=== PATIENT | female | born 1955 | race Hispanic/Latino ===

== ENCOUNTER 2018-02-24 13:29 | Emergency (ER) | payer MEDICAID ==
[~2018-02-24 13:29] MED LIST: AMLO10TA4 PO; ATEN100T PO; ATOR20TA65 PO; BISA10SU61 PO; CYCL30DR OP; FLUT30CR12 NASAL; INSNOV SQ; INSU100V12 SQ; NITR0.4T50 SL; OMEP-272 PO
[2018-02-24] MEDS ORDERED: ACETAMINOPHEN-CODEINE 300/30MG TAB ONE (15:26)
== END 2018-02-24 16:35 | disposition home or self-care (01) ==
LOC: EDH 13:29
DX: S02.5XXA Fracture of tooth (traumatic), initial encounter for closed fracture (principal); S13.4XXA Sprain of ligaments of cervical spine, initial encounter; S00.93XA Contusion of unspecified part of head, initial encounter; I12.9 Hypertensive chronic kidney disease with stage 1 through stage 4 chronic kidney disease, or unspecified chronic kidney disease; E11.22 Type 2 diabetes mellitus with diabetic chronic kidney disease; N18.9 Chronic kidney disease, unspecified; F32.9 Major depressive disorder, single episode, unspecified; Z91.041 Radiographic dye allergy status; Z98.890 Other specified postprocedural states; W01.10XA Fall on same level from slipping, tripping and stumbling with subsequent striking against unspecified object, initial encounter; Y93.01 Activity, walking, marching and hiking; Y92.410 Unspecified street and highway as the place of occurrence of the external cause; Y99.8 Other external cause status
CPT/HCPCS: 70486; 72125

== ENCOUNTER 2024-03-08 11:46 | Emergency (ER) | payer MEDICARE ==
[~2024-03-08] VITALS: Ht 152.4 cm; Wt 63.5 kg
[~2024-03-08 11:46] MED LIST changes: -AMLO10TA4 PO; +ASPI-1197 PO; -ATEN100T PO; -ATOR20TA65 PO; +ATOR40TA69 PO; +AZEL137S11 NS; -BISA10SU61 PO; +BUDE10.26 IH; +CARV6.25 PO; +CHOL100040 PO; +CLOP-31 PO; -CYCL30DR OP; +DAPA5TAB PO; +DOXY100C5 PO; +FLUT15.845 NS; -FLUT30CR12 NASAL; +FOLI1TAB85 PO; +GABA-529 PO; +HYDR50TA37 PO; -INSNOV SQ; -INSU100V12 SQ; +LOSA100T59 PO; +MONT-47 PO; +NIFE-78 PO; -NITR0.4T50 SL; -OMEP-272 PO; +OMEP40CA21 PO; +ONDA-104 PO; +TORS20TA4 PO
[2024-03-08 12:53] LABS: BASOPHILS # (AUTO) 0.08 K/uL (0.00-0.20); BASOPHILS % (AUTO) 0.7 % (0.0-5.0); EOSINOPHILS # (AUTO) 0.41 K/uL (0.00-0.70); EOSINOPHILS % (AUTO) 3.7 % (0.0-8.0); HEMATOCRIT 33.4 % (36-48); IMMATURE GRANULOCYTE ABSOLUTE 0.05 K/uL (0-1); LYMPHOCYTES # (AUTO) 1.6 K/uL (1.0-4.8); LYMPHOCYTES % (AUTO) 14.4 % (21.0-51.0); MEAN CORPUSCULAR HGB CONC 31.7 g/dL (32.0-36.0); MEAN CORPUSCULAR VOLUME 97.7 fL (79-99); MONOCYTES # (AUTO) 0.8 K/uL (0.1-1.0); MONOCYTES % (AUTO) 6.9 % (3.0-13.0); NEUTROPHILS # (AUTO) 8.1 K/uL (1.8-7.7); NEUTROPHILS % (AUTO) 73.8 % (40.0-77.0); PLATELET COUNT (AUTO) 290 K/uL (130-400); RED BLOOD CELL COUNT(AUTO) 3.42 MIL/uL (4.00-5.50); RED CELL DISTRIBUTION WIDTH 14.5 % (11.0-15.5)
[2024-03-08 13:22] LABS: B-TYPE NATRIURETIC PEPTIDE 538 pg/mL (0-100)
[2024-03-08 13:23] LABS: POTASSIUM 3.6 mmol/L (3.5-5.1)
[2024-03-08] MEDS ORDERED: CEPH500C2 PO (14:01)
--- NOTE | 2024-03-08 14:02 | ERN ---
General Chief Complaint: Face Pain/Problem Stated Complaint: FACIAL SWELLING ONSET 0800 Time Seen by MD: 11:52 History of Present Illness Initial Comments 68-year-old female who presents for facial swelling. Patient was just admitted to this hospital for about a week for fluid overload. She was discharged with a diagnosis of cellulitis and fluid overload pulmonary edema. She was switched from IV diuretics to torsemide, her 1st dose was last night. She also started taking oral doxycycline last night. She woke up this morning with bilateral eye puffiness and itching. She denies any dyspnea cough congestion sore throat swelling or rash. Is unclear if it was this is a reaction to the torsemide or to the doxycycline. Allergies: Coded Allergies: iodine (Unverified Allergy, Hives, itching, 10/16/12) Home Meds Active Scripts Doxycycline Hyclate (Doxycycline Hyclate) 100 Mg Capsule, 100 MG PO BID, #8 CAP Prov:MILAN VELAZQUEZ [employer] 03/07/24 Nifedipine (Nifedipine ER) 30 Mg Tablet.er, 30 MG PO TIDMEALS, #90 TAB 0 Refills Prov:YANDEL GARCIA AGPCNP 03/03/24 Atorvastatin Calcium (LIPITOR) 40 Mg Tablet, 40 MG PO HS, #30 TAB 0 Refills Prov:[facility] 03/03/24 Reported Medications Budesonide/Formoterol Fumarate (Budesonide-Formoterol 160-4.5) 160 Mcg-4.5 Mcg/Actuation Hfa.aer.ad, 1 PUFF IH DAILY for 30 Days, #10.2 GM 0 Refills 03/01/24 Carvedilol (Carvedilol) 6.25 Mg Tablet, 1 TAB PO BID 02/27/24 Fluticasone Propionate (Fluticasone Propionate) 50 Mcg/Actuation [place].susp, 2 SPRAY NS DAILY for 30 Days, #16 GM 0 Refills 02/26/24 Azelastine HCl (Azelastine HCl) 137 Mcg (0.1 %) [place].pump, 2 SPRAY NS BID for 30 Days, #30 ML 0 Refills 02/26/24 Cholecalciferol (Vitamin D3) (Vitamin D3) 25 Mcg (1000 Unit) Capsule, 1 CAP PO DAILY for 30 Days, #30 CAP 0 Refills 02/26/24 Ondansetron HCl (Ondansetron HCl) 4 Mg Tablet, 1 TAB PO Q4HPRN PRN for nausea/vomiting for 3 Days, #18 TAB 0 Refills 02/26/24 Aspirin (Aspirin) 81 Mg Tab.chew, 1 TAB PO DAILY for 30 Days, #30 TAB 0 Refills 02/26/24 Montelukast Sodium (Singulair) 10 Mg Tablet, 10 MG PO HS, TAB 02/26/24 Dapagliflozin Propanediol (Farxiga) 5 Mg Tablet, 5 MG PO DAILY, TAB 02/26/24 Hydralazine HCl (Hydralazine HCl) 50 Mg Tablet, 1 TAB PO BID for 30 Days, #60 TAB 0 Refills 02/26/24 Torsemide (Torsemide) 20 Mg Tablet, 1 TAB PO DAILY for 30 Days, #30 TAB 0 Refills 02/26/24 Losartan Potassium (Losartan Potassium) 100 Mg Tablet, 1 TAB PO DAILY for 30 Days, #30 TAB 0 Refills 02/26/24 Omeprazole (Omeprazole) 40 Mg Capsule.dr, 1 CAP PO DAILY for 30 Days, #30 CAP 0 Refills 02/26/24 Clopidogrel Bisulfate (Plavix) 75 Mg Tablet, 1 TAB PO DAILY for 30 Days, #30 TAB 0 Refills 02/26/24 Vit B Cmplx 3/FA/Vit C/Biotin (Shazia-Al Rx Tablet) 1 Mg-60 Mg-300 Mcg Tablet, 1 TAB PO DAILY for 30 Days, #30 TAB 0 Refills 02/26/24 Gabapentin (Gabapentin) 100 Mg Capsule, 3 CAP PO BID for 30 Days, #90 CAP 0 Refills 02/26/24 Discontinued Reported Medications Rosuvastatin Calcium (Rosuvastatin Calcium) 20 Mg Tablet, 20 MG PO DAILY, TAB 02/26/24 Past Medical History Past Medical History: Asthma, Diabetes-Type II, High Cholesterol, Hypertension, Kidney Infection, Sinusitis, Vascular Disease Medical History Other: CHRONIC BACK PAIN Past Surgical History: Appendectomy Surgical History Other: BACK SX ROS Dictation CONSTITUTIONAL: No chills, no fever, no weakness, no diaphoresis, no malaise. HEAD/FACE: No signs of trauma. EENT: No eye pain, no blurred vision, no tearing, no double vision, no ear pain, no ear discharge, no nose pain, no nasal congestion, no throat pain, no throat swelling, no mouth pain. RESPIRATORY: No cough, no orthopnea, no SOB, no stridor, no wheezing. CARDIOVASCULAR: No chest pain, no edema, no palpitations, no syncope. GASTROINTESTINAL/ABDOMINAL: No abdominal pain, no constipation, no diarrhea, no nausea, no vomiting. GENITOURINARY: No abnormal discharge, no dysuria, no frequent urination, no hematuria. No complaints of pain in the genitals. MUSCULOSKELETAL: No back pain, no gout, no joint pain, no joint swelling, no muscle pain, no muscle stiffness, no neck pain. INTEGUMENTARY: Face swelling NEUROLOGICAL/PSYCH: No anxiety, not depressed, no emotional problem, no headache, no numbness, no pre-existing deficit, no history of seizures, no tremors, no weakness. HEMATOLOGIC/LYMPHATIC: Not anemic, no history of blood clots, no apparent bleeding, no bruising, glands not swollen. All Systems Negative, Except as Noted. Physical Exam Physical Exam Dictation VITAL SIGNS: Reviewed. GENERAL APPEARANCE: Alert, oriented x3, no acute distress, obese. HEAD AND FACE: Non-traumatic. EYES: PERRL, pink conjunctivas, eyelid no trauma, anterior chamber clear. EARS: Pinnas intact and no signs of trauma or erythema. Ear canals clear and no discharge. TMs no erythema. NOSE: No discharge, no bleeding. OROPHARYNX: Mouth normal, teeth no caries, tongue pink. Pharynx clear, no erythema. Tonsils no exudates, no abscesses noted. Mucous membrane moist. NECK: Supple, non-tender, no thyromegaly, no masses, no JVD, no bruits. BREAST: Deferred. CHEST: No tenderness, no crepitus, no paradoxical movement, no retractions. LUNGS: Clear, well-ventilated, symmetric, no rales, no wheezing, no rhonchi, no stridor, good breath sounds bilaterally. HEART: Regular rate, regular rhythm, no murmur, no gallops. VASCULAR: No peripheral edema. ABDOMEN: Soft, positive bowel sounds, nondistended, no guarding, nontender, no rebound, no masses no hepatomegaly, no splenomegaly, no Meza's sign, no hernias. RECTAL: Deferred. GENITAL: Deferred. NEUROLOGICAL: Normal speech, gross motor function intact, gross sensory function intact. MUSCULOSKELETAL: Neck nontender, full range of motion, back nontender, full range of motion. EXTREMITIES: Nontender, full range of motion. SKIN: Color pink, dry, no turgor, no rash, no lacerations, no abrasions, no contusions. LYMPHATICS: Deferred. Results Laboratory and Microbiology Lab and Micro Result Laboratory Tests Test 03/08/24 12:44 White Blood Count 11.0 K/uL (4.8-10.8) H Red Blood Count 3.42 MIL/uL (4.00-5.50) L Hemoglobin 10.6 g/dL (12.0-16.0) L Hematocrit 33.4 % (36-48) L Mean Corpuscular Volume 97.7 fL (79-99) Mean Corpuscular Hemoglobin 31.0 pg (27.0-33.0) Mean Corpuscular Hemoglobin Concent 31.7 g/dL (32.0-36.0) L Red Cell Distribution Width 14.5 % (11.0-15.5) Platelet Count 290 K/uL (130-400) Mean Platelet Volume 11.2 fL (7.5-10.5) H Immature Granulocyte % (Auto) 0.5 % (0-1) Neutrophils (%) (Auto) 73.8 % (40.0-77.0) Lymphocytes (%) (Auto) 14.4 % (21.0-51.0) L Monocytes (%) (Auto) 6.9 % (3.0-13.0) Eosinophils (%) (Auto) 3.7 % (0.0-8.0) Basophils (%) (Auto) 0.7 % (0.0-5.0) Neutrophils # (Auto) 8.1 K/uL (1.8-7.7) H Lymphocytes # (Auto) 1.6 K/uL (1.0-4.8) Monocytes # (Auto) 0.8 K/uL (0.1-1.0) Eosinophils # (Auto) 0.41 K/uL (0.00-0.70) Basophils # (Auto) 0.08 K/uL (0.00-0.20) Absolute Immature Granulocyte (auto 0.05 K/uL (0-1) Nucleated Red Blood Cells 0.0 % (0.0-0.19) Sodium Level 146 mmol/L (136-145) H Potassium Level 3.6 mmol/L (3.5-5.1) Chloride Level 113 mmol/L (101-111) H Carbon Dioxide Level 24 mmol/L (21-32) Blood Urea Nitrogen 48 mg/dL (7-18) H Creatinine 3.0 mg/dL (0.5-1.0) H Glomerular Filtration Rate Calc 17 mL/min (>90) Random Glucose 129 mg/dL (70-105) H Total Calcium 8.2 mg/dL (8.5-10.1) L B-Type Natriuretic Peptide 538 pg/mL (0-100) H MDM CC: Face swelling Historian: Patient Comorbidities: Advanced age, diabetes, hypertension, CHF, CKD, obesity Limitations by social determinants of health: None Differential diagnosis: Medication reaction, allergic reaction. Vital signs are stable, remained stable in the ER The lab work is at baseline. I reviewed the patient's chart including previous labs. Everything appears to be at baseline. There is no imaging indicated Difficult to tell if this is a reaction to the torsemide of the doxycycline. It is consistent with an allergic reaction. She did recently start doxycycline. We will recommend that she stops taking the doxycycline and switch to Keflex. We will recommend that she continues with the torsemide. She will follow up with her symptoms return to the emergency department 48 hours if she has a concerns. I have very low suspicion for anaphylaxis, flank fluid overload, or other life-threatening pathology at this time. ED Course Orders Procedure Category Date Status Time Cbc With Differential LAB 03/08/24 Complete 12:29 B-Type Natriuretic LAB 03/08/24 Complete Peptide 12:29 Chest 1vw RAD 03/08/24 Logged 12:29 Basic Metabolic Panel LAB 03/08/24 Complete 12:29 12 Lead Ekg Tracing- EKG 03/08/24 Logged Technical 12:29 Vital Signs Date Time Temp Pulse Resp B/P (MAP) Pulse Ox O2 Delivery O2 Flow Rate FiO2 03/08/24 11:48 97.9 77 16 135/70 97 Room Air 0 DX & DISP Disposition: Discharge Departure Impression: Primary Impression: Facial swelling Condition: Stable Assign Patient to: As we discussed, it was difficult to tell if you are having a reaction to the torsemide or the doxycycline. As we discussed, stop taking the doxycycline. I have prescribed cephalexin to take instead. Take this 3 times per day as prescribed. Continue with the torsemide. Your lab work is unremarkable. Your at your baseline. If you continue with swelling or any other concerning symptoms in 48 hours, I recommend that you return to the emergency department for re-evaluation or follow up with the primary doctor. Scripts Cephalexin (Cephalexin) 500 Mg Capsule 1 CAP PO TID for 7 Days, #21 CAP 0 Refills Prov: JOSLYN RILEY DO 03/08/24 Referrals: NICANOR ZAPATA (PCP) JOSLYN RILEY DO Mar 08, 2024 14:02
[2024-03-08] MEDS: dexaMETHasone SOD PHOSPHATE 4 MG/ML 1ML VIAL IM ONE (14:07)
[2024-03-08 14:30] VITALS: BP 163/62; PULSE 84; RESP 18; TEMP 98.7; O2SAT 97
--- NOTE | 2024-03-08 14:54 | HMCIMG ---
CHEST 1VW REASON: swelling COMPARISON: 02/28/2024 FINDINGS: Single view of the chest was obtained. Lungs are clear. Heart size is normal. There is no pulmonary vascular congestion. Mediastinum and bony thorax appear unremarkable. Posterior column stimulator leads appear unchanged. IMPRESSION: 1. No acute finding.
== END 2024-03-08 14:31 | disposition home or self-care (01) ==
LOC: EDH 11:46
DX: R22.0 Localized swelling, mass and lump, head (principal); I10 Essential (primary) hypertension; E11.9 Type 2 diabetes mellitus without complications; E66.9 Obesity, unspecified; E78.00 Pure hypercholesterolemia, unspecified; J45.909 Unspecified asthma, uncomplicated; Z79.02 Long term (current) use of antithrombotics/antiplatelets; Z79.82 Long term (current) use of aspirin; Z79.84 Long term (current) use of oral hypoglycemic drugs; Z79.899 Other long term (current) drug therapy; Z88.8 Allergy status to other drugs, medicaments and biological substances; Z90.49 Acquired absence of other specified parts of digestive tract; Z91.041 Radiographic dye allergy status
CPT/HCPCS: 99284; 71045; 80048; 83880; 85025; 36415; 96372; J1100

== ENCOUNTER 2024-03-09 17:44 | Emergency (ER) | payer MEDICARE ==
[~2024-03-09] VITALS: Ht 147.3 cm; Wt 72.6 kg
[~2024-03-09 17:44] MED LIST changes: +CEPH500C2 PO
--- NOTE | 2024-03-09 21:01 | ERN ---
General Chief Complaint: Hip Pain/Injury Stated Complaint: LEFT HIP TO LEG PAIN Time Seen by MD: 17:53 Time Seen by Midlevel: 17:53 Source: patient History of Present Illness Initial Comments Patient is a 68-year-old female with a past medical history of chronic back pain and chronic pain presenting to the emergency department for evaluation of atraumatic left leg pain. Patients specifically denies any injury. Denies any fall. Patient was just seeking pain control. Denies any other symptoms at this time. Allergies: Coded Allergies: iodine (Unverified Allergy, Hives, itching, 10/16/12) Home Meds Active Scripts Cephalexin (Cephalexin) 500 Mg Capsule, 1 CAP PO TID for 7 Days, #21 CAP 0 Refills Prov:JOSLYN RILEY DO 03/08/24 Doxycycline Hyclate (Doxycycline Hyclate) 100 Mg Capsule, 100 MG PO BID, #8 CAP Prov:MILAN VELAZQUEZ [employer]CT [employer]PERATOR 03/07/24 Nifedipine (Nifedipine ER) 30 Mg Tablet.er, 30 MG PO TIDMEALS, #90 TAB 0 Refills Prov:YANDEL GARCIA AGPCNP 03/03/24 Atorvastatin Calcium (LIPITOR) 40 Mg Tablet, 40 MG PO HS, #30 TAB 0 Refills Prov:[facility]DEL GARCIA [facility] 03/03/24 Reported Medications Budesonide/Formoterol Fumarate (Budesonide-Formoterol 160-4.5) 160 Mcg-4.5 Mcg/Actuation Hfa.aer.ad, 1 PUFF IH DAILY for 30 Days, #10.2 GM 0 Refills 03/01/24 Carvedilol (Carvedilol) 6.25 Mg Tablet, 1 TAB PO BID 02/27/24 Fluticasone Propionate (Fluticasone Propionate) 50 Mcg/Actuation [place].susp, 2 SPRAY NS DAILY for 30 Days, #16 GM 0 Refills 02/26/24 Azelastine HCl (Azelastine HCl) 137 Mcg (0.1 %) [place].pump, 2 SPRAY NS BID for 30 Days, #30 ML 0 Refills 02/26/24 Cholecalciferol (Vitamin D3) (Vitamin D3) 25 Mcg (1000 Unit) Capsule, 1 CAP PO DAILY for 30 Days, #30 CAP 0 Refills 02/26/24 Ondansetron HCl (Ondansetron HCl) 4 Mg Tablet, 1 TAB PO Q4HPRN PRN for nausea/v omiting for 3 Days, #18 TAB 0 Refills 02/26/24 Aspirin (Aspirin) 81 Mg Tab.chew, 1 TAB PO DAILY for 30 Days, #30 TAB 0 Refills 02/26/24 Montelukast Sodium (Singulair) 10 Mg Tablet, 10 MG PO HS, TAB 02/26/24 Dapagliflozin Propanediol (Farxiga) 5 Mg Tablet, 5 MG PO DAILY, TAB 02/26/24 Hydralazine HCl (Hydralazine HCl) 50 Mg Tablet, 1 TAB PO BID for 30 Days, #60 TAB 0 Refills 02/26/24 Torsemide (Torsemide) 20 Mg Tablet, 1 TAB PO DAILY for 30 Days, #30 TAB 0 Refills 02/26/24 Losartan Potassium (Losartan Potassium) 100 Mg Tablet, 1 TAB PO DAILY for 30 Days, #30 TAB 0 Refills 02/26/24 Omeprazole (Omeprazole) 40 Mg Capsule.dr, 1 CAP PO DAILY for 30 Days, #30 CAP 0 Refills 02/26/24 Clopidogrel Bisulfate (Plavix) 75 Mg Tablet, 1 TAB PO DAILY for 30 Days, #30 TAB 0 Refills 02/26/24 Vit B Cmplx 3/FA/Vit C/Biotin (Shazia-Al Rx Tablet) 1 Mg-60 Mg-300 Mcg Tablet, 1 TAB PO DAILY for 30 Days, #30 TAB 0 Refills 02/26/24 Gabapentin (Gabapentin) 100 Mg Capsule, 3 CAP PO BID for 30 Days, #90 CAP 0 Refills 02/26/24 Discontinued Reported Medications Rosuvastatin Calcium (Rosuvastatin Calcium) 20 Mg Tablet, 20 MG PO DAILY, TAB 02/26/24 Past Medical History Past Medical History: Asthma, Diabetes-Type II, High Cholesterol, Hypertension, Kidney Infection, Sinusitis, Vascular Disease Medical History Other: CHRONIC BACK PAIN Past Surgical History: Appendectomy Surgical History Other: BACK SX ROS Dictation CONSTITUTIONAL: Negative except for HPI HEAD/FACE: Negative except for HPI EENT: Negative except for HPI RESPIRATORY: Negative except for HPI GASTROINTESTINAL/ABDOMINAL: Negative except for HPI GENITOURINARY: Negative except for HPI MUSCULOSKELETAL: Negative except for HPI INTEGUMENTARY: Negative except for HPI NEUROLOGICAL/PSYCH: Negative except for HPI HEMATOLOGIC/LYMPHATIC: Negative except for HPI All Systems Negative, Except as noted above. 13 point review of systems assessed and all negative except for above. Physical Exam Physical Exam Dictation PHYSICAL EXAM: GENERAL: alert,, awake oriented x 3 HEENT: EOMI, Sclera non icteric, moist mucosa NECK: Supple, no JVD, trachea midline LUNGS: Clear breath sounds bilaterally. No wheezes HEART: Regular rate and rhythm. Normal S1 and S2, without murmurs ABD: Abdomen soft, nontender. Bowel sounds present EXT: No clubbing or cyanosis, NEURO: Alert and oriented to person, follows commands MDM MDM: Patient is a 68-year-old female with a past medical history of chronic back pain and chronic pain presenting to the emergency department for evaluation of atraumatic left leg pain. Patients specifically denies any injury. Denies any fall. Patient was just seeking pain control. Denies any other symptoms at this time. On physical examination patient is in no acute distress. Vital signs are stable. There was no palpable tenderness. Patient has full range motion of bilateral upper and lower extremities. Patient believes this pain is from her chronic low back pain. Patient was given 4 mg of morphine in the emergency department and will be discharged home with supportive management. Return precautions discussed Differential diagnosis: Chronic pain, malingering, drug-seeking There are no social concerns with this patient. Prescription drug management Prescriptions will include: None Medical management and examination interpretation discussions were had by me with other qualified healthcare professionals as indicated for the patient's care. ED Course Orders Procedure Category Date Status Time Morphine 4mg Syg PHA 03/09/24 Complete (Morphine 4mg Syg) 21:00 Current Medications Medications (Trade) Dose Ordered Sig/Yefri Route PRN Reason Start Time Stop Time Status Last Admin Dose Admin Morphine Sulfate (morPHINE 4MG SYG) 4 mg ONCE ONCE IM 03/09/24 21:00 03/09/24 21:01 DC 03/09/24 22:20 Vital Signs Date Time Temp Pulse Resp B/P (MAP) Pulse Ox O2 Delivery O2 Flow Rate FiO2 03/09/24 22:38 97.2 53 16 103/55 98 Room Air* 0 21 03/09/24 19:09 97.9 62 16 102/61 99 Room Air DX & DISP Disposition: Discharge Departure Impression: Primary Impression: Chronic pain of left lower extremity Condition: Stable Additional Instructions: You were given pain medication in the emergency department. You will need to follow up with your primary care doctor in 2-3 days for repeat evaluation. Return to the ER for any new or worsening symptoms Referrals: NICANOR ZAPATA (PCP) Time of Disposition: 21:01 I have reviewed the case, and I agree with, Diagnosis and Plan I performed the substantive portion of the visit. I have reviewed and personally made and approve the management plan that is documented in the note by myself or the RYAN. I acknowledge for responsibility for the patient's management plan. AMARILIS LUO Mar 09, 2024 21:01
[2024-03-09] MEDS: morPHINE 4 MG SYG IM ONE (22:20)
[2024-03-09 22:38] VITALS: BP 103/55; PULSE 53; RESP 16; TEMP 97.1; O2SAT 98
== END 2024-03-09 22:39 | disposition home or self-care (01) ==
LOC: EDH 17:44
DX: G89.29 Other chronic pain (principal); M79.605 Pain in left leg; E11.59 Type 2 diabetes mellitus with other circulatory complications; E78.00 Pure hypercholesterolemia, unspecified; I10 Essential (primary) hypertension; J45.909 Unspecified asthma, uncomplicated; Z79.02 Long term (current) use of antithrombotics/antiplatelets; Z79.82 Long term (current) use of aspirin; Z79.84 Long term (current) use of oral hypoglycemic drugs; Z79.899 Other long term (current) drug therapy; Z88.8 Allergy status to other drugs, medicaments and biological substances; Z90.49 Acquired absence of other specified parts of digestive tract; Z91.041 Radiographic dye allergy status
CPT/HCPCS: 99284; 96372; J2270

== ENCOUNTER 2024-03-10 17:11 | Inpatient (IN) | payer MEDICARE ==
[~2024-03-10] VITALS: Ht 167.6 cm; Wt 76.8 kg
--- NOTE | 2024-03-10 17:40 | HMCIMG ---
CT HEAD/BRAIN W/O CONTRAST INDICATION: AMS TECHNIQUE: CT HEAD/BRAIN W/O CONTRAST. CT was performed with one or more of the following dose reduction techniques: Automated exposure control, adjustment of the mA and/or kV according to the patient's size, or use of the iterative reconstruction technique. Comparison: None FINDINGS: Cerebral atrophy seen. Nonspecific periventricular and subcortical white matters changes are noted likely representing small vessel ischemic changes. No midline shift or herniation. No extra axial collection. No acute intracranial bleed. The visualized paranasal sinuses and mastoid air cells are normally aerated. IMPRESSION: Mild atrophy. No acute intracranial bleed is seen. Scattered nonspecific white matter changes
[2024-03-10] MEDS: LORazepam 2 MG/ML 1 ML VIAL IVP STA (17:46)
[2024-03-10] MEDS: LORazepam 2 MG/ML 1 ML VIAL ONE (17:59)
[2024-03-10 18:09] LABS: APPEARANCE,URINE CLOUDY (CLEAR); BILIRUBIN,URINE NEGATIVE (NEGATIVE); COLOR,URINE LIGHT-YELLOW (YELLOW); GLUCOSE, URINE (UA) 500 mg/dL (NEGATIVE); KETONES,URINE NEGATIVE (NEGATIVE); LEUKOCYTE ESTERASE ,URINE NEGATIVE Leu/uL (NEGATIVE); NITRATE,URINE NEGATIVE (NEGATIVE); OCCULT BLOOD,URINE NEGATIVE (NEGATIVE); PROTEIN,URINE 600 mg/dL (NEGATIVE); UROBILINOGEN,URINE 0.2 mg/dL (0.2-1.0)
[2024-03-10 18:11] LABS: ADD UA MICROSCOPIC YES
[2024-03-10 18:12] LABS: BACTERIA,URINE RARE /HPF (None Seen); MUCUS,URINE RARE LPF (None Seen); RBC,URINE 0-1 /HPF (0-1); SQUAMOUS EPITHELIAL CELL,UR RARE /HPF (0-2)
[2024-03-10 18:15] LABS: CREATININE 3.5 mg/dL (0.5-1.0); POTASSIUM 3.6 mmol/L (3.5-5.1)
[2024-03-10 18:17] LABS: B-TYPE NATRIURETIC PEPTIDE 611 pg/mL (0-100)
[2024-03-10 18:20] LABS: BASOPHILS # (AUTO) 0.04 K/uL (0.00-0.20); BASOPHILS % (AUTO) 0.3 % (0.0-5.0); EOSINOPHILS # (AUTO) 0.22 K/uL (0.00-0.70); EOSINOPHILS % (AUTO) 1.8 % (0.0-8.0); HEMATOCRIT 32.5 % (36-48); IMMATURE GRANULOCYTE ABSOLUTE 0.05 K/uL (0-1); LYMPHOCYTES # (AUTO) 1.2 K/uL (1.0-4.8); LYMPHOCYTES % (AUTO) 10.2 % (21.0-51.0); MEAN CORPUSCULAR HGB CONC 32.3 g/dL (32.0-36.0); MEAN CORPUSCULAR VOLUME 95.9 fL (79-99); MONOCYTES # (AUTO) 0.8 K/uL (0.1-1.0); MONOCYTES % (AUTO) 6.3 % (3.0-13.0); NEUTROPHILS # (AUTO) 9.8 K/uL (1.8-7.7); PLATELET COUNT (AUTO) 293 K/uL (130-400); RED BLOOD CELL COUNT(AUTO) 3.39 MIL/uL (4.00-5.50); RED CELL DISTRIBUTION WIDTH 14.7 % (11.0-15.5); WHITE BLOOD COUNT (AUTO) 12.1 K/uL (4.8-10.8)
--- NOTE | 2024-03-10 18:21 | HMCIMG ---
INDICATION: SOB TECHNIQUE: CHEST 1VW COMPARISON: 03/08/2024 FINDINGS/IMPRESSION: Bilateral airspace consolidation suggesting vascular congestion/edema versus pneumonia. Small right effusion is seen. Cardiomegaly is seen Mild degenerative changes of the spine. The visualized upper abdomen appears unremarkable.
[2024-03-10 18:27] LABS: AMPHET/METH SCREEN,URINE NEGATIVE (NEGATIVE); BARBITURATE SCREEN, URINE NEGATIVE (NEGATIVE); BENZODIAZEPINES SCREEN,URINE NEGATIVE (NEGATIVE); CANNABINOID SCREEN,URINE NEGATIVE (NEGATIVE); COCAINE SCREEN,URINE NEGATIVE (NEGATIVE); OPIATE SCREEN,URINE NEGATIVE (NEGATIVE); PHENCYCLIDINE SCREEN,URINE NEGATIVE (NEGATIVE)
--- NOTE | 2024-03-10 18:35 | NUR ---
1715- VERIFIED WITH PROVIDER IF CODE STROKE NEEDED TO BE CALLED BUT NO NEED AT THIS TIME
[2024-03-10 19:03] LABS: ABG BASE EXCESS -5.6 mmol/L (-2.0-3.0); ABG HCO3 19.3 mmol/L (21.0-28.0); ABG OXYGEN SATURATION 96.7 % (94.0-98.0); ABG PCO2 36 mmHg (32-45); ABG PH 7.345 (7.350-7.450); DEVICE COMMENT RR; PO2, ARTERIAL BG 91.8 mmHg (83.0-108.0); VENT MODE, BG NC (ROOM AIR)
--- NOTE | 2024-03-10 19:41 | ERN ---
ED Note History of Present Illness Stated Complaint: AMS Chief Complaint: Altered Mental Status Time Seen by MD: 17:16 Time Seen by Midlevel: 17:20 Dictation: 68-year-old female with a history of CKD, CHF, hypertension coming in via EMS for altered mental status onset today. EMS gave him Narcan on board. Spouse states patient take Tylenol three for her chronic back pain. Denies any recent falls, trauma, fever, nausea, vomiting. On initial evaluation patients that has anterior stable, she is awake but is not following commands. Allergies: Coded Allergies: iodine (Unverified Allergy, Hives, itching, 10/16/12) Home Meds Active Scripts Cephalexin (Cephalexin) 500 Mg Capsule, 1 CAP PO TID for 7 Days, #21 CAP 0 Refills Prov:JOSLYN RILEY DO 03/08/24 Doxycycline Hyclate (Doxycycline Hyclate) 100 Mg Capsule, 100 MG PO BID, #8 CAP Prov:MILAN VELAZQUEZ SENIOR MICROSTRATEGY DEVELOPER 03/07/24 Nifedipine (Nifedipine ER) 30 Mg Tablet.er, 30 MG PO TIDMEALS, #90 TAB 0 Refills Prov:YANDEL GARCIA AGPCNP 03/03/24 Atorvastatin Calcium (LIPITOR) 40 Mg Tablet, 40 MG PO HS, #30 TAB 0 Refills Prov:YANDEL GARCIA [employer] [facility] 03/03/24 Reported Medications Budesonide/Formoterol Fumarate (Budesonide-Formoterol 160-4.5) 160 Mcg-4.5 Mcg/Actuation Hfa.aer.ad, 1 PUFF IH DAILY for 30 Days, #10.2 GM 0 Refills 03/01/24 Carvedilol (Carvedilol) 6.25 Mg Tablet, 1 TAB PO BID 02/27/24 Fluticasone Propionate (Fluticasone Propionate) 50 Mcg/Actuation [place].susp, 2 SPRAY NS DAILY for 30 Days, #16 GM 0 Refills 02/26/24 Azelastine HCl (Azelastine HCl) 137 Mcg (0.1 %) [place].pump, 2 SPRAY NS BID for 30 Days, #30 ML 0 Refills 02/26/24 Cholecalciferol (Vitamin D3) (Vitamin D3) 25 Mcg (1000 Unit) Capsule, 1 CAP PO DAILY for 30 Days, #30 CAP 0 Refills 02/26/24 Ondansetron HCl (Ondansetron HCl) 4 Mg Tablet, 1 TAB PO Q4HPRN PRN for nausea/ vomiting for 3 Days, #18 TAB 0 Refills 02/26/24 Aspirin (Aspirin) 81 Mg Tab.chew, 1 TAB PO DAILY for 30 Days, #30 TAB 0 Refills 02/26/24 Montelukast Sodium (Singulair) 10 Mg Tablet, 10 MG PO HS, TAB 02/26/24 Dapagliflozin Propanediol (Farxiga) 5 Mg Tablet, 5 MG PO DAILY, TAB 02/26/24 Hydralazine HCl (Hydralazine HCl) 50 Mg Tablet, 1 TAB PO BID for 30 Days, #60 TAB 0 Refills 02/26/24 Torsemide (Torsemide) 20 Mg Tablet, 1 TAB PO DAILY for 30 Days, #30 TAB 0 Refills 02/26/24 Losartan Potassium (Losartan Potassium) 100 Mg Tablet, 1 TAB PO DAILY for 30 Days, #30 TAB 0 Refills 02/26/24 Omeprazole (Omeprazole) 40 Mg Capsule.dr, 1 CAP PO DAILY for 30 Days, #30 CAP 0 Refills 02/26/24 Clopidogrel Bisulfate (Plavix) 75 Mg Tablet, 1 TAB PO DAILY for 30 Days, #30 TAB 0 Refills 02/26/24 Vit B Cmplx 3/FA/Vit C/Biotin (Shazia-Al Rx Tablet) 1 Mg-60 Mg-300 Mcg Tablet, 1 TAB PO DAILY for 30 Days, #30 TAB 0 Refills 02/26/24 Gabapentin (Gabapentin) 100 Mg Capsule, 3 CAP PO BID for 30 Days, #90 CAP 0 Refills 02/26/24 Discontinued Reported Medications Rosuvastatin Calcium (Rosuvastatin Calcium) 20 Mg Tablet, 20 MG PO DAILY, TAB 02/26/24 Past Medical History Past Medical History: Asthma, Diabetes-Type II, High Cholesterol, Hypertension, Kidney Infection, Sinusitis, Vascular Disease Additional Past Medical Hx: CHRONIC BACK PAIN Surgical History: Appendectomy Surgical History Other: BACK SX Review of System Dictation Constitutional: Negative for fever,chills, and weight loss Eyes: Negative for injury, pain,redness, and discharge ENT: Negative for injury,pain or swelling Cardiovascular: Negative for chest pain, palpitations, and edema Respiratory: Negative for shortness of breath, cough, and wheezing, Abdomen/GI: Negative for abdominal pain, nausea, vomiting, diarrhea, and constipation Back: Negative for injury and pain : Negative for injury, bleeding and discharge MS/Extremity: Negative for injury and deformity Skin: Negative for rash, and discoloration Neuro: Negative for headache, weakness, numbness, tingling, and seizure Psych: Negative for suicide ideation, homicidal ideation, and hallucinations Review of Systems: was completed Initial Vital Sign VS Vital Signs Date Time Temp Pulse Resp B/P (MAP) Pulse Ox O2 Delivery O2 Flow Rate FiO2 03/10/24 17:13 98.4 86 18 121/85 98 0 03/10/24 17:24 Room Air* 21 Physical Exam Dictation General: awake, alert, however not answering questions and not following commands Head/Face: Normocephalic, atraumatic Eyes: PERRL, EOMI, vision at baseline ENT: oral cavity clear, TMs clear, no signs of infection Neck: Trachea midline, supple, no nuchal rigidity Cardiovascular: RRR, normal S1/S2, No MRGs, no JVD Respiratory: CTAB, no respiratory distress, No rales or wheezes Abdomen: Soft, non-tender, non-distended, normal bowel sounds, no guarding or rebound. Skin: Warm, dry, normal turgor, no rash MS/Extremity: Pulses equal, no cyanosis, neurovascular intact, FROM, tremors/jerking noted Neuro: , strength 5/5, CN 2-12 intact, Psych: Patient is awake, not answering any questions, not following any commands Results (Laboratory/Radiology) Laboratory/Radiology Laboratory Tests Test 03/10/24 17:31 03/10/24 17:36 03/10/24 17:55 03/10/24 19:00 Whole Blood Glucose 142 MG/DL (70-110) H White Blood Count 12.1 K/uL (4.8-10.8) H Red Blood Count 3.39 MIL/uL (4.00-5.50) L Hemoglobin 10.5 g/dL (12.0-16.0) L Hematocrit 32.5 % (36-48) L Mean Corpuscular Volume 95.9 fL (79-99) Mean Corpuscular Hemoglobin 31.0 pg (27.0-33.0) Mean Corpuscular Hemoglobin Concent 32.3 g/dL (32.0-36.0) Red Cell Distribution Width 14.7 % (11.0-15.5) Platelet Count 293 K/uL (130-400) Mean Platelet Volume 11.7 fL (7.5-10.5) H Immature Granulocyte % (Auto) 0.4 % (0-1) Neutrophils (%) (Auto) 81.0 % (40.0-77.0) H Lymphocytes (%) (Auto) 10.2 % (21.0-51.0) L Monocytes (%) (Auto) 6.3 % (3.0-13.0) Eosinophils (%) (Auto) 1.8 % (0.0-8.0) Basophils (%) (Auto) 0.3 % (0.0-5.0) Neutrophils # (Auto) 9.8 K/uL (1.8-7.7) H Lymphocytes # (Auto) 1.2 K/uL (1.0-4.8) Monocytes # (Auto) 0.8 K/uL (0.1-1.0) Eosinophils # (Auto) 0.22 K/uL (0.00-0.70) Basophils # (Auto) 0.04 K/uL (0.00-0.20) Absolute Immature Granulocyte (auto 0.05 K/uL (0-1) Nucleated Red Blood Cells 0.0 % (0.0-0.19) Sodium Level 144 mmol/L (136-145) Potassium Level 3.6 mmol/L (3.5-5.1) Chloride Level 110 mmol/L (101-111) Carbon Dioxide Level 23 mmol/L (21-32) Blood Urea Nitrogen 64 mg/dL (7-18) H Creatinine 3.5 mg/dL (0.5-1.0) H Glomerular Filtration Rate Calc 14 mL/min (>90) Random Glucose 130 mg/dL (70-105) H Lactic Acid Level 2.0 mmol/L (0.8-2.5) Total Calcium 8.2 mg/dL (8.5-10.1) L Ammonia 15 umol/L (11-32) Troponin I High Sensitivity 9 ng/L (4-50) B-Type Natriuretic Peptide 611 pg/mL (0-100) H Serum Alcohol < 3 mg/dL (0-10) Urine Color LIGHT-YELLOW (YELLOW) Urine Appearance CLOUDY (CLEAR) H Urine pH 6.0 (5.0-8.0) Urine Specific Jackson 1.014 (1.001-1.031) Urine Protein 600 mg/dL (NEGATIVE) H Urine Glucose (UA) 500 mg/dL (NEGATIVE) H Urine Ketones NEGATIVE mg/dL (NEGATIVE) Urine Occult Blood NEGATIVE (NEGATIVE) Urine Nitrate NEGATIVE (NEGATIVE) Urine Bilirubin NEGATIVE mg/dL (NEGATIVE) Urine Urobilinogen 0.2 mg/dL (0.2-1.0) Urine Leukocyte Esterase NEGATIVE Sarmad/uL Urine RBC 0-1 /HPF (0-1) Urine WBC 2-5 /HPF (0-1) H Urine Squamous Epithelial Cells RARE /HPF (0-2) Urine Bacteria RARE /HPF (None Seen) Urine Opiates Screen NEGATIVE (NEGATIVE) Urine Barbiturates Screen NEGATIVE (NEGATIVE) Urine Phencyclidine Screen NEGATIVE (NEGATIVE) Urine Amphetamines Screen NEGATIVE (NEGATIVE) Urine Benzodiazepines Screen NEGATIVE (NEGATIVE) Urine Cocaine Screen NEGATIVE (NEGATIVE) Urine Marijuana (THC) Screen NEGATIVE (NEGATIVE) Blood Gas Specimen Type Arterial Arterial Blood pH 7.345 (7.350-7.450) Arterial Blood Partial Pressure CO2 36 mmHg (32-45) Arterial Blood Partial Pressure O2 91.8 mmHg (83.0-108.0) Arterial Blood HCO3 19.3 mmol/L (21.0-28.0) L Arterial Blood Oxygen Saturation 96.7 % (94.0-98.0) Arterial Blood Base Excess -5.6 mmol/L (-2.0-3.0) L Blood Gas Temperature 37.0 CELSIUS (35.5-37.0) Blood Gas Flow-by 2.00 L/min (0.00-15.00) Blood Gas Vent Mode NC (ROOM AIR) FiO2 28.0 % Blood Gas Specimen Comment RR Labs Reviewed?: Yes EKG Comment: Date:03/10/24 Time:1737 Ventricular rate:80 [place] interval:144 QRS duration:-5 QT/QTc:399/460 EKG interpretation: Sinus rhythm, low voltage, precordial leads, borderline ST elevation, lateral leads Reviewed by ED Attending no STEMI interpreted by ER X-RAY Comment: [place] [id number] [id number] IMAGING REPORT Signed PATIENT: RADHA OWEN MR#: [id number] : 1955 SEX: F AGE: 68 LOCATION: ED ORDER 18 STATUS: REG [facility] REPORT#: [id number] SERVICE 16 REASON: SOB ORDERING PHYSICIAN: NOEL DUARTE NP PROCEDURE: CXR1VW - CHEST 1VW INDICATION: SOB TECHNIQUE: CHEST 1VW COMPARISON: 03/08/2024 FINDINGS/IMPRESSION: Bilateral airspace consolidation suggesting vascular congestion/edema versus pneumonia. Small right effusion is seen. Cardiomegaly is seen Mild degenerative changes of the spine. The visualized upper abdomen appears unremarkable. DICTATED BY: DEVON GEORGES MD DATE: 03/10/241818 ELECTRONICALLY SIGNED BY: DEVON GEORGES MD DATE: 03/10/241820 CT Scan Comment: [address] [id number] IMAGING REPORT Signed PATIENT: RADHA OWEN MR#: [id number] : 1955 SEX: F AGE: 68 LOCATION: ED ORDER 18 STATUS: REG ER REPORT#: [id number] SERVICE 16 REASON: AMS ORDERING PHYSICIAN: NOEL DUARTE NP PROCEDURE: HEAD WO - CT HEAD/BRAIN W/O CONTRAST CT HEAD/BRAIN W/O CONTRAST INDICATION: AMS TECHNIQUE: CT HEAD/BRAIN W/O CONTRAST. CT was performed with one or more of the following dose reduction techniques: Automated exposure control, adjustment of the mA and/or kV according to the patient's size, or use of the iterative reconstruction technique. Comparison: None FINDINGS: Cerebral atrophy seen. Nonspecific periventricular and subcortical white matters changes are noted likely representing small vessel ischemic changes. No midline shift or herniation. No extra axial collection. No acute intracranial bleed. The visualized paranasal sinuses and mastoid air cells are normally aerated. IMPRESSION: Mild atrophy. No acute intracranial bleed is seen. Scattered nonspecific white matter changes DICTATED BY: DEVON GEORGES MD DATE: 03/10/24 1736 ELECTRONICALLY SIGNED BY: DEVON GEORGES MD DATE: 03/10/24 1740 ED Course ED Course Orders Procedure Category Date Status Time Cbc With Differential LAB 03/10/24 Complete 17:17 Basic Metabolic Panel LAB 03/10/24 Complete 17:17 Lactic Acid LAB 03/10/24 Complete 17:17 Urinalysis Profile LAB 03/10/24 Complete 17:17 B-Type Natriuretic LAB 03/10/24 Complete Peptide 17:17 Chest 1vw RAD 03/10/24 Resulted 17:17 12 Lead Ekg Tracing- EKG 03/10/24 Logged Technical 17:17 Ct Head/Brain W/O CT 03/10/24 Resulted Contrast 17:17 Ammonia LAB 03/10/24 Complete 17:17 Drug Screen Urine LAB 03/10/24 Complete 17:17 Troponin I High LAB 03/10/24 Complete Sensitivity 17:26 Arterial Blood Gas RT 03/10/24 Transmitted 17:31 Alcohol, Blood LAB 03/10/24 Complete 17:32 Lorazepam 2 Mg PHA 03/10/24 Complete (Ativan) 17:38 Lorazepam 2 Mg PHA 03/10/24 Complete (Ativan) 17:39 Arterial Blood Gas LAB 03/10/24 Complete 19:00 0.9%Nacl 1000ml (Ns PHA 03/10/24 In Process 1000ml) 20:04 Edm Admit Bridge Order ADM 03/10/24 Transmitted 20:04 Blood Cult CAROLYN 03/10/24 Transmitted 20:16 Ceftriaxone 1g Vial PHA 03/10/24 Transmitted (Rocephine 1g Inj) 20:16 Azithromycin 500mg+Ns PHA 03/10/24 Transmitted 250ml (Azithromyci 20:16 Admit Orders ADM 03/10/24 Verified 20:18 Current Medications Medications (Trade) Dose Ordered Sig/Yefri Route PRN Reason Start Time Stop Time Status Last Admin Dose Admin Lorazepam (AtiVAN) 1 mg ONCE STAT IVP 03/10/24 17:39 03/10/24 17:40 DC 03/10/24 17:46 Lorazepam (AtiVAN) 2 mg STK-MED ONCE .ROUTE 03/10/24 17:38 03/10/24 17:39 DC Sodium Chloride 1,000 ml @ 500 mls/hr Q2H STAT IV 03/10/24 20:04 03/10/24 22:03 Vital Signs Date Time Temp Pulse Resp B/P (MAP) Pulse Ox O2 Delivery O2 Flow Rate FiO2 03/10/24 19:35 97.0 80 16 114/66 98 Nasal Cannula* 2 28 03/10/24 18:49 97.0 79 17 116/70 98 Nasal Cannula* 2 28 03/10/24 17:40 97.0 79 14 108/65 99 Nasal Cannula* 2 28 03/10/24 17:24 97.3 86 20 104/69 94 Room Air* 0 21 03/10/24 17:13 98.4 86 18 121/85 98 0 Medical Decision Making MDM MDM: 68-year-old female with a history of CKD, CHF, hypertension coming in via EMS for altered mental status onset today. EMS gave him Narcan on board. Spouse states patient take Tylenol three for her chronic back pain. Denies any recent falls, trauma, fever, nausea, vomiting. On initial evaluation patients that has anterior stable, she is awake but is not following commands. Spoke to the daughter on triage, states patient has not been taking the Tylenol three for few months now, states earlier she woke up normal, went to bed she noticed the jerking while she was sleeping, when she tried to wake her up patient was altered. Nurse states the twitching has been going on since she was admitted here in the hospital couple of weeks ago. Patient's daughter states she does take gabapentin on a regular basis for her chronic back pain but no other pain medication other than Tylenol.CBC shows leukocytosis of 12, normocytic anemia, no thrombocytopenia. Chemistry shows hyperglycemia, worsening kidney function from previous visits. Lactic level within normal range. Ammonia within normal range. Troponin negative. BNP 60 11, worsened from previous visit. UA shows no evidence of urinary tract infection, polystyrene bead molder negative. CT of the head shows mild atrophy no acute intracranial bleed. Chest x-ray shows bilateral airspace consolidation suggesting vascular congestion/edema versus pneumonia, small right pleural effusion, cardiomegaly. Blood cultures and antibiotics initiated in the ER for pneumonia, worsening on chest x-ray from previous visit. Spoke to EDEL Jennings for hospitalist, patient will be admitted for XIOMY on CKD, acute metabolic encephalopathy, pneumonia and altered mental status. ER MD at bedside assisting patient was me, patient's vital signs are stable patient is maintaining her respirations, no need to further intervene. Differential diagnosis: ICH, CVA, metabolic acidosis, dehydration, MO Rationale: Tests considered and ordered secondary to shared decision making include: labs, ECG and radiology Previous outside records reviewed: Old ER visits. Risk of complication and/or morbidity or mortality of patient management: None Medications-Per medication reconciliation Need for hospitalization: Patient does meet criteria for hospitalization. Need for emergency major/minor surgery: No There are no social concerns with this patient. Prescription drug management Prescriptions will include symptomatic care Patient's prior external medical records from other ER visits were reviewed by me as indicated. Prior testing and results from previous visits were reviewed. Prior tests were taken into account with medical decision making and resource utilization, independent historian/historians were used to obtain complete medical history. I independently interpreted the test that were performed, results were reviewed by me and considered findings on radiology if ordered. Medical management and examination interpretation discussions were had by me with other qualified healthcare professionals as indicated for the patient's care. DX & DISP Disposition: Inpatient Decision to Admit Date: Mar 10, 2024 Decision to Admit Time: 20:20 Departure Impression: Primary Impression: Pneumonia Additional Impressions: Acute kidney injury superimposed on CKD, Acute metabolic encephalopathy, Altered mental status Condition: Stable Referrals: NICANOR ZAPATA (PCP) I have reviewed the case, and I agree with, Diagnosis and Plan NOEL DUARTE NP Mar 10, 2024 19:41
--- NOTE | 2024-03-10 20:23 | HP ---
History of Present Illness Reason for Visit: [facility] History of Present Illness Ms. Mora Is a 68-year-old female that was seen and examined today on 03/10/2024. Patient is a poor historian and personal health. Patient's daughter Lora Mora is at bedside and able to provide the following information. Patient was brought to the emergency department by ambulance with a chief complaint of altered mental status. Onset was 1500. Location is to entire body. Duration is constant. Character is described as" she just not talking or able to get up. "There was no alleviating factors. There was no aggravating factors. Patient has been taking gabapentin for her back pain. Patient has also been having some muscle spasms. Muscle spasms were treated with 1 mg of Ativan IV in the emergency department. Emergency room physician recommended that patient be admitted with a diagnosis of metabolic encephalopathy. Today in the emergency department WBCs 12.1, left shift neutrophils 81.0% creatinine 3.5, BUN 64 urinalysis unremarkable, urine drug screen unremarkable. ABG unremarkable. Chest x-ray shows bilateral airspace consolidation she was just seen vascular congestion/edema versus pneumonia. Small right effusion is seen. CT of head shows mild atrophy. No acute intracranial bleed is seen. Scattered nonspecific white matter changes. Past Medical History Patient History: Carcinomas FATHER, , Age: 85 (lungs ) Cardiovascular disease MOTHER, , Age: 92 Diabetes mellitus MOTHER, , Age: 92 FATHER, , Age: 85 BROTHER SISTER SISTER SISTER Hypertension MOTHER, , Age: 92 SISTER SISTER SISTER No Family History of: Alzheimer's disease Asthma Chronic obstructive pulmonary disease Completed stroke Immunocompromised state Sudden Unknown ADDITIONAL PAST MEDICAL HISTORY: [Diabetes mellitius type2, hyperlipidemia, hypertension, CKD, asthma, PVD] SOCIAL HISTORY: [Negative for smoking, alcohol use, drug use. Patient lives with the daughter Lora. Patient requires assistance with her ADLs. Patient has good access to health care through her insurance. Patient denies difficulty paying her bills.] SURGICAL HISTORY: [Femoral popliteal bypass x2, back surgery, nerve stimulator implantation by Dr. Butler] Review of Systems General: No Fever, No Chills, No Night Sweats, No Fatigue, No Malaise, No Appetite, No Other HEENT: No Head Aches, No Visual Changes, No Eye Pain, No Ear Pain, No Dysphasia, No Sinus Congestion, No Post Nasal Drip, No Sore Throat, No Other Pulmonary: No Dyspnea, No Cough, No Pleuritic Chest Pain, No Other Cardiovascular: No: Chest Pain, Palpitations, Orthopnea, Paroxysmal Noc. Dyspnea, Edema, Lt Headedness, Other Gastrointestinal: No: Nausea, Vomiting, Abdominal Pain, Diarrhea, Constipation, Melena, Hematochezia, Other Genitourinary: No Dysuria, No Frequency, No Incontinence, No Hematuria, No Retention, No Other Musculoskeletal: No: other, neck pain, shoulder pain, arm pain, back pain, hand pain, leg pain, foot pain Skin: No Urticaria, No Rash, No Other Neurological: Confusion; No: Weakness, Numbness, Incoordination, Change in speech, Seizures, Other Allergies: Coded Allergies: iodine (Unverified Allergy, Hives, itching, 10/16/12) Scheduled Aspirin (Aspirin), 1 TAB PO DAILY, (Reported) Atorvastatin Calcium (Lipitor), 40 MG PO HS Azelastine HCl (Azelastine HCl), 2 SPRAY NS BID, (Reported) Budesonide/Formoterol Fumarate (Budesonide-Formoterol 160-4.5), 1 PUFF IH DAILY, (Reported) Carvedilol (Carvedilol), 1 TAB PO BID, (Reported) Cephalexin (Cephalexin), 1 CAP PO TID Cholecalciferol (Vitamin D3) (Vitamin D3), 1 CAP PO DAILY, (Reported) Clopidogrel Bisulfate (Plavix), 1 TAB PO DAILY, (Reported) Dapagliflozin Propanediol (Farxiga), 5 MG PO DAILY, (Reported) Doxycycline Hyclate (Doxycycline Hyclate), 100 MG PO BID Fluticasone Propionate (Fluticasone Propionate), 2 SPRAY NS DAILY, (Reported) Gabapentin (Gabapentin), 3 CAP PO BID, (Reported) Hydralazine HCl (Hydralazine HCl), 1 TAB PO BID, (Reported) Losartan Potassium (Losartan Potassium), 1 TAB PO DAILY, (Reported) Montelukast Sodium (Singulair), 10 MG PO HS, (Reported) Nifedipine (Nifedipine ER), 30 MG PO TIDMEALS Omeprazole (Omeprazole), 1 CAP PO DAILY, (Reported) Torsemide (Torsemide), 1 TAB PO DAILY, (Reported) Vit B Cmplx 3/FA/Vit C/Biotin (Shazia-Al Rx Tablet), 1 TAB PO DAILY, (Reported) Scheduled PRN Ondansetron HCl (Ondansetron HCl), 1 TAB PO Q4HPRN PRN for nausea/vomiting, (Reported) Exam Vital Signs Vital Signs Date Time Temp Pulse Resp B/P (MAP) Pulse Ox O2 Delivery O2 Flow Rate FiO2 03/10/24 19:35 97.0 80 16 114/66 98 Nasal Cannula* 2 28 General Appearance: Alert (x1), moderate distress HEENT: Atraumatic Respiratory: Other (Diminished air entry to bilateral lower lobes) Cardiovascular: Regular rate, Regular rhythm, Normal S1, Normal S2 Abdominal: Normal bowel sounds, Soft, No tenderness Extremities: No edema Skin: Other (Positive bruising to right forearm) Neuro: Normal speech, Strength at 5/5 X4 ext, Sensation intact, Cranial nerves 3-12 NL Psych/Mental Status: Mental status NL, Mood NL, Thoughts/Content NL Additional PE Genitourinary: Positive presence of [place] catheter Assessment/Plan ASSESSMENT: [ Metabolic encephalopathy, POA Leukocytosis, POA XIOMY on CKD, POA Right pleural effusion, POA Pulmonary congestion versus pneumonia, by chest x-ray Diabetes mellitius type2 Hypertension Asthma PVD Hyperlipidemia] PLAN: [ Admit patient to ICU as inpatient status. Place patient on telemetry monitoring. Patient will be followed by critical care team. Acute metabolic encephalopathy: Neuro checks every 4 hours with the vital signs (check GCS, level of consc iousness, extremity movement, pupil reaction, hand grasp strength, speech clarity) MRI in a.m.. Reviewed patient's CT of head unremarkable Leukocytosis: Check blood culture, follow up with the results Empiric antibiotic therapy with Zosyn Reviewed patient's urinalysis, unremarkable Chest x-ray suggestive of possible pneumonia xiomy on ckd: Patient will be followed by Nephrology Service. Calculate FENA Check urine sodium, creatinine, osmolality Avoid nephrotoxic agents when possible Renally dose all medications when possible Monitor patient's labs. Weight patient daily. Monitor intake and output. Small right pleural effusion: Patient will be followed by pulmonology service/critical Care team. Appreciate recommendations. Diabetes mellitus type 2: Check hemoglobin A1c in a.m. Glucometer checks a.c. and HS 1800 ADA diet once patient is more awake Humulin R sliding scale 1/2 dose Hypertension, asthma, PVD, hyperlipidemia: Consider resuming home medications once they have been reconciled inpatient is no longer NPO. For now, Hydralazine 10 mg IV every 4 hours for systolic blood pressure greater than 160 mmHg Albuterol 2.5 mg nebulized every 4 hours as needed for shortness of breaths DVT prophylaxis, heparin 5000 units subcutaneously twice daily. Critical Care Time: I spent ___ 51 ___ minutes of critical care time with the patient. I reviewe d lab work, change the patient's medication, and coordinated protocol in the event of tachycardia or desaturation. The patient status remains unchanged ADVANCED CARE PLANNING 1. Which of the following were discussed? Hospice Care - Yes Therapeutic options - Yes Advance Directives - Yes-patient does not have any advance directives in place at this time however her daughter Lora can make decisions for her if she becomes unable. Other discussions - patient wishes to remain a full code at this time 2. Discussed with who? Patient 3. Voluntary nature of this service was explained to the patient? Yes 4. Amount of time spent - ___ 16 minutes ____ 5. Reviewed by Physician? (if this service was performed by NPP) Yes This document was generated in part using voice recognition software, occasional wrong word or sound alike substitutions may have occurred due to the inherent limitations of voice recognition software. Read the chart carefully and recognize using context, where the substitutions have occurred. Although every effort was made to edit the content, silk opener and typing errors may occur ADDENDUM: ATTENDING PHYSICIAN ATTESTATION: I have seen and discussed this patient with the midlevel and I agree with their plan. See my addendum for updates to the medical plan MD UMA Crawford [facility] Mar 10, 2024 20:23 JOEL CASTELLANO MD Mar 11, 2024 11:07
[2024-03-10] MEDS: 0.9%NACL 1000ML 1,000 ML IV STA (20:40)
[2024-03-10] MEDS: cefTRIAXone 1G VIAL IVPB STA (20:42)
[2024-03-10] MEDS ORDERED: 0.9%NACL 50ML IV ONE (20:42)
[2024-03-10] MEDS: AZITHROMYCIN 500MG+NS 250ML 250 ML IVPB STA (20:42)
--- NOTE | 2024-03-10 20:51 | NUR ---
SPOKE WITH CRITICAL CARE Leroy FAUST NP ON PENDING CONSULT FOR PATIENT. NO FURTHER ORDERS GIVEN AT THIS TIME./ALICJA
--- NOTE | 2024-03-10 20:57 | NUR ---
EDEL FAUST AT BEDSIDE./ALICJA
[2024-03-10 21:18] LABS: ABG BASE EXCESS -7.6 mmol/L (-2.0-3.0); ABG HCO3 16.9 mmol/L (21.0-28.0); ABG OXYGEN SATURATION 96.8 % (94.0-98.0); ABG PCO2 32 mmHg (32-45); ABG PH 7.341 (7.350-7.450); DEVICE COMMENT RR RN; PO2, ARTERIAL BG 92.5 mmHg (83.0-108.0)
[2024-03-10] MEDS ORDERED: GLUCAGON 1MG KIT 1 MG ML IM PRN (21:30)
[2024-03-10] MEDS ORDERED: DEXTROSE 50%-WATER 50 ML DISP.SYRIN IV PRN (21:30)
--- NOTE | 2024-03-10 21:33 | CONS ---
[facility] CONSULTATION NOTE Date Patient Seen: Mar 10, 2024 Time of Visit: 21:18 Supervising Physician: [ DR. ROMA ALEXANDER] Reason for Consultation: [ CRITICAL CARE MANAGEMENT] Primary Care Physician: [ ] Outpatient Specialists: [ ] Inpatient Consults: [ ] PROBLEM LIST: 1. ACUTE METABOLIC ENCEPHALOPATHY 2. ACUTE ON CHRONIC KIDNEY INJURY 3. CHF ACUTE ON CHRONIC 4. BILATERAL LOWER LOBES PNEUMONIA 5. DIABETES TYPE 2 CHIEF COMPLAINT: Alteration of mental status HPI: Patient is a 68-year-old female with past medical history significant for chronic kidney disease, CHF, hypertension, hyperlipidemia, diabetes type 2, chronic back pain, and no surgical history of appendectomy, back surgery with back stimulator placement, brought to the emergency department for evaluation of new onset of alteration of mental status that was noted today around 03:20 PM. Daughter at bedside, patient suddenly became unresponsive and started shaking. EMS was called at the scene and patient was taken to the emergency department for further evaluation and treatment. The workup in the emergency department shows on his chest x-ray worsening CHF versus bilateral lower lobes pneumonia. The lab work in the emergency department reveals WBC of 12.1, creatinine 64, BUN 3.4, pro BNP of 611. UDS and ammonia level were normal. In the emergency department, patient received azithromycin and ceftriaxone. The critical care team has been consulted for critical care management. PAST MEDICAL HX: see above PAST SURGICAL HX: noncontributory SOCIAL HISTORY: No tobacco, ETOH, or illicit drug use Coded Allergies: iodine (Unverified Allergy, Hives, itching, 10/16/12) REVIEW OF SYSTEMS: 12 point ROS reviewed with patient. Pertinent positives mentioned above. Otherwise negative. PHYSICAL EXAM: GENERAL: alert time one HEENT: EOMI, Sclera non icteric, moist mucosa NECK: Supple, no JVD, trachea midline LUNGS: Clear breath sounds bilaterally. No wheezes HEART: Regular rate and rhythm. Normal S1 and S2, without murmurs ABD: Abdomen soft, nontender. Bowel sounds present EXT: No clubbing cyanosis or edema NEURO: Alert , unable to follow commands Vital Signs (last 8hr) Date Time Temp Pulse Resp B/P (MAP) Pulse Ox O2 Delivery O2 Flow Rate FiO2 03/10/24 19:35 97.0 80 16 114/66 98 Nasal Cannula* 2 28 03/10/24 18:49 97.0 79 17 116/70 98 Nasal Cannula* 2 28 03/10/24 17:40 97.0 79 14 108/65 99 Nasal Cannula* 2 28 03/10/24 17:24 97.3 86 20 104/69 94 Room Air* 0 21 03/10/24 17:13 98.4 86 18 121/85 98 0 LABS: Hematology Labs: Test 03/10/24 17:36 Range/Units White Blood Count 12.1 H 4.8-10.8 K/uL Red Blood Count 3.39 L 4.00-5.50 MIL/uL Hemoglobin 10.5 L 12.0-16.0 g/dL Hematocrit 32.5 L 36-48 % Mean Corpuscular Volume 95.9 79-99 fL Mean Corpuscular Hemoglobin 31.0 27.0-33.0 pg Mean Corpuscular Hemoglobin Concent 32.3 32.0-36.0 g/dL Red Cell Distribution Width 14.7 11.0-15.5 % Platelet Count 293 130-400 K/uL Mean Platelet Volume 11.7 H 7.5-10.5 fL Immature Granulocyte % (Auto) 0.4 0-1 % Neutrophils (%) (Auto) 81.0 H 40.0-77.0 % Lymphocytes (%) (Auto) 10.2 L 21.0-51.0 % Monocytes (%) (Auto) 6.3 3.0-13.0 % Eosinophils (%) (Auto) 1.8 0.0-8.0 % Basophils (%) (Auto) 0.3 0.0-5.0 % Neutrophils # (Auto) 9.8 H 1.8-7.7 K/uL Lymphocytes # (Auto) 1.2 1.0-4.8 K/uL Monocytes # (Auto) 0.8 0.1-1.0 K/uL Eosinophils # (Auto) 0.22 0.00-0.70 K/uL Basophils # (Auto) 0.04 0.00-0.20 K/uL Absolute Immature Granulocyte (auto 0.05 0-1 K/uL Nucleated Red Blood Cells 0.0 0.0-0.19 % Chemistry Labs: Test 03/10/24 17:36 03/10/24 17:31 Range/Units Sodium Level 144 136-145 mmol/L Potassium Level 3.6 3.5-5.1 mmol/L Chloride Level 110 101-111 mmol/L Carbon Dioxide Level 23 21-32 mmol/L Blood Urea Nitrogen 64 H 7-18 mg/dL Creatinine 3.5 H 0.5-1.0 mg/dL Glomerular Filtration Rate Calc 14 >90 mL/min Random Glucose 130 H 70-105 mg/dL Lactic Acid Level 2.0 0.8-2.5 mmol/L Total Calcium 8.2 L 8.5-10.1 mg/dL Ammonia 15 11-32 umol/L Troponin I High Sensitivity 9 4-50 ng/L B-Type Natriuretic Peptide 611 H 0-100 pg/mL Whole Blood Glucose 142 H 70-110 MG/DL DIAGNOSTICS / RADIOLOGY RESULTS: [ ] PLAN NEURO: Minimize central acting medications as possible. Fall Precautions. Well lighted room through the day and minimize interruptions through the night to prevent acute delirium. PULMONARY: Supplemental 02 as needed Titrate Fio2 to keep Spo2 > or = 90% DuoNebs and CPT as needed DuoNebs every 8 hours Repeat ABG stat IS hourly while awake for pulmonary hygiene Out of bed to chair as tolerated VAP Bundle Vent/BIPAP Settings: [ ] Driving pressure: [ ] P Plat: [ ] Static C: [ ] Static R: [ ] P/F Ratio: [ ] CARDIOVASCULAR: Follow hemodynamics. Titrate vasopressor to keep MAP >65 or systolic blood pressure >95mmHg Obtain 2D echo cardiology to read Start Coreg 6.25 mg p.o. b.i.d. and Lasix 20 mg IV every 8 hours Consult patient washer machine DIPS: [ ] LINES: [ ] GI & NUTRITION: Continue nutritional support Keep patient NPO Aspirations precautions Prokinetic agents and laxatives as needed KIDNEYS & ELECTROLYTES: Strict monitoring of intake and output Consult patient flame hardener Daily weights Avoid nephrotoxic agents Monitor electrolytes and replace as needed Goal urine output of 30mL/hr or 0.5mL/kg/hr Urine output: [ ] Fluid Balance: [ ] ENDOCRINE: Maintain blood glucose between 100-180 at all times. Insulin sliding scale for blood glucose management Obtain hemoglobin A1c INFECTIOUS DISEASE: Trend temperature. Dorado-culture if febrile. Status Zosyn 3.375 g IV every 8 hours and doxycycline 100 mg IV every 12 hours Blood culture x2 Micro: [ ] Antibiotics: [ ] HEMATOLOGY & COAGULATION: Monitor H&H. Keep Hgb > 7 Transfuse 1 unit of PRBC for Hgb < 7 Transfuse 1 pack of platelets of platelets < 20, 000 Watch for any signs and symptoms of bleeding SKIN: Pressure ulcer prevention per facility protocol Turn patient every 2 hours Rehab: PT/OT Prophylaxis: GI: [Famotidine ] DVT: [SCDs ] Code Status: Full Resuscitation Disposition: [ Keep in critical care unit] Other: Total patient care time exceeds 60 minutes excluding all procedures. Case was discussed and seen with my supervising physician Dr ROMA Alexander. The above plan was formulated and agreed upon. DENA FAUST JOINT CREASER Mar 10, 2024 21:33
--- NOTE | 2024-03-10 21:39 | NUR ---
NOTIFIED INSPECTOR RAG SORTING NABI ON REPEAT ABG RESULTS, INSTRUCTED TO REPEAT BG AND CALL BACK WITH RESULTS./ALICJA
--- NOTE | 2024-03-10 21:54 | NUR ---
SPOKE WITH EDEL NIEVES TO NOTIFY OF BG RESULTS PER WHEEL BLOCKER GOVIND, NO FURTHER ORDERS GIVEN AT THIS TIME./ALICJA
[2024-03-10] MEDS: carVEDIlol 6.25 MG TABLET PO SCH (22:00)
[2024-03-10] MEDS: ZOSYN 3.375GM +NS 50ML IVPB SCH (22:11)
[2024-03-10] MEDS: Solu-medROL 125MG VIAL IVP ONE (22:11)
[2024-03-10] MEDS: furoSEMIDE 20MG VIAL IV SCH (22:11)
--- NOTE | 2024-03-10 22:20 | NUR ---
REPORT GIVEN TO RENETTA MENDES AT THIS TIME./ALICJA
[2024-03-10 22:22] LABS: MAGNESIUM 1.9 mg/dL (1.80-2.40); THYROID STIMULATING HORMONE 3.15 uIU/mL (0.36-3.74)
[2024-03-10 23:00] VITALS: BP 153/71; PULSE 82; RESP 15; TEMP 97.9
[2024-03-10] MEDS ORDERED: ALBUTEROL 0.083% 2.5 MG/3 ML INH IH PRN (23:00)
[2024-03-10 23:15] VITALS: BP 143/93; PULSE 83; RESP 12
[2024-03-10 23:30] VITALS: BP 145/91; PULSE 109; RESP 13
[2024-03-10] MEDS: IpraTROPium/alBUTERol SULFATE 3 ML SOLUTION IH SCH (23:32)
[2024-03-10 23:35] VITALS: PULSE 83; RESP 16
[2024-03-10 23:36] VITALS: PULSE 83; RESP 14; O2SAT 98
[2024-03-10 23:45] VITALS: BP 145/83; PULSE 103; RESP 12
[2024-03-11] VITALS (31 sets, daily range): BP systolic 131–173; BP diastolic 75–114; PULSE 86–115; RESP 11–38; TEMP 97.8–99.8; O2SAT 96–98
[2024-03-11] MEDS: INSULIN humuLIN R 100 UNIT/ML 3ML SQ SCH
[2024-03-11] MEDS ORDERED: 0.9%NACL 50ML IV SCH
[2024-03-11 03:14] LABS: CREATININE,URINE RANDOM 25.77 mg/dL (30-135)
[2024-03-11 04:34] LABS: BASOPHILS # (AUTO) 0.01 K/uL (0.00-0.20); BASOPHILS % (AUTO) 0.1 % (0.0-5.0); HEMATOCRIT 33.4 % (36-48); IMMATURE GRANULOCYTE ABSOLUTE 0.07 K/uL (0-1); LYMPHOCYTES # (AUTO) 0.7 K/uL (1.0-4.8); LYMPHOCYTES % (AUTO) 5.1 % (21.0-51.0); MEAN CORPUSCULAR HGB CONC 31.7 g/dL (32.0-36.0); MEAN CORPUSCULAR VOLUME 97.7 fL (79-99); MONOCYTES # (AUTO) 0.2 K/uL (0.1-1.0); MONOCYTES % (AUTO) 1.4 % (3.0-13.0); NEUTROPHILS # (AUTO) 13.5 K/uL (1.8-7.7); NEUTROPHILS % (AUTO) 92.9 % (40.0-77.0); PLATELET COUNT (AUTO) 292 K/uL (130-400); RED BLOOD CELL COUNT(AUTO) 3.42 MIL/uL (4.00-5.50); RED CELL DISTRIBUTION WIDTH 14.8 % (11.0-15.5); WHITE BLOOD COUNT (AUTO) 14.5 K/uL (4.8-10.8)
[2024-03-11 04:40] LABS: HEMOGLOBIN A1C 9.7 % (4.0-6.0)
[2024-03-11 04:46] LABS: CREATININE 3.4 mg/dL (0.5-1.0); MAGNESIUM 1.9 mg/dL (1.80-2.40); PHOSPHORUS 7.3 mg/dL (2.5-4.9); POTASSIUM 3.6 mmol/L (3.5-5.1)
[2024-03-11] MEDS ORDERED: CALCIUM GLUC 1GM 1 GM in 0.9%NACL 100ML 100 ML IV SCH (05:00)
--- NOTE | 2024-03-11 08:52 | EKG ---
[facility] Test Date: 2024-03-10 Test Time: 17:37:44 Pat Name: RADHA OWEN Department: [facility] Room: 216 1 Gender: F School Laboratory Technician: [id number] : [id number] Requested By: NOEL DUARTE Order Number: [id number] Reading MD: Mitch Mcgraw Measurements Intervals [place] Rate: 80 P: 33 [place]: 144 QRS: -5 QRSD: 93 T: 30 QT: 399 QTc: 460 Interpretive Statements Sinus rhythm Low voltage, precordial leads Borderline ST elevation, lateral leads Compared to ECG 02/26/2024 12:14:50 Low QRS voltage now present ST (T wave) deviation now present Myocardial infarct finding no longer present Electronically Signed On 03-12-2024 20:58:20 GROVE SUPERINTENDENT by Mitch Mcgraw Please click the below link to view image of tracing.
[2024-03-11] MEDS ORDERED: HEParin 5,000 UNIT VIAL SQ SCH (09:00)
[2024-03-11] MEDS: Solu-medROL 40MG VIAL IVP SCH (09:36)
[2024-03-11] MEDS: FAMOTIDINE 20MG VIAL IV SCH (09:36)
[2024-03-11] MEDS: HEParin 5,000 UNIT VIAL SQ SCH (09:43)
--- NOTE | 2024-03-11 10:13 | NUR ---
DCP Home vs SNF Pt in bed eyes closed. Daughter Lora Mora [phone] at [facility] states pt lives with sister Carmen Hanna in a house for about 9yrs. Pt has cane, walker, and wheelchair daughter Lora is whom takes her to MD appointments. PCP is Geovany Nayak MD anticipates discharge Home vs SNF. Addendum: 03/11/24 at 1031 by MARIA EUGENIA MCCORD RN CM Amended: Links added.
[2024-03-11] MEDS ORDERED: VANCOMYCIN PROTOCOL PER PHARMACY IV SCH (10:30)
[2024-03-11] MEDS ORDERED: MEROPENEM 500 MG in 0.9%NACL 100ML 100 ML IV SCH (10:30)
--- NOTE | 2024-03-11 10:57 | NUR ---
CALLED UNIT TO NOTIFY NURSE PATIENT PENDING CT EXAMS. NURSE WILL CALL CT WHEN READY TO BRING PATIENT TO CT DEPT.
--- NOTE | 2024-03-11 10:59 | PN ---
[facility] PROGRESS NOTE Date Patient Seen: Mar 11, 2024 Time of Visit: 10:48 Supervising Physician: Edmund Davis Primary Care Physician: Geovany Espino Outpatient Specialists: [facility] Inpatient Consults: Edmund Davis PROBLEM LIST: Acute hypoxic respiratory failure Right lower lobe pneumonia- possible HAP Sepsis with organ damage: Renal POA Right pleural effusion Acute metabolic encephalopathy Acute renal failure secondary to ATN on chronic kidney disease Acute on chronic CHF with preserved ejection fraction LVEF 54% Hyperglycemia in the setting of type 2 diabetes mellitus uncontrolled History of diabetes mellitus, hypertension, hyperlipidemia, CHF, CKD, asthma, fem-pop, back surgery INTERVAL HISTORY: 03/11 patient is awake, alert, knows her name and her daughter only. She is diso riented to time, place, and situation. Overall patient is not in acute distress, dry lips, no tachypnea. Vital signs morning with blood pressure 144/89, heart rate is 97, pulse is 97. She remains on 3 L nasal cannula with sats of 98%. Lab this morning with the WBC of 14 up from 12 hemoglobin is 10.6 platelet count is 290. Chemistry with bicarb of 22 creatinine is 3.4 this is do wn from 3.5 yesterday ammonia level is 15, glucose is 163. Chest x-ray this morning with right pleural effusion and infiltrates. Given recent hospitalization, we will up antibiotic coverage to HAP with meropenem and vancomycin. Add levaquin as well. Send MRSA swab and sputum culture. MRI of the brain is pending. No need for repeat Echo. No seizure. We can downgrade to PCCU. REVIEW OF SYSTEMS: 12 point ROS reviewed with patient. Pertinent positives mentioned above. Otherwise negative. PHYSICAL EXAM: GENERAL: alert time one HEENT: EOMI, Sclera non icteric, moist mucosa NECK: Supple, no JVD, trachea midline LUNGS: Coarse crackles on lower lobes. No wheezes HEART: Regular rate and rhythm. Normal S1 and S2, without murmurs ABD: Abdomen soft, nontender. Bowel sounds present EXT: No clubbing cyanosis or edema NEURO: Alert , no unilateral weakness. Vital Signs (last 8hr) Date Time Temp Pulse Resp B/P (MAP) Pulse Ox O2 Delivery O2 Flow Rate FiO2 03/11/24 06:39 16 N/Cannula Low lpm 3.0 32 12/15/24 06:39 102 16 03/11/24 04:00 97.9 97 15 144/89 97 Nasal Cannula 3.0 32 03/11/24 04:00 98 Nasal Cannula* 3 32 03/11/24 03:00 94 13 131/83 96 Nasal Cannula 3.0 32 LABS: Hematology Labs: Test 03/11/24 04:09 Range/Units White Blood Count 14.5 H 4.8-10.8 K/uL Red Blood Count 3.42 L 4.00-5.50 MIL/uL Hemoglobin 10.6 L 12.0-16.0 g/dL Hematocrit 33.4 L 36-48 % Mean Corpuscular Volume 97.7 79-99 fL Mean Corpuscular Hemoglobin 31.0 27.0-33.0 pg Mean Corpuscular Hemoglobin Concent 31.7 L 32.0-36.0 g/dL Red Cell Distribution Width 14.8 11.0-15.5 % Platelet Count 292 130-400 K/uL Mean Platelet Volume 11.5 H 7.5-10.5 fL Immature Granulocyte % (Auto) 0.5 0-1 % Neutrophils (%) (Auto) 92.9 H 40.0-77.0 % Lymphocytes (%) (Auto) 5.1 L 21.0-51.0 % Monocytes (%) (Auto) 1.4 L 3.0-13.0 % Eosinophils (%) (Auto) 0.0 0.0-8.0 % Basophils (%) (Auto) 0.1 0.0-5.0 % Neutrophils # (Auto) 13.5 H 1.8-7.7 K/uL Lymphocytes # (Auto) 0.7 L 1.0-4.8 K/uL Monocytes # (Auto) 0.2 0.1-1.0 K/uL Eosinophils # (Auto) 0.00 0.00-0.70 K/uL Basophils # (Auto) 0.01 0.00-0.20 K/uL Absolute Immature Granulocyte (auto 0.07 0-1 K/uL Nucleated Red Blood Cells 0.0 0.0-0.19 % White Cell Morphology Comment See comments Chemistry Labs: Test 03/11/24 04:09 03/11/24 00:15 03/10/24 21:33 03/10/24 17:36 Range/Units Sodium Level 144 136-145 mmol/L Potassium Level 3.6 3.5-5.1 mmol/L Chloride Level 111 101-111 mmol/L Carbon Dioxide Level 22 21-32 mmol/L Blood Urea Nitrogen 62 H 7-18 mg/dL Creatinine 3.4 H 0.5-1.0 mg/dL Glomerular Filtration Rate Calc 14 >90 mL/min Random Glucose 162 H 70-105 mg/dL Hemoglobin A1c 9.7 H 4.0-6.0 % Estimated Average Glucose (eAG) 232 H 70-126 mg/dL Total Calcium 7.8 L 8.5-10.1 mg/dL Phosphorus Level 7.3 H 2.5-4.9 mg/dL Magnesium Level 1.90 1.80-2.40 mg/dL Whole Blood Glucose 146 H 70-110 MG/DL Lactic Acid Level 1.6 0.8-2.5 mmol/L Thyroid Stimulating Hormone (TSH) 3.15 0.36-3.74 uIU/mL Ammonia 15 11-32 umol/L Troponin I High Sensitivity 9 4-50 ng/L B-Type Natriuretic Peptide 611 H 0-100 pg/mL DIAGNOSTICS / RADIOLOGY RESULTS: [ ] PLAN NEURO: Minimize central acting medications as possible. Fall Precautions. Well lighted room through the day and minimize interruptions through the night to prevent acute delirium. PULMONARY: Supplemental 02 as needed Titrate Fio2 to keep Spo2 > or = 90% DuoNebs and CPT as needed DuoNebs every 8 hours Repeat ABG stat IS hourly while awake for pulmonary hygiene Out of bed to chair as tolerated VAP Bundle CARDIOVASCULAR: Follow hemodynamics. Titrate vasopressor to keep MAP >65 or systolic blood pressure >95mmHg Obtain 2D echo cardiology to read Start Coreg 6.25 mg p.o. b.i.d. and Lasix 20 mg IV every 8 hours Consult patient plate grainer DRIPS: NA LINES: PIV GI & NUTRITION: Continue nutritional support Keep patient NPO Aspirations precautions Prokinetic agents and laxatives as needed KIDNEYS & ELECTROLYTES: Strict monitoring of intake and output Consult patient cook camp Daily weights Avoid nephrotoxic agents Monitor electrolytes and replace as needed Goal urine output of 30mL/hr or 0.5mL/kg/hr ENDOCRINE: Maintain blood glucose between 100-180 at all times. Insulin sliding scale for blood glucose management Obtain hemoglobin A1c INFECTIOUS DISEASE: Trend temperature. Dorado-culture if febrile. Status Zosyn 3.375 g IV every 8 hours and doxycycline 100 mg IV every 12 hours Blood culture x2 Micro: Sputum Blood Urine Antibiotics: Merem Vanc Levaquin HEMATOLOGY & COAGULATION: Monitor H&H. Keep Hgb > 7 Transfuse 1 unit of PRBC for Hgb < 7 Transfuse 1 pack of platelets of platelets < 20, 000 Watch for any signs and symptoms of bleeding SKIN: Pressure ulcer prevention per facility protocol Turn patient every 2 hours Rehab: PT/OT Prophylaxis: GI: [Famotidine ] DVT: [SCDs ] Code Status: Full Resuscitation Disposition: PCCU Other: Total patient care time exceeds 35 minutes excluding all procedures. Case was discussed and seen with my supervising physician Dr ROMA Shaffer. The above plan was formulated and agreed upon. JUAN ANTONIO ALLISON [facility] Mar 11, 2024 10:59
[2024-03-11] MEDS ORDERED: VANCOMYCIN 1.75 GM/250 ML BAG 250 ML IV ONE (11:00)
[2024-03-11] MEDS ORDERED: levoFLOXacin 500 MG/D5W 100 ML 100 ML IV SCH (11:00)
--- NOTE | 2024-03-11 11:10 | PN ---
[facility] PROGRESS NOTE Date of Service: Mar 11, 2024 Time of Service: 11:07 SUBJECTIVE: 03/11 Pt seen at bedside, no acute events overnight. She is currently not needing pressors or intubation however she is somnolent with rigors suggesting severe infection. Will continue with current care, broad spectrum antibiotics and ICU care. Appreciate nephrology recommendations. REVIEW OF SYSTEMS 12 point ROS negative unless noted in HPI PHYSICAL EXAM GENERAL APPEARANCE: The patient is awake, alert, and oriented, in no acute cardiopulmonary distress. NEUROLOGICAL: Cranial nerves II-XII grossly intact. Motor is 5/5 in bilateral upper and lower extremities proximal to distal. No sensory deficits. HEENT: Face is symmetric. Pupils are equal and reactive. Extraocular movements are intact. NECK: Supple. No JVD. No thyromegaly. No submental, submandibular, pre- /postauricular, occipital or supraclavicular lymphadenopathy. CHEST: Normal chest expansion. No Telemetry. LUNGS: Absence of any rales, rhonchi or any wheezing. CARDIOVASCULAR: Regular. S1 and S2 normal. No appreciable rubs, murmurs or gallops. ABDOMEN: Soft, nontender, and nondistended. There is no rebound, voluntary guarding, or rigidity. : Deferred. No [place]. EXTREMITIES: Non-edematous and not cyanotic. No clubbing. Good capillary refill. SKIN: No skin breakdown. Vital Signs (last 8hr) Date Time Temp Pulse Resp B/P (MAP) Pulse Ox O2 Delivery O2 Flow Rate FiO2 03/11/24 06:39 16 N/Cannula Low lpm 3.0 32 03/11/24 06:39 102 16 03/11/24 04:00 97.9 97 15 144/89 97 Nasal Cannula 3.0 32 03/11/24 04:00 98 Nasal Cannula* 3 32 LABS: Laboratory: Test 03/11/24 04:09 03/11/24 02:45 03/11/24 00:15 03/10/24 21:33 Range/Units White Blood Count 14.5 H 4.8-10.8 K/uL Red Blood Count 3.42 L 4.00-5.50 MIL/uL Hemoglobin 10.6 L 12.0-16.0 g/dL Hematocrit 33.4 L 36-48 % Mean Corpuscular Volume 97.7 79-99 fL Mean Corpuscular Hemoglobin 31.0 27.0-33.0 pg Mean Corpuscular Hemoglobin Concent 31.7 L 32.0-36.0 g/dL Red Cell Distribution Width 14.8 11.0-15.5 % Platelet Count 292 130-400 K/uL Mean Platelet Volume 11.5 H 7.5-10.5 fL Immature Granulocyte % (Auto) 0.5 0-1 % Neutrophils (%) (Auto) 92.9 H 40.0-77.0 % Lymphocytes (%) (Auto) 5.1 L 21.0-51.0 % Monocytes (%) (Auto) 1.4 L 3.0-13.0 % Eosinophils (%) (Auto) 0.0 0.0-8.0 % Basophils (%) (Auto) 0.1 0.0-5.0 % Neutrophils # (Auto) 13.5 H 1.8-7.7 K/uL Lymphocytes # (Auto) 0.7 L 1.0-4.8 K/uL Monocytes # (Auto) 0.2 0.1-1.0 K/uL Eosinophils # (Auto) 0.00 0.00-0.70 K/uL Basophils # (Auto) 0.01 0.00-0.20 K/uL Absolute Immature Granulocyte (auto 0.07 0-1 K/uL Nucleated Red Blood Cells 0.0 0.0-0.19 % White Cell Morphology Comment See comments Sodium Level 144 136-145 mmol/L Potassium Level 3.6 3.5-5.1 mmol/L Chloride Level 111 101-111 mmol/L Carbon Dioxide Level 22 21-32 mmol/L Blood Urea Nitrogen 62 H 7-18 mg/dL Creatinine 3.4 H 0.5-1.0 mg/dL Glomerular Filtration Rate Calc 14 >90 mL/min Random Glucose 162 H 70-105 mg/dL Hemoglobin A1c 9.7 H 4.0-6.0 % Estimated Average Glucose (eAG) 232 H 70-126 mg/dL Total Calcium 7.8 L 8.5-10.1 mg/dL Phosphorus Level 7.3 H 2.5-4.9 mg/dL Magnesium Level 1.90 1.80-2.40 mg/dL Urine Random Creatinine 25.77 L 30-135 mg/dL Urine Random Sodium 67 40-220 mmol/l Whole Blood Glucose 146 H 70-110 MG/DL Lactic Acid Level 1.6 0.8-2.5 mmol/L Thyroid Stimulating Hormone (TSH) 3.15 0.36-3.74 uIU/mL Acetaminophen Level 6 L 10-30 mcg/mL Test 03/10/24 21:16 03/10/24 19:00 03/10/24 17:55 03/10/24 17:36 Range/Units Blood Gas Specimen Type Arterial Arterial Blood pH 7.341 L 7.350-7.450 Arterial Blood Partial Pressure CO2 32 32-45 mmHg Arterial Blood Partial Pressure O2 92.5 83.0-108.0 mmHg Arterial Blood HCO3 16.9 L 21.0-28.0 mmol/L Arterial Blood Oxygen Saturation 96.8 94.0-98.0 % Arterial Blood Base Excess -7.6 L -2.0-3.0 mmol/L Blood Gas Temperature 37.0 35.5-37.0 CELSIUS FiO2 28.0 % Blood Gas Specimen Comment RR RN Blood Gas Flow-by 2.00 0.00-15.00 L/min Blood Gas Vent Mode NC ROOM AIR Urine Color LIGHT-YELLOW YELLOW Urine Appearance CLOUDY H CLEAR Urine pH 6.0 5.0-8.0 Urine Specific [place] 1.014 1.001-1.031 Urine Protein 600 H NEGATIVE mg/dL Urine Glucose (UA) 500 H NEGATIVE mg/dL Urine Ketones NEGATIVE NEGATIVE mg/dL Urine Occult Blood NEGATIVE NEGATIVE Urine Nitrate NEGATIVE NEGATIVE Urine Bilirubin NEGATIVE NEGATIVE mg/dL Urine Urobilinogen 0.2 0.2-1.0 mg/dL Urine Leukocyte Esterase NEGATIVE NEGATIVE [place]/uL Urine RBC 0-1 0-1 /HPF Urine WBC 2-5 H 0-1 /HPF Urine Squamous Epithelial Cells RARE 0-2 /HPF Urine Bacteria RARE None Seen /HPF Urine Opiates Screen NEGATIVE NEGATIVE Urine Barbiturates Screen NEGATIVE NEGATIVE Urine Phencyclidine Screen NEGATIVE NEGATIVE Urine Amphetamines Screen NEGATIVE NEGATIVE Urine Benzodiazepines Screen NEGATIVE NEGATIVE Urine Cocaine Screen NEGATIVE NEGATIVE Urine Marijuana (THC) Screen NEGATIVE NEGATIVE Ammonia 15 11-32 umol/L Troponin I High Sensitivity 9 4-50 ng/L B-Type Natriuretic Peptide 611 H 0-100 pg/mL Serum Alcohol < 3 0-10 mg/dL Current Medications Medications (Trade) Dose Ordered Sig/Yefri Route PRN Reason Start Time Stop Time Status Last Admin Dose Admin Acetaminophen (TYLenol 325MG TAB) 650 mg Q6H PRN PO TEMPERATURE GREATER THAN 101.5 03/10/24 23:00 04/09/24 22:59 Albuterol (DUOneb) 1 UDVIAL [id number] IH 03/11/24 00:00 04/10/24 00:00 03/11/24 06:38 1 UDVIAL Albuterol Sulfate (Proventil 0.083% 2.5mg/3ml) 2.5MG Q4H PRN IH SHORTNESS OF BREATH 03/10/24 23:00 04/09/24 22:59 Azithromycin 250 ml @ 250 mls/hr Q24H STAT IVPB 03/10/24 20:16 03/10/24 21:15 DC 03/10/24 20:42 250 MLS/HR Calcium Gluconate 1 gm/Sodium Chloride 100 ml @ 0 mls/hr PROTOCOL IV 03/10/24 22:00 04/09/24 21:59 Calcium Gluconate 1 gm/Sodium Chloride 100 ml @ 0 mls/hr PROTOCOL IV 03/11/24 05:00 03/11/24 04:51 DC Carvedilol (Coreg 6.25MG) 6.25 mg BIDMEALS PO 03/10/24 22:00 04/09/24 21:59 Ceftriaxone Sodium (ROCEphine 1G INJ) 1 gm ONCE STAT IVPB 03/10/24 20:16 03/10/24 20:18 DC 03/10/24 20:42 1 GM Dextrose (D50w) 50 ml AD PRN IV HYPOGLYCEMIA PROTOCOL 03/10/24 21:30 04/09/24 21:29 Doxycycline Hyclate 250 ml @ 125 mls/hr Q12H IV 03/11/24 12:00 03/11/24 10:45 DC Famotidine (Pepcid 20mg Vial) 20 mg DAILY IV 03/11/24 09:00 04/10/24 08:59 03/11/24 09:36 20 MG Furosemide (LASix 20MG VIAL) 20 mg Q8H IV 03/10/24 21:30 04/09/24 21:29 03/11/24 04:37 20 MG Glucagon (Glucagon 1mg Kit) 1 mg AD PRN IM HYPOGLYCEMIA PROTOCOL 03/10/24 21:30 04/09/24 21:29 Heparin Sodium (Porcine) (HEParin 5,000 UNIT VIAL) 5,000 unit BID SQ 03/11/24 09:00 04/10/24 08:59 03/11/24 09:43 5,000 UNIT Heparin Sodium (Porcine) (HEParin 5,000 UNIT VIAL) 5,000 unit BID SQ 03/11/24 09:00 03/10/24 23:12 DC Hydralazine HCl (APRESOLine 20MG INJ) 10 mg Q6H PRN IV For:SBP above 160;DBP above 90 03/10/24 23:00 04/09/24 22:59 Insulin Human Regular (humuLIN R 100 UNIT/ML 3ML) INSULIN SLIDING SCAL... Q6H6 SQ 03/11/24 00:00 04/10/24 00:00 Levofloxacin/ Dextrose 50 ml @ 50 mls/hr Q48H IVPB 03/11/24 11:00 03/21/24 10:59 Levofloxacin/ Dextrose 100 ml @ 100 mls/hr Q24H IV 03/11/24 11:00 03/11/24 10:53 DC Lorazepam (AtiVAN) 1 mg ONCE STAT IVP 03/10/24 17:39 03/10/24 17:40 DC 03/10/24 17:46 1 MG Meropenem (Merrem) 500 mg Q12H IVPB 03/11/24 11:00 03/21/24 10:59 Meropenem 500 mg/ Sodium Chloride 100 ml @ 33.333 mls/ hr Q12H IV 03/11/24 10:30 03/11/24 10:48 DC Methylprednisolone Sodium Succinate (Solu-medROL 40MG) 40 mg BID IVP 03/11/24 09:00 03/11/24 10:45 DC 03/11/24 09:36 40 MG Ondansetron HCl (zoFRAN 4MG INJ) 4 mg Q6H PRN IV NAUSEA/VOMITING 03/10/24 23:00 04/09/24 22:59 Piperacillin Sod/ Tazobactam Sod (Zosyn 3.375gm+NS 50ml) 3.375 gm Q12H IVPB 03/10/24 21:00 03/11/24 10:45 DC 03/11/24 09:36 3.375 GM Sodium Chloride 1,000 ml @ 500 mls/hr Q2H STAT IV 03/10/24 20:04 03/10/24 22:03 DC 03/10/24 20:40 500 MLS/HR Sodium Chloride (NS 50ml) 50 ml AD IV 03/11/24 00:00 03/10/24 21:15 DC Vancomycin HCl (Vancomycin Protocol) 1 each AD IV 03/11/24 10:30 03/25/24 10:29 DIAGNOSTICS / RADIOLOGY: [ ] ASSESSMENT: Metabolic encephalopathy Sepsis without shock Pneumonia Chronic renal failure. Hypokalemia, POA Diabetes mellitus type 2 last A1C 9.7 Hypertension Obesity BMI 31.7 PAD both lower extremities Right pleural effusion with mild interstitial fibrosis PLAN: - Continue ICU - Continue broad spectrum antibiotics, Vancomycin, meropenem, levofloxacin - Continue sliding scale insulin - Continue hypoglycemia protocol - Continue furosemide 20mg TID - Critical care consulted, appreciate recommendations Disposition: pending improvement in clinical status JOEL CASTELLANO MD Mar 11, 2024 11:10
[2024-03-11] MEDS ORDERED: DOXYCYCLINE 100MG+NS 250ML 250 ML IV SCH (12:00)
--- NOTE | 2024-03-11 12:13 | CONS ---
REFERRING PHYSICIAN: Asad Grider MD REASON FOR CONSULTATION: Renal failure. HISTORY OF PRESENT ILLNESS: The patient is a 68-year-old female who was just recently discharged from the hospital. She presented to the hospital with altered mental status. The patient had consecutive visits to the Emergency Room with very similar issues. The patient apparently had been on Neurontin as an outpatient. The patient's laboratory values revealed advanced renal dysfunction, and she is being seen in consultation for all the above. I did discuss with the ICU team, also discussed with the patient's family. PAST MEDICAL HISTORY: Diabetes mellitus, hypertension, hypercholesterolemia, vascular disease, and renal failure. PAST SURGICAL HISTORY: Lower extremity bypass surgery and back surgery. SOCIAL HISTORY: She lives independently. There is no tobacco use. FAMILY HISTORY: There is no renal disease in the family. ALLERGIES: SHE HAS AN ALLERGY TO IODINE. MEDICATIONS: All noted. REVIEW OF SYSTEMS: GENERAL: She is feeling weak and tired. HEENT: No change in vision. No change in hearing. CARDIOVASCULAR: There is no current chest pain or palpitations. PULMONARY: No shortness of breath. GASTROINTESTINAL: Appetite is poor. MUSCULOSKELETAL: As described above. NEUROLOGIC: No history of seizures or focal deficits. PSYCHIATRIC: No history of hallucinations or psychosis. ENDOCRINE: Diabetes mellitus. No history of thyroid disease. HEME: History of anemia. No history of malignancy. PHYSICAL EXAMINATION: VITAL SIGNS: Blood pressure is 144/89, pulse is 90s. GENERAL: Chronically ill female, lying in bed on medical floor. HEENT: Head is atraumatic. Pupils equal, roving to light. Oropharynx is without exudate. Nares clear. NECK: There is no JVP. There is no thyromegaly, no mass. CARDIOVASCULAR: Regular. There is no S3, S4, or gallop. LUNGS: Coarse with equal thoracic movement. ABDOMEN: Soft, nondistended, and nontender. EXTREMITIES: No clubbing, no cyanosis. NEUROLOGICAL: She is awake. She is alert. She is oriented. SKIN: Reveals no rash or nodules. BACK: There is no CVA tenderness, no back deformities. LABORATORY DATA: BUN 62, Creatinine is 3.4. Sodium is 144. Hemoglobin 10, hematocrit 32, white blood cell count is 14,000. Phosphorus is 7.3. IMPRESSION: 1. Advanced renal dysfunction. 2. Encephalopathy. 3. Diabetes mellitus. 4. Hypertension. 5. Anemia. PLAN: The patient does present with advanced renal dysfunction. She has a history of known chronic renal insufficiency. There is no acute need for any form of renal replacement therapy. At this time, the patient is with significant electrolyte abnormalities. We will send off a PTH level for completeness. Once the patient is started on the diet, she can be placed on Renvela for her hyperphosphatemia. We will continue to follow the patient closely. The patient and the family at the bedside, multiple questions were all answered. TID: [id number] RECEIPT: [id number]
[2024-03-11] MEDS: levoFLOXacin 250 MG/D5W 50ML 50 ML IVPB SCH (12:40)
[2024-03-11] MEDS: VANCOMYCIN 1.5 GM/250 ML BAG 250 ML IV ONE (12:40)
[2024-03-11] MEDS: MEROPENEM 500 MG VIAL IVPB SCH (12:40)
--- NOTE | 2024-03-11 12:50 | HMCIMG ---
CT THORACIC SPINE W/O CONTRAST, CT LUMBAR SPINE W/O CONTRAST HISTORY: sepsis, back pain, ruling out device infection TECHNIQUE: CT THORACIC SPINE W/O CONTRAST, CT LUMBAR SPINE W/O CONTRAST. Coronal and sagittal reformats were obtained. CT was performed with one or more of the following dose reduction techniques: Automated exposure control, adjustment of the mA and/or kV according to the patient's size, or use of the iterative reconstruction technique. FINDINGS: Evaluation of the cord and discs is limited with CT. No evidence of compression fracture or dislocation. There is diffuse osteopenia degraded evaluation of the study. Multilevel degenerative changes are noted. Postop changes of posterior fusion are seen at L1-L2 on the right with pedicle screws and fixation bar. Advanced degenerative changes are seen at L2-L3 with disc space loss, endplate osteophytes and endplate sclerosis/lucencies, underlying infection is not excluded. Correlate clinically. Stimulator leads are seen in the lower thoracic spine. Small left and moderate right pleural effusion with bilateral lower lobe consolidation. The aorta is normal in caliber. No acute findings in the visualized abdomen. The visualized lungs are clear. IMPRESSION: There is diffuse osteopenia degraded evaluation of the study. Multilevel degenerative changes are noted. Postop changes of posterior fusion are seen at L1-L2 on the right with pedicle screws and fixation bar. Advanced degenerative changes are seen at L2-L3 with disc space loss, endplate osteophytes and endplate sclerosis/lucencies, underlying infection is not excluded. Correlate clinically. Stimulator leads are seen in the lower thoracic spine. Small left and moderate right pleural effusion with bilateral lower lobe consolidation..
[2024-03-11] MEDS: CALCIUM GLUC 1GM 1 GM in 0.9%NACL 100ML 100 ML IV SCH (15:28)
[2024-03-11] MEDS: hydrALAZine 20MG/ML VIAL IV PRN (16:13)
[2024-03-11] MEDS: ondanSETRON 4MG INJ IV PRN (16:29)
--- NOTE | 2024-03-11 16:42 | PRN ---
Procedure Note [place] EEG Note # Demographics Type of EEG Read: - Routine EEG - without video Patient Location: Inpatient First Name: RADHA Last Name: LEXIE Date of : 1955 Age: 68 Gender: Female Facility: [facility] Time of Initial Page (Central Time): 03/11/2024, 16:30 Time of Return Call (Central Time): 03/11/2024, 16:32 # EEG Interpretation Start Time of EEG Read (Central Time): 03/11/2024, 15:35 Stop Time of EEG Read (Central Time): 03/11/2024, 16:00 Duration: 0h 25m Technical Details: - This study was recorded using the A4 [employer] EEG software - The EEG electrodes were placed using the standard International 10-20 system of electrode placement. An accessory EKG lead was used during the course of this study. Indication: - altered mental status # Description Photic Stimulation: Performed Hyperventilation: NOT performed Phases Captured: - unresponsive Symmetry: symmetric Posterior Dominant Rhythm: absent Predominant Frequencies: The background consists of mild diffuse slowing. EKG: NSR # Abnormalities Stimulation: - photic stimulation does NOT cause abnormalities Epileptiform Abnormalities: - NOT present Focal Slowing: no Seizure: - NOT present # Impression Impression: abnormal 1. Mild Diffuse Slowing # Clinical Correlation Clinical Correlation: 1. Diffuse slowing is non-specific and may be seen in the setting of diffuse cerebral dysfunction; such as toxic/metabolic/infectious encephalopathy or heavily sedating medication use. # Logistics Telemedicine: remote EEG review: EEG reviewed remotely # Demographics First Name: RADHA Last Name: LEXIE Facility: [facility] ZHAO RIVERA MD Mar 11, 2024 16:42
[2024-03-11] MEDS: acetaMINOPHEN 325 MG TAB PO PRN (17:35)
[2024-03-12] VITALS (26 sets, daily range): BP systolic 116–184; BP diastolic 49–105; PULSE 80–106; RESP 10–26; TEMP 97.7–99.6; O2SAT 95–99
[2024-03-12 06:58] LABS: MEAN CORPUSCULAR HEMOGLOBIN 30.9 pg (27.0-33.0); MEAN CORPUSCULAR HGB CONC 31.9 g/dL (32.0-36.0); PLATELET COUNT (AUTO) 259 K/uL (130-400); RED CELL DISTRIBUTION WIDTH 15.2 % (11.0-15.5); WHITE BLOOD COUNT (AUTO) 18.5 K/uL (4.8-10.8)
[2024-03-12 07:11] LABS: CREATININE 3.4 mg/dL (0.5-1.0); MAGNESIUM 1.8 mg/dL (1.80-2.40); POTASSIUM 3.4 mmol/L (3.5-5.1)
[2024-03-12 07:53] LABS: BAND NEUTROPHILS % (MANUAL) 1 % (0-2); LYMPHOCYTES % (MANUAL) 6 % (22-44); MAN.DIFF COMMENT-IMPRESSION MANUAL DIFFERENTIAL; MONOCYTES % (MANUAL) 5 % (2-9); SEGMENTED NEUTROPHILS % 88 % (40-70); TOTAL CELLS COUNTED 100
[2024-03-12 07:54] LABS: PLATELET MORPHOLOGY COMMENT ADEQUATE
[2024-03-12] MEDS: acetaMINOPHEN 325 MG TAB PO PRN (08:15)
[2024-03-12] MEDS: PoTASSium chl 10% ELIXIR 20MEQ 20 MEQ/15 ML UDCUP PO ONE (09:18)
--- NOTE | 2024-03-12 10:00 | PN ---
[facility] PROGRESS NOTE Date Patient Seen: Mar 12, 2024 Time of Visit: 09:55 Supervising Physician: Edmund Davis Primary Care Physician: Geovany Espino Outpatient Specialists: [facility] Inpatient Consults: Edmund Davis PROBLEM LIST: Acute hypoxic respiratory failure L1-L2 right osteophytes- concern for osteomyelitis Right lower lobe pneumonia- possible HAP Sepsis with organ damage: Renal POA Right pleural effusion Acute metabolic encephalopathy- resolving Lower extremity and back pain Acute renal failure secondary to ATN from sepsis on chronic kidney disease Hyperglycemia in the setting of type 2 diabetes mellitus uncontrolled History of diabetes mellitus, hypertension, hyperlipidemia, CHF, CKD, asthma, fem-pop, back surgery INTERVAL HISTORY: 03/11 patient is awake, alert, knows her name and her daughter only. She is disoriented to time, place, and situation. Overall patient is not in acute distress, dry lips, no tachypnea. Vital signs morning with blood pressure 144/89, heart rate is 97, pulse is 97. She remains on 3 L nasal cannula with sats of 98%. Lab this morning with the WBC of 14 up from 12 hemoglobin is 10.6 platelet count is 290. Chemistry with bicarb of 22 creatinine is 3.4 this is down from 3.5 yesterday ammonia level is 15, glucose is 163. Chest x-ray this morning with right pleural effusion and infiltrates. Given recent hospitalization, we will up antibiotic coverage to HAP with meropenem and vancomycin. Add levaquin as well. Send MRSA swab and sputum culture. MRI of the brain is pending. No need for repeat Echo. No seizure. We can downgrade to PCCU. 03/12 patient is awake alert and oriented, not in acute distress. Vital signs this morning with blood pressure 160/68 heart rate is 93 respiratory rate is 15. T-max is 99.7. She remains on room air sat 94%. Lab this morning with creatinine remains the same at 3.4 BUN 68. Urine output is 2.5 L with balance-1.6 L. potassium is 3.4. Give potassium x1. Continue to trend renal function. Patient had BM x1. Lab this AM with WBC up to 18 from 14 hemoglobin is 10. Patient had CT scan of the back yesterday with L1-L2 right pedicle screws and bar, with disc space loss, endplate osteophytes and endplate sclerosis or lucency which concern for infection. Patient is complaining of back pain and thigh pain. We will start patient on neuropathy and pain management. Patient has been seen by Dr. Carrie DALTON, we recommend to obtain consultation to him given worsening leukocytosis, fever, and pain to back. If he is not available, we ll need to transfer her to facility with NSGY availability. Consultation to ID will also be helpful. Discussed with hospitalist Dr. Melgoza and patient/ daughter. Okay to downgrade. On behalf of [facility], we are thankful for your team to let us participate in the care of this patient. We will be available if assistance in pulmonary/ critical care is needed. REVIEW OF SYSTEMS: 12 point ROS reviewed with patient. Pertinent positives mentioned above. Otherwise negative. PHYSICAL EXAM: GENERAL: alert time one HEENT: EOMI, Sclera non icteric, moist mucosa NECK: Supple, no JVD, trachea midline LUNGS: Coarse crackles on lower lobes. No wheezes HEART: Regular rate and rhythm. Normal S1 and S2, without murmurs ABD: Abdomen soft, nontender. Bowel sounds present EXT: No clubbing cyanosis or edema NEURO: Alert , no unilateral weakness. Vital Signs (last 8hr) Date Time Temp Pulse Resp B/P (MAP) Pulse Ox O2 Delivery O2 Flow Rate FiO2 03/12/24 09:00 93 15 163/79 94 Room Air 03/12/24 08:16 164/68 03/12/24 08:00 95 Room Air* 0 21 03/12/24 08:00 97 17 161/94 93 Room Air 03/12/24 07:00 97.9 93 15 164/68 90 Nasal Cannula 2.0 03/12/24 06:38 92 16 03/12/24 06:38 92 16 N/Cannula Low lpm 2.0 28 03/12/24 05:00 89 25 155/82 97 03/12/24 04:00 97 Nasal Cannula* 2 28 03/12/24 04:00 99.5 93 24 145/85 98 Nasal Cannula 2.0 03/12/24 03:00 93 26 156/79 98 03/12/24 02:00 95 19 154/78 97 LABS: Hematology Labs: Test 03/12/24 04:22 03/11/24 04:09 Range/Units White Blood Count 18.5 H 4.8-10.8 K/uL Red Blood Count 3.30 L 4.00-5.50 MIL/uL Hemoglobin 10.2 L 12.0-16.0 g/dL Hematocrit 32.0 L 36-48 % Mean Corpuscular Volume 97.0 79-99 fL Mean Corpuscular Hemoglobin 30.9 27.0-33.0 pg Mean Corpuscular Hemoglobin Concent 31.9 L 32.0-36.0 g/dL Red Cell Distribution Width 15.2 11.0-15.5 % Platelet Count 259 130-400 K/uL Mean Platelet Volume 11.7 H 7.5-10.5 fL Segmented Neutrophils % 88 H 40-70 % Band Neutrophils % 1 0-2 % Lymphocytes % (Manual) 6 L 22-44 % Monocytes % (Manual) 5 2-9 % Nucleated Red Blood Cells 0.0 0.0-0.19 % Differential Comment MANUAL DIFFERENTIAL White Cell Morphology Comment See comments Platelet Morphology Comment ADEQUATE Red Blood Cell Morphology See comments Red Cell Morphology Comment Immature Granulocyte % (Auto) 0.5 0-1 % Neutrophils (%) (Auto) 92.9 H 40.0-77.0 % Lymphocytes (%) (Auto) 5.1 L 21.0-51.0 % Monocytes (%) (Auto) 1.4 L 3.0-13.0 % Eosinophils (%) (Auto) 0.0 0.0-8.0 % Basophils (%) (Auto) 0.1 0.0-5.0 % Neutrophils # (Auto) 13.5 H 1.8-7.7 K/uL Lymphocytes # (Auto) 0.7 L 1.0-4.8 K/uL Monocytes # (Auto) 0.2 0.1-1.0 K/uL Eosinophils # (Auto) 0.00 0.00-0.70 K/uL Basophils # (Auto) 0.01 0.00-0.20 K/uL Absolute Immature Granulocyte (auto 0.07 0-1 K/uL Chemistry Labs: Test 03/12/24 06:43 03/12/24 04:22 03/11/24 04:09 03/10/24 21:33 Range/Units Whole Blood Glucose 120 H 70-110 MG/DL Sodium Level 147 H 136-145 mmol/L Potassium Level 3.4 L 3.5-5.1 mmol/L Chloride Level 113 H 101-111 mmol/L Carbon Dioxide Level 23 21-32 mmol/L Blood Urea Nitrogen 68 H 7-18 mg/dL Creatinine 3.4 H 0.5-1.0 mg/dL Glomerular Filtration Rate Calc 14 >90 mL/min Random Glucose 117 H 70-105 mg/dL Total Calcium 7.7 L 8.5-10.1 mg/dL Magnesium Level 1.80 1.80-2.40 mg/dL Procalcitonin < 0.05 L 0.05-0.5 ng/mL Hemoglobin A1c 9.7 H 4.0-6.0 % Estimated Average Glucose (eAG) 232 H 70-126 mg/dL Phosphorus Level 7.3 H 2.5-4.9 mg/dL Lactic Acid Level 1.6 0.8-2.5 mmol/L Thyroid Stimulating Hormone (TSH) 3.15 0.36-3.74 uIU/mL Test 03/10/24 17:36 Range/Units Ammonia 15 11-32 umol/L Troponin I High Sensitivity 9 4-50 ng/L B-Type Natriuretic Peptide 611 H 0-100 pg/mL DIAGNOSTICS / RADIOLOGY RESULTS: [ ] PLAN NEURO: Minimize central acting medications as possible. Fall Precautions. Well lighted room through the day and minimize interruptions through the night to prevent acute delirium. PULMONARY: Supplemental 02 as needed Titrate Fio2 to keep Spo2 > or = 90% DuoNebs and CPT as needed DuoNebs every 8 hours Repeat ABG stat IS hourly while awake for pulmonary hygiene Out of bed to chair as tolerated VAP Bundle CARDIOVASCULAR: Follow hemodynamics. Titrate vasopressor to keep MAP >65 or systolic blood pressure >95mmHg Obtain 2D echo cardiology to read Start Coreg 6.25 mg p.o. b.i.d. 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 Insulin sliding scale for blood glucose management Obtain hemoglobin A1c INFECTIOUS DISEASE: Trend temperature. [place]-culture if febrile. Status Zosyn 3.375 g IV every 8 hours and doxycycline 100 mg IV every 12 hours Blood culture x2 Micro: Sputum Blood Urine Antibiotics: Merem Vanc Levaquin HEMATOLOGY & COAGULATION: Monitor H&H. Keep Hgb > 7 Transfuse 1 unit of PRBC for Hgb < 7 Transfuse 1 pack of platelets of platelets < 20, 000 Watch for any signs and symptoms of bleeding SKIN: Pressure ulcer prevention per facility protocol Turn patient every 2 hours Rehab: PT/OT Prophylaxis: GI: [Famotidine ] DVT: [SCDs ] Code Status: Full Resuscitation Disposition: PCCU Other: Total patient care time exceeds 35 minutes excluding all procedures. Case was discussed and seen with my supervising physician Dr ROMA Shaffer. The above plan was formulated and agreed upon. JUAN ANTONIO [facility] Mar 12, 2024 09:59
[2024-03-12] MEDS: GABApentin 100 MG CAPSULE PO SCH (10:11)
[2024-03-12] MEDS: hydroMORPHone 1 MG INJ IVP PRN (10:43)
--- NOTE | 2024-03-12 10:47 | NUR ---
Dr. Melgoza will consult neurosurgeon
--- NOTE | 2024-03-12 10:54 | PN ---
[facility] PROGRESS NOTE Date of Service: Mar 12, 2024 Time of Service: 10:52 SUBJECTIVE: 03/11 Pt seen at bedside, no acute events overnight. She is currently not needing pressors or intubation however she is somnolent with rigors suggesting severe infection. Will continue with current care, broad spectrum antibiotics and ICU care. Appreciate nephrology recommendations. 03/12 the patient has been seen and examined earlier this morning during my rounding, no acute events overnight, she is alert oriented x3, hemodynamically stable, saturating normal on air. Results of MRI thoracic and lumbar spine reviewed, discussed with the patient, questions answered. WBC today trending up. REVIEW OF SYSTEMS 12 point ROS negative unless noted in HPI PHYSICAL EXAM GENERAL APPEARANCE: The patient is awake, alert, and oriented, in no acute cardiopulmonary distress. NEUROLOGICAL: Cranial nerves II-XII grossly intact. Motor is 5/5 in bilateral upper and lower extremities proximal to distal. No sensory deficits. HEENT: Face is symmetric. Pupils are equal and reactive. Extraocular movements are intact. NECK: Supple. No JVD. No thyromegaly. No submental, submandibular, pre- /postauricular, occipital or supraclavicular lymphadenopathy. CHEST: Normal chest expansion. No Telemetry. LUNGS: Absence of any rales, rhonchi or any wheezing. CARDIOVASCULAR: Regular. S1 and S2 normal. No appreciable rubs, murmurs or gallops. ABDOMEN: Soft, nontender, and nondistended. There is no rebound, voluntary guarding, or rigidity. : Deferred. No [place]. EXTREMITIES: Non-edematous and not cyanotic. No clubbing. Good capillary refill. SKIN: No skin breakdown. Vital Signs (last 8hr) Date Time Temp Pulse Resp B/P (MAP) Pulse Ox O2 Delivery O2 Flow Rate FiO2 03/12/24 09:00 93 15 163/79 94 Room Air 03/12/24 08:16 164/68 03/12/24 08:00 95 Room Air* 0 21 03/12/24 08:00 97 17 161/94 93 Room Air 03/12/24 07:00 97.9 93 15 164/68 90 Nasal Cannula 2.0 03/12/24 06:38 92 16 03/12/24 06:38 92 16 N/Cannula Low lpm 2.0 28 03/12/24 05:00 89 25 155/82 97 03/12/24 04:00 97 Nasal Cannula* 2 28 03/12/24 04:00 99.5 93 24 145/85 98 Nasal Cannula 2.0 03/12/24 03:00 93 26 156/79 98 LABS: Laboratory: Test 03/12/24 06:43 03/12/24 04:22 03/11/24 04:09 03/11/24 02:45 Range/Units Whole Blood Glucose 120 H 70-110 MG/DL White Blood Count 18.5 H 4.8-10.8 K/uL Red Blood Count 3.30 L 4.00-5.50 MIL/uL Hemoglobin 10.2 L 12.0-16.0 g/dL Hematocrit 32.0 L 36-48 % Mean Corpuscular Volume 97.0 79-99 fL Mean Corpuscular Hemoglobin 30.9 27.0-33.0 pg Mean Corpuscular Hemoglobin Concent 31.9 L 32.0-36.0 g/dL Red Cell Distribution Width 15.2 11.0-15.5 % Platelet Count 259 130-400 K/uL Mean Platelet Volume 11.7 H 7.5-10.5 fL Segmented Neutrophils % 88 H 40-70 % Band Neutrophils % 1 0-2 % Lymphocytes % (Manual) 6 L 22-44 % Monocytes % (Manual) 5 2-9 % Nucleated Red Blood Cells 0.0 0.0-0.19 % Differential Comment MANUAL DIFFERENTIAL White Cell Morphology Comment See comments Platelet Morphology Comment ADEQUATE Red Blood Cell Morphology See comments Red Cell Morphology Comment Sodium Level 147 H 136-145 mmol/L Potassium Level 3.4 L 3.5-5.1 mmol/L Chloride Level 113 H 101-111 mmol/L Carbon Dioxide Level 23 21-32 mmol/L Blood Urea Nitrogen 68 H 7-18 mg/dL Creatinine 3.4 H 0.5-1.0 mg/dL Glomerular Filtration Rate Calc 14 >90 mL/min Random Glucose 117 H 70-105 mg/dL Total Calcium 7.7 L 8.5-10.1 mg/dL Magnesium Level 1.80 1.80-2.40 mg/dL Procalcitonin < 0.05 L 0.05-0.5 ng/mL Immature Granulocyte % (Auto) 0.5 0-1 % Neutrophils (%) (Auto) 92.9 H 40.0-77.0 % Lymphocytes (%) (Auto) 5.1 L 21.0-51.0 % Monocytes (%) (Auto) 1.4 L 3.0-13.0 % Eosinophils (%) (Auto) 0.0 0.0-8.0 % Basophils (%) (Auto) 0.1 0.0-5.0 % Neutrophils # (Auto) 13.5 H 1.8-7.7 K/uL Lymphocytes # (Auto) 0.7 L 1.0-4.8 K/uL Monocytes # (Auto) 0.2 0.1-1.0 K/uL Eosinophils # (Auto) 0.00 0.00-0.70 K/uL Basophils # (Auto) 0.01 0.00-0.20 K/uL Absolute Immature Granulocyte (auto 0.07 0-1 K/uL Hemoglobin A1c 9.7 H 4.0-6.0 % Estimated Average Glucose (eAG) 232 H 70-126 mg/dL Phosphorus Level 7.3 H 2.5-4.9 mg/dL Urine Random Creatinine 25.77 L 30-135 mg/dL Urine Random Sodium 67 40-220 mmol/l Test 03/10/24 21:33 03/10/24 21:16 03/10/24 19:00 03/10/24 17:55 Range/Units Lactic Acid Level 1.6 0.8-2.5 mmol/L Thyroid Stimulating Hormone (TSH) 3.15 0.36-3.74 uIU/mL Acetaminophen Level 6 L 10-30 mcg/mL Blood Gas Specimen Type Arterial Arterial Blood pH 7.341 L 7.350-7.450 Arterial Blood Partial Pressure CO2 32 32-45 mmHg Arterial Blood Partial Pressure O2 92.5 83.0-108.0 mmHg Arterial Blood HCO3 16.9 L 21.0-28.0 mmol/L Arterial Blood Oxygen Saturation 96.8 94.0-98.0 % Arterial Blood Base Excess -7.6 L -2.0-3.0 mmol/L Blood Gas Temperature 37.0 35.5-37.0 CELSIUS FiO2 28.0 % Blood Gas Specimen Comment RR RN Blood Gas Flow-by 2.00 0.00-15.00 L/min Blood Gas Vent Mode NC ROOM AIR Urine Color LIGHT-YELLOW YELLOW Urine Appearance CLOUDY H CLEAR Urine pH 6.0 5.0-8.0 Urine Specific [place] 1.014 1.001-1.031 Urine Protein 600 H NEGATIVE mg/dL Urine Glucose (UA) 500 H NEGATIVE mg/dL Urine Ketones NEGATIVE NEGATIVE mg/dL Urine Occult Blood NEGATIVE NEGATIVE Urine Nitrate NEGATIVE NEGATIVE Urine Bilirubin NEGATIVE NEGATIVE mg/dL Urine Urobilinogen 0.2 0.2-1.0 mg/dL Urine Leukocyte Esterase NEGATIVE NEGATIVE [place]/uL Urine RBC 0-1 0-1 /HPF Urine WBC 2-5 H 0-1 /HPF Urine Squamous Epithelial Cells RARE 0-2 /HPF Urine Bacteria RARE None Seen /HPF Urine Osmolality 328 50-1200 mOsm/kg Urine Opiates Screen NEGATIVE NEGATIVE Urine Barbiturates Screen NEGATIVE NEGATIVE Urine Phencyclidine Screen NEGATIVE NEGATIVE Urine Amphetamines Screen NEGATIVE NEGATIVE Urine Benzodiazepines Screen NEGATIVE NEGATIVE Urine Cocaine Screen NEGATIVE NEGATIVE Urine Marijuana (THC) Screen NEGATIVE NEGATIVE Test 03/10/24 17:36 Range/Units Ammonia 15 11-32 umol/L Troponin I High Sensitivity 9 4-50 ng/L B-Type Natriuretic Peptide 611 H 0-100 pg/mL Serum Alcohol < 3 0-10 mg/dL Current Medications Medications (Trade) Dose Ordered Sig/Yefri Route PRN Reason Start Time Stop Time Status Last Admin Dose Admin Acetaminophen (TYLenol 325MG TAB) 650 mg Q6H PRN PO TEMPERATURE GREATER THAN 101.5 03/10/24 23:00 03/11/24 17:42 DC 03/11/24 17:35 650 MG Acetaminophen (TYLenol 325MG TAB) 650 mg Q6H PRN PO MILD PAIN (1-3) 03/11/24 17:30 04/10/24 17:29 03/12/24 08:15 650 MG Albuterol (DUOneb) 1 UDVIAL B5SILAY IH 03/11/24 00:00 04/10/24 00:00 03/12/24 06:34 1 UDVIAL Albuterol Sulfate (Proventil 0.083% 2.5mg/3ml) 2.5MG Q4H PRN IH SHORTNESS OF BREATH 03/10/24 23:00 04/09/24 22:59 Azithromycin 250 ml @ 250 mls/hr Q24H STAT IVPB 03/10/24 20:16 03/10/24 21:15 DC 03/10/24 20:42 250 MLS/HR Calcium Gluconate 1 gm/Sodium Chloride 100 ml @ 0 mls/hr PROTOCOL IV 03/10/24 22:00 04/09/24 21:59 Calcium Gluconate 1 gm/Sodium Chloride 100 ml @ 0 mls/hr PROTOCOL IV 03/11/24 05:00 03/11/24 04:51 DC Carvedilol (Coreg 6.25MG) 6.25 mg BIDMEALS PO 03/10/24 22:00 04/09/24 21:59 03/12/24 08:16 6.25 MG Ceftriaxone Sodium (ROCEphine 1G INJ) 1 gm ONCE STAT IVPB 03/10/24 20:16 03/10/24 20:18 DC 03/10/24 20:42 1 GM Dextrose (D50w) 50 ml AD PRN IV HYPOGLYCEMIA PROTOCOL 03/10/24 21:30 04/09/24 21:29 Doxycycline Hyclate 250 ml @ 125 mls/hr Q12H IV 03/11/24 12:00 03/11/24 10:45 DC Famotidine (Pepcid 20mg Vial) 20 mg DAILY IV 03/11/24 09:00 04/10/24 08:59 03/12/24 08:16 20 MG Furosemide (LASix 20MG VIAL) 20 mg Q8H IV 03/10/24 21:30 04/09/24 21:29 03/12/24 05:44 20 MG Gabapentin (NEURontin 100 mg CAP) 100 mg TID PO 03/12/24 10:00 04/11/24 09:59 03/12/24 10:11 100 MG Glucagon (Glucagon 1mg Kit) 1 mg AD PRN IM HYPOGLYCEMIA PROTOCOL 03/10/24 21:30 04/09/24 21:29 Heparin Sodium (Porcine) (HEParin 5,000 UNIT VIAL) 5,000 unit BID SQ 03/11/24 09:00 04/10/24 08:59 03/12/24 08:18 5,000 UNIT Heparin Sodium (Porcine) (HEParin 5,000 UNIT VIAL) 5,000 unit BID SQ 03/11/24 09:00 03/10/24 23:12 DC Hydralazine HCl (APRESOLine 20MG INJ) 10 mg Q6H PRN IV For:SBP above 160;DBP above 90 03/10/24 23:00 04/09/24 22:59 03/12/24 10:12 10 MG Hydromorphone HCl (DiLAUDid 1MG INJ) 1 mg Q4H PRN IVP SEVERE PAIN (7-10) 03/12/24 10:00 03/17/24 09:59 03/12/24 10:43 1 MG Insulin Human Regular (humuLIN R 100 UNIT/ML 3ML) INSULIN SLIDING SCAL... ACHS SQ 03/12/24 11:30 04/11/24 11:29 Insulin Human Regular (humuLIN R 100 UNIT/ML 3ML) INSULIN SLIDING SCAL... Q6H6 SQ 03/11/24 00:00 03/12/24 10:40 DC 03/11/24 18:22 3 UNIT Levofloxacin/ Dextrose 50 ml @ 50 mls/hr Q48H IVPB 03/11/24 11:00 03/21/24 10:59 03/11/24 12:40 50 MLS/HR Levofloxacin/ Dextrose 100 ml @ 100 mls/hr Q24H IV 03/11/24 11:00 03/11/24 10:53 DC Lorazepam (AtiVAN) 1 mg ONCE STAT IVP 03/10/24 17:39 03/10/24 17:40 DC 03/10/24 17:46 1 MG Meropenem (Merrem) 500 mg Q12H IVPB 03/11/24 11:00 03/21/24 10:59 03/12/24 10:11 500 MG Meropenem 500 mg/ Sodium Chloride 100 ml @ 33.333 mls/ hr Q12H IV 03/11/24 10:30 03/11/24 10:48 DC Methylprednisolone Sodium Succinate (Solu-medROL 40MG) 40 mg BID IVP 03/11/24 09:00 03/11/24 10:45 DC 03/11/24 09:36 40 MG Ondansetron HCl (zoFRAN 4MG INJ) 4 mg Q6H PRN IV NAUSEA/VOMITING 03/10/24 23:00 04/09/24 22:59 03/11/24 16:29 4 MG Piperacillin Sod/ Tazobactam Sod (Zosyn 3.375gm+NS 50ml) 3.375 gm Q12H IVPB 03/10/24 21:00 03/11/24 10:45 DC 03/11/24 09:36 3.375 GM Sodium Chloride 1,000 ml @ 500 mls/hr Q2H STAT IV 03/10/24 20:04 03/10/24 22:03 DC 03/10/24 20:40 500 MLS/HR Sodium Chloride (NS 50ml) 50 ml AD IV 03/11/24 00:00 03/10/24 21:15 DC Vancomycin HCl 250 ml @ 125 mls/hr Q48H IV 03/13/24 11:30 03/23/24 11:29 Vancomycin HCl (Vancomycin Protocol) 1 each AD IV 03/11/24 10:30 03/25/24 10:29 DIAGNOSTICS / RADIOLOGY: [ ] CT THORACIC SPINE W/O CONTRAST, CT LUMBAR SPINE W/O CONTRAST HISTORY: sepsis, back pain, ruling out device infection TECHNIQUE: CT THORACIC SPINE W/O CONTRAST, CT LUMBAR SPINE W/O CONTRAST. Coronal and sagittal reformats were obtained. CT was performed with one or more of the following dose reduction techniques: Automated exposure control, adjustment of the mA and/or kV according to the patient's size, or use of the iterative reconstruction technique. FINDINGS: Evaluation of the cord and discs is limited with CT. No evidence of compression fracture or dislocation. There is diffuse osteopenia degraded evaluation of the study. Multilevel degenerative changes are noted. Postop changes of posterior fusion are seen at L1-L2 on the right with pedicle screws and fixation bar. Advanced degenerative changes are seen at L2-L3 with disc space loss, endplate osteophytes and endplate sclerosis/lucencies, underlying infection is not excluded. Correlate clinically. Stimulator leads are seen in the lower thoracic spine. Small left and moderate right pleural effusion with bilateral lower lobe consolidation. The aorta is normal in caliber. No acute findings in the visualized abdomen. The visualized lungs are clear. IMPRESSION: There is diffuse osteopenia degraded evaluation of the study. Multilevel degenerative changes are noted. Postop changes of posterior fusion are seen at L1-L2 on the right with pedicle screws and fixation bar. Advanced degenerative changes are seen at L2-L3 with disc space loss, endplate osteophytes and endplate sclerosis/lucencies, underlying infection is not excluded. Correlate clinically. Stimulator leads are seen in the lower thoracic spine. Small left and moderate right pleural effusion with bilateral lower lobe consolidation.. ASSESSMENT: Metabolic encephalopathy Sepsis without shock Pneumonia Chronic renal failure. Hypokalemia, POA Diabetes mellitus type 2 last A1C 9.7 Hypertension Obesity BMI 31.7 PAD both lower extremities Right pleural effusion with mild interstitial fibrosis Possible infectious process involving L1-L2. PLAN: - patient to be downgraded to medical floor - Continue broad spectrum antibiotics, Vancomycin, meropenem, levofloxacin - Continue sliding scale insulin - Continue hypoglycemia protocol - Continue furosemide 20mg TID - Critical care consulted, appreciate recommendations Disposition: Results of CT thoracic and lumbar spine reviewed, possible infectious process at L1-L2, we will continue broad-spectrum antibiotics, infectious disease consultation requested, we will follow input and re commendations. We will discuss also with the neurosurgery. Plan of action discussed with the patient, all questions answered, agreed and understood the information provided. Total time spent greater than 30 minutes. DEYANIRA DAAMSON MD Mar 12, 2024 10:54
[2024-03-12] MEDS: INSULIN humuLIN R 100 UNIT/ML 3ML SQ SCH (11:13)
--- NOTE | 2024-03-12 13:44 | PN ---
NEPHROLOGY PROGRESS NOTE Date/Time Patient Seen: Mar 12, 2024 SUBJECTIVE: This is a 68 year old female with a past medical history of congestive heart failure history, hypertension, hyperlipidemia and chronic low back pain. She presented to the emergency room with complaints of altered mental status. Patient has a recent hospital admission for similar reason and was discharged on 03/07/2024 Blood culture has been negative times 24 hours. She continues on broad-spectrum antibiotics, including vancomycin. She was noted to have elevated BUN/creatinine. We are consulted for renal failure. Renal function has remained stable Electrolytes are stable. She was seen in the ICU Condition is critical and guarded REVIEW OF SYSTEMS: GENERAL: Positive for generalized weakness NEUROLOGIC: Negative for any blurry vision, blind spots, double vision, facial asymmetry, dysphagia, dysarthria, hemiparesis, hemisensory deficits, vertigo, ataxia. HEENT: Negative for any head trauma, neck trauma, neck stiffness, photophobia, phonophobia, sinusitis, rhinitis. CARDIAC: Negative for any chest pain, dyspnea on exertion, paroxysmal nocturnal dyspnea, peripheral edema. PULMONARY: Negative for any shortness of breath, wheezing, COPD, or TB exposure. GASTROINTESTINAL: Negative for any abdominal pain, nausea, vomiting, bright red blood per rectum, melena. GENITOURINARY: Negative for any dysuria, hematuria, incontinence. INTEGUMENTARY: Negative for any rashes, cuts, insect bites. RHEUMATOLOGIC: Negative for any joint pains, photosensitive rashes, history of vasculitis or kidney problems. HEMATOLOGIC: Negative for any abnormal bruising, frequent infections or bleeding. Vital Signs (last 8hr) Date Time Temp Pulse Resp B/P (MAP) Pulse Ox O2 Delivery O2 Flow Rate FiO2 03/12/24 12:03 82 16 03/12/24 12:00 98.4 99 23 158/85 94 Room Air 03/12/24 11:00 83 10 170/86 93 Room Air 03/12/24 10:00 82 12 174/89 96 Room Air 03/12/24 09:00 93 15 163/79 94 Room Air 03/12/24 08:16 164/68 03/12/24 08:00 95 Room Air* 0 21 03/12/24 08:00 97 17 161/94 93 Room Air 03/12/24 07:00 97.9 93 15 164/68 90 Nasal Cannula 2.0 03/12/24 06:38 92 16 03/12/24 06:38 92 16 N/Cannula Low lpm 2.0 28 PHYSICAL EXAM: GENERAL: Alert and oriented x 3. No acute distress. Well-nourished. EYES: EOMI. Anicteric. HENT: Moist mucous membranes. No scleral icterus. No cervical lymphadenopathy. LUNGS: Clear to auscultation bilaterally. No accessory muscle use. CARDIOVASCULAR: Regular rate and rhythm. No murmur. No JVD. ABDOMEN: Soft, non-tender and non-distended. No palpable masses. EXTREMITIES: No edema. Non-tender. SKIN: No rashes or lesions. Warm. NEUROLOGIC: No focal neurological deficits. CN II-XII grossly intact, but not individually tested. PSYCHIATRIC: Cooperative. Appropriate mood and affect. Current Medications Medications (Trade) Dose Ordered Sig/Yefri Route PRN Reason Start Time Stop Time Status Last Admin Dose Admin Acetaminophen (TYLenol 325MG TAB) 650 mg Q6H PRN PO TEMPERATURE GREATER THAN 101.5 03/10/24 23:00 03/11/24 17:42 DC 03/11/24 17:35 650 MG Acetaminophen (TYLenol 325MG TAB) 650 mg Q6H PRN PO MILD PAIN (1-3) 03/11/24 17:30 04/10/24 17:29 03/12/24 08:15 650 MG Albuterol (DUOneb) 1 UDVIAL [id number] IH 03/11/24 00:00 04/10/24 00:00 03/12/24 12:02 1 UDVIAL Albuterol Sulfate (Proventil 0.083% 2.5mg/3ml) 2.5MG Q4H PRN IH SHORTNESS OF BREATH 03/10/24 23:00 04/09/24 22:59 Azithromycin 250 ml @ 250 mls/hr Q24H STAT IVPB 03/10/24 20:16 03/10/24 21:15 DC 03/10/24 20:42 250 MLS/HR Calcium Gluconate 1 gm/Sodium Chloride 100 ml @ 0 mls/hr PROTOCOL IV 03/10/24 22:00 04/09/24 21:59 Calcium Gluconate 1 gm/Sodium Chloride 100 ml @ 0 mls/hr PROTOCOL IV 03/11/24 05:00 03/11/24 04:51 DC Carvedilol (Coreg 6.25MG) 6.25 mg BIDMEALS PO 03/10/24 22:00 04/09/24 21:59 03/12/24 08:16 6.25 MG Ceftriaxone Sodium (ROCEphine 1G INJ) 1 gm ONCE STAT IVPB 03/10/24 20:16 03/10/24 20:18 DC 03/10/24 20:42 1 GM Dextrose (D50w) 50 ml AD PRN IV HYPOGLYCEMIA PROTOCOL 03/10/24 21:30 04/09/24 21:29 Doxycycline Hyclate 250 ml @ 125 mls/hr Q12H IV 03/11/24 12:00 03/11/24 10:45 DC Famotidine (Pepcid 20mg Vial) 20 mg DAILY IV 03/11/24 09:00 04/10/24 08:59 03/12/24 08:16 20 MG Furosemide (LASix 20MG VIAL) 20 mg Q8H IV 03/10/24 21:30 04/09/24 21:29 03/12/24 05:44 20 MG Gabapentin (NEURontin 100 mg CAP) 100 mg TID PO 03/12/24 10:00 04/11/24 09:59 03/12/24 10:11 100 MG Glucagon (Glucagon 1mg Kit) 1 mg AD PRN IM HYPOGLYCEMIA PROTOCOL 03/10/24 21:30 04/09/24 21:29 Heparin Sodium (Porcine) (HEParin 5,000 UNIT VIAL) 5,000 unit BID SQ 03/11/24 09:00 04/10/24 08:59 03/12/24 08:18 5,000 UNIT Heparin Sodium (Porcine) (HEParin 5,000 UNIT VIAL) 5,000 unit BID SQ 03/11/24 09:00 03/10/24 23:12 DC Hydralazine HCl (APRESOLine 20MG INJ) 10 mg Q6H PRN IV For:SBP above 160;DBP above 90 03/10/24 23:00 04/09/24 22:59 03/12/24 10:12 10 MG Hydromorphone HCl (DiLAUDid 1MG INJ) 1 mg Q4H PRN IVP SEVERE PAIN (7-10) 03/12/24 10:00 03/17/24 09:59 03/12/24 10:43 1 MG Insulin Human Regular (humuLIN R 100 UNIT/ML 3ML) INSULIN SLIDING SCAL... ACHS SQ 03/12/24 11:30 04/11/24 11:29 Insulin Human Regular (humuLIN R 100 UNIT/ML 3ML) INSULIN SLIDING SCAL... Q6H6 SQ 03/11/24 00:00 03/12/24 10:40 DC 03/11/24 18:22 3 UNIT Levofloxacin/ Dextrose 50 ml @ 50 mls/hr Q48H IVPB 03/11/24 11:00 03/21/24 10:59 03/11/24 12:40 50 MLS/HR Levofloxacin/ Dextrose 100 ml @ 100 mls/hr Q24H IV 03/11/24 11:00 03/11/24 10:53 DC Lorazepam (AtiVAN) 1 mg ONCE STAT IVP 03/10/24 17:39 03/10/24 17:40 DC 03/10/24 17:46 1 MG Meropenem (Merrem) 500 mg Q12H IVPB 03/11/24 11:00 03/21/24 10:59 03/12/24 10:11 500 MG Meropenem 500 mg/ Sodium Chloride 100 ml @ 33.333 mls/ hr Q12H IV 03/11/24 10:30 03/11/24 10:48 DC Methylprednisolone Sodium Succinate (Solu-medROL 40MG) 40 mg BID IVP 03/11/24 09:00 03/11/24 10:45 DC 03/11/24 09:36 40 MG Ondansetron HCl (zoFRAN 4MG INJ) 4 mg Q6H PRN IV NAUSEA/VOMITING 03/10/24 23:00 04/09/24 22:59 03/12/24 11:55 4 MG Piperacillin Sod/ Tazobactam Sod (Zosyn 3.375gm+NS 50ml) 3.375 gm Q12H IVPB 03/10/24 21:00 03/11/24 10:45 DC 03/11/24 09:36 3.375 GM Sodium Chloride 1,000 ml @ 500 mls/hr Q2H STAT IV 03/10/24 20:04 03/10/24 22:03 DC 03/10/24 20:40 500 MLS/HR Sodium Chloride (NS 50ml) 50 ml AD IV 03/11/24 00:00 03/10/24 21:15 DC Vancomycin HCl 250 ml @ 125 mls/hr Q48H IV 03/13/24 11:30 03/23/24 11:29 Vancomycin HCl (Vancomycin Protocol) 1 each AD IV 03/11/24 10:30 03/25/24 10:29 LABORATORY: [ ] Hematology Labs: Test 03/12/24 04:22 03/11/24 04:09 Range/Units White Blood Count 18.5 H 4.8-10.8 K/uL Red Blood Count 3.30 L 4.00-5.50 MIL/uL Hemoglobin 10.2 L 12.0-16.0 g/dL Hematocrit 32.0 L 36-48 % Mean Corpuscular Volume 97.0 79-99 fL Mean Corpuscular Hemoglobin 30.9 27.0-33.0 pg Mean Corpuscular Hemoglobin Concent 31.9 L 32.0-36.0 g/dL Red Cell Distribution Width 15.2 11.0-15.5 % Platelet Count 259 130-400 K/uL Mean Platelet Volume 11.7 H 7.5-10.5 fL Segmented Neutrophils % 88 H 40-70 % Band Neutrophils % 1 0-2 % Lymphocytes % (Manual) 6 L 22-44 % Monocytes % (Manual) 5 2-9 % Nucleated Red Blood Cells 0.0 0.0-0.19 % Differential Comment MANUAL DIFFERENTIAL White Cell Morphology Comment See comments Platelet Morphology Comment ADEQUATE Red Blood Cell Morphology See comments Red Cell Morphology Comment Immature Granulocyte % (Auto) 0.5 0-1 % Neutrophils (%) (Auto) 92.9 H 40.0-77.0 % Lymphocytes (%) (Auto) 5.1 L 21.0-51.0 % Monocytes (%) (Auto) 1.4 L 3.0-13.0 % Eosinophils (%) (Auto) 0.0 0.0-8.0 % Basophils (%) (Auto) 0.1 0.0-5.0 % Neutrophils # (Auto) 13.5 H 1.8-7.7 K/uL Lymphocytes # (Auto) 0.7 L 1.0-4.8 K/uL Monocytes # (Auto) 0.2 0.1-1.0 K/uL Eosinophils # (Auto) 0.00 0.00-0.70 K/uL Basophils # (Auto) 0.01 0.00-0.20 K/uL Absolute Immature Granulocyte (auto 0.07 0-1 K/uL Chemistry Labs: Test 03/12/24 11:12 03/12/24 04:22 03/11/24 04:09 03/10/24 21:33 Range/Units Whole Blood Glucose 170 H 70-110 MG/DL Sodium Level 147 H 136-145 mmol/L Potassium Level 3.4 L 3.5-5.1 mmol/L Chloride Level 113 H 101-111 mmol/L Carbon Dioxide Level 23 21-32 mmol/L Blood Urea Nitrogen 68 H 7-18 mg/dL Creatinine 3.4 H 0.5-1.0 mg/dL Glomerular Filtration Rate Calc 14 >90 mL/min Random Glucose 117 H 70-105 mg/dL Total Calcium 7.7 L 8.5-10.1 mg/dL Magnesium Level 1.80 1.80-2.40 mg/dL Procalcitonin < 0.05 L 0.05-0.5 ng/mL Hemoglobin A1c 9.7 H 4.0-6.0 % Estimated Average Glucose (eAG) 232 H 70-126 mg/dL Phosphorus Level 7.3 H 2.5-4.9 mg/dL Lactic Acid Level 1.6 0.8-2.5 mmol/L Thyroid Stimulating Hormone (TSH) 3.15 0.36-3.74 uIU/mL Test 03/10/24 17:36 Range/Units Ammonia 15 11-32 umol/L Troponin I High Sensitivity 9 4-50 ng/L B-Type Natriuretic Peptide 611 H 0-100 pg/mL DIAGNOSTICS / RADIOLOGY: REASON: sepsis, backpain, ruling out device infection ORDERING PHYSICIAN: JUAN ANTONIO ALLISON CNP PROCEDURE: T SPINE WO - CT THORACIC SPINE W/O CONTRAST CT THORACIC SPINE W/O CONTRAST, CT LUMBAR SPINE W/O CONTRAST HISTORY: sepsis, back pain, ruling out device infection TECHNIQUE: CT THORACIC SPINE W/O CONTRAST, CT LUMBAR SPINE W/O CONTRAST. Coronal and sagittal reformats were obtained. CT was performed with one or more of the following dose reduction techniques: Automated exposure control, adjustment of the mA and/or kV according to the patient's size, or use of the iterative reconstruction technique. FINDINGS: Evaluation of the cord and discs is limited with CT. No evidence of compression fracture or dislocation. There is diffuse osteopenia degraded evaluation of the study. Multilevel degenerative changes are noted. Postop changes of posterior fusion are seen at L1-L2 on the right with pedicle screws and fixation bar. Advanced degenerative changes are seen at L2-L3 with disc space loss, endplate osteophytes and endplate sclerosis/lucencies, underlying infection is not excluded. Correlate clinically. Stimulator leads are seen in the lower thoracic spine. Small left and moderate right pleural effusion with bilateral lower lobe consolidation. The aorta is normal in caliber. No acute findings in the visualized abdomen. The visualized lungs are clear. IMPRESSION: There is diffuse osteopenia degraded evaluation of the study. Multilevel degenerative changes are noted. Postop changes of posterior fusion are seen at L1-L2 on the right with pedicle screws and fixation bar. Advanced degenerative changes are seen at L2-L3 with disc space loss, endplate osteophytes and endplate sclerosis/lucencies, underlying infection is not excluded. Correlate clinically. Stimulator leads are seen in the lower thoracic spine. Small left and moderate right pleural effusion with bilateral lower lobe consolidation.. DICTATED BY: DEVON GEORGES MD DATE: 03/11/24 1245 REASON: sepsis, backpain, ruling out device infection ORDERING PHYSICIAN: JUAN ANTONIO ALLISON CNP PROCEDURE: L SPIN WO - CT LUMBAR SPINE W/O CONTRAST CT THORACIC SPINE W/O CONTRAST, CT LUMBAR SPINE W/O CONTRAST HISTORY: sepsis, back pain, ruling out device infection TECHNIQUE: CT THORACIC SPINE W/O CONTRAST, CT LUMBAR SPINE W/O CONTRAST. Coronal and sagittal reformats were obtained. CT was performed with one or more of the following dose reduction techniques: Automated exposure control, adjustment of the mA and/or kV according to the patient's size, or use of the iterative reconstruction technique. FINDINGS: Evaluation of the cord and discs is limited with CT. No evidence of compression fracture or dislocation. There is diffuse osteopenia degraded evaluation of the study. Multilevel degenerative changes are noted. Postop changes of posterior fusion are seen at L1-L2 on the right with pedicle screws and fixation bar. Advanced degenerative changes are seen at L2-L3 with disc space loss, endplate osteophytes and endplate sclerosis/lucencies, underlying infection is not excluded. Correlate clinically. Stimulator leads are seen in the lower thoracic spine. Small left and moderate right pleural effusion with bilateral lower lobe consolidation. The aorta is normal in caliber. No acute findings in the visualized abdomen. The visualized lungs are clear. IMPRESSION: There is diffuse osteopenia degraded evaluation of the study. Multilevel degenerative changes are noted. Postop changes of posterior fusion are seen at L1-L2 on the right with pedicle screws and fixation bar. Advanced degenerative changes are seen at L2-L3 with disc space loss, endplate osteophytes and endplate sclerosis/lucencies, underlying infection is not excluded. Correlate clinically. Stimulator leads are seen in the lower thoracic spine. Small left and moderate right pleural effusion with bilateral lower lobe consolidation.. DICTATED BY: DEVON GEORGES MD DATE: 03/11/24 1245 REASON: AMS ORDERING PHYSICIAN: NOEL DUARTE NP PROCEDURE: HEAD WO - CT HEAD/BRAIN W/O CONTRAST CT HEAD/BRAIN W/O CONTRAST INDICATION: AMS TECHNIQUE: CT HEAD/BRAIN W/O CONTRAST. CT was performed with one or more of the following dose reduction techniques: Automated exposure control, adjustment of the mA and/or kV according to the patient's size, or use of the iterative reconstruction technique. Comparison: None FINDINGS: Cerebral atrophy seen. Nonspecific periventricular and subcortical white matters changes are noted likely representing small vessel ischemic changes. No midline shift or herniation. No extra axial collection. No acute intracranial bleed. The visualized paranasal sinuses and mastoid air cells are normally aerated. IMPRESSION: Mild atrophy. No acute intracranial bleed is seen. Scattered nonspecific white matter changes DICTATED BY: DEVON GEORGES MD DATE: 03/10/24 1736 REASON: SOB ORDERING PHYSICIAN: NOEL DUARTE NP PROCEDURE: CXR1VW - CHEST 1VW INDICATION: SOB TECHNIQUE: CHEST 1VW COMPARISON: 03/08/2024 FINDINGS/IMPRESSION: Bilateral airspace consolidation suggesting vascular congestion/edema versus pneumonia. Small right effusion is seen. Cardiomegaly is seen Mild degenerative changes of the spine. The visualized upper abdomen appears unremarkable. DICTATED BY: DEVON GEORGES MD DATE: 03/10/241818 ASSESSMENT: Hypokalemia Acute on chronic renal failure Nephrotic syndrome Metabolic encephalopathy Sepsis without shock Pneumonia Diabetes mellitus type 2 Hypertension Obesity BMI 31.7 PAD both lower extremities Right pleural effusion with mild interstitial fibrosis Possible infectious process involving L1-L2. PLAN: Labs, diagnostic, radiologic exams reviewed and interpreted by myself and supervising physician. We have reviewed external records in detail Discontinue Vancomycin due to worsening renal function, use alternative antibiotic. Require close monitoring of renal function and electrolytes Order CBC, CMP, uric acid, complete iron panel, ferritin and electrolytes in am Follow up blood cultures BiPAP as necessary, for respiratory distress IV pressors as needed Monitor blood pressure adjust medication doses as needed Avoid hypotensive episodes May use Dilaudid 0.5 mg IV every 6 hours as needed for severe pain Monitor blood sugars Strict intake, output, and daily weight should be monitored Please renally adjust medications Avoid nephrotoxic and nonsteroidal drugs Avoid contrast if possible Will continue to monitor renal function, anemia, electrolytes Treatment plan discussed with patient Questions were answered We have discussed with the other team physicians in detail about the care plan We will continue to monitor the patient closely Total critical care time spent with patient, nursing staff, critical care team over 35 minutes ATTESTATION BY PHYSICIAN I have seen and examined the patient. I reviewed the documentation, medical decision making, and treatment plan as noted by the mid-level provider above. I agree with the findings and plan of care. LIZZY TRONCOSO MD, [facility] Mar 12, 2024 13:44
--- NOTE | 2024-03-12 16:56 | NUR ---
[facility] Consult: Patient with low ene score with no wounds noted per primary nurse. Recommendations provided to primary nurse. Education provided. Addendum: 03/12/24 at 1657 by AUGUSTO BETANCOURT RN RN/ Amended: Links added.
--- NOTE | 2024-03-12 16:56 | HMCIMG ---
MR SPINAL CANAL, LUMBAR WO CON HISTORY: Pain COMPARISON: CT from 03/11/2024 TECHNIQUE: MRI of the lumbar spine was performed utilizing multiple pulse sequences in axial and sagittal plane. Patient was not given contrast through intravenous route. FINDINGS: Endplate degenerative changes with disc space narrowing are seen predominantly involving the L1-L2 level. Orthopedic fixation plates and screws are seen traversing the T12 and L1 with paramagnetic susceptibility artifacts limiting evaluation. There is disc noted at the lumbosacral junction and for numbering purposes only, this level will be designated as S1-S2. No abnormal signal intensity is seen of the visualized bony structure. No loss of vertebral height is seen. There is straightening of normal lumbar curvature which may be related to muscle spasm or positioning. Degenerative disc signals are present at all lumbar spine levels. Visualized distal conus is unremarkable. At the L2-3 level, there is spondylotic with central disc protrusion/herniation with bilateral ligamentum flavum hypertrophy causing anterior thecal sac compression with bilateral lateral recess stenosis and bilateral neural foraminal stenosis. The thecal sac measures approximately 7 mm in its anterior posterior dimension. At the L3-4 level, there is spondylotic disc with bilateral ligamentum flavum hypertrophy causing anterior thecal sac compression with bilateral lateral recess stenosis and bilateral neural foraminal stenosis. The thecal sac measures approximately 6.2 mm in its anterior posterior dimension. At the L4-5 level, there is spondylotic disc with bilateral ligamentum flavum hypertrophy causing anterior thecal sac compression with bilateral lateral recess stenosis and bilateral neural foraminal stenosis. The thecal sac measures approximately 8.4 mm in its anterior posterior dimension. At the L5-S1 level, there is spondylotic disc with bilateral ligamentum flavum hypertrophy and facet hypertrophy causing anterior thecal sac compression with bilateral lateral recess stenosis and bilateral neural foraminal stenosis. The thecal sac measures approximately 8.2 mm in its anterior posterior dimension. IMPRESSION: 1. DJD with lumbar spine spondylosis as described above. Evaluation at T12 and L1 are limited due to postop artifacts.
--- NOTE | 2024-03-12 16:59 | HMCIMG ---
MR BRAIN WO CON HISTORY: Altered mental status COMPARISON: None TECHNIQUE: MRI of the brain was performed utilizing multiple pulse sequences in axial, coronal and sagittal planes. Patient was not given contrast through intravenous route. FINDINGS: The ventricles and extraventricular CSF spaces are dilated consistent with cerebral atrophy. Nonspecific white matter changes are seen. There is no midline shift, mass effect or herniation. No subacute hemorrhage is seen. No MR evidence of acute infarct is seen in the diffusion weighted images. Cerebellar tonsils are in normal position. There are bilateral ethmoid and sphenoid sinusitis with mucoperiosteal thickening. No MR evidence of a mass lesion is seen in this noncontrast study. IMPRESSION: 1. No MR evidence of acute infarct is seen in the diffusion weighted images. Atrophy with white matter changes.
--- NOTE | 2024-03-12 17:30 | HMCIMG ---
CT CHEST W/O CONTRAST HISTORY: Pneumonia COMPARISON: None TECHNIQUE: Multiple sequential axial images of the chest were obtained from the thoracic inlet through upper abdomen. Patient was not given contrast through intravenous route. FINDINGS: There are bilateral pleural effusions with compressive atelectasis. Coronary arterial calcifications are seen. Gallbladder is distended. There is mild anasarca. No pleural effusion or pericardial effusion is seen. There is no evidence of pneumothorax. There are normal size mediastinal and hilar lymph nodes. The heart is not enlarged. Degenerative changes of the thoracolumbar spine are present. There is no evidence of adrenal nodule. IMPRESSION: 1. Mild to moderate bilateral pleural effusions with compressive atelectasis. CT was performed with one or more following dose reduction techniques: automated exposure control, adjustment of the mA and kv according to patient's size, or use of a iterative reconstruction technique.
--- NOTE | 2024-03-12 20:46 | CONS ---
pt out during my visit will f/u tomorrow Patient History: Carcinomas FATHER, , Age: 85 (lungs ) Cardiovascular disease MOTHER, , Age: 92 Diabetes mellitus MOTHER, , Age: 92 FATHER, , Age: 85 BROTHER SISTER SISTER SISTER Hypertension MOTHER, , Age: 92 SISTER SISTER SISTER No Family History of: Alzheimer's disease Asthma Chronic obstructive pulmonary disease Completed stroke Immunocompromised state Sudden Unknown Vitals/Labs Vital Signs Date Time Temp Pulse Resp B/P (MAP) Pulse Ox O2 Delivery O2 Flow Rate FiO2 03/12/24 19:24 83 16 03/12/24 18:00 136/90 94 Room Air 03/12/24 17:00 98.1 03/12/24 08:00 0 21 Laboratory Tests 03/12/24 04:22 Allergies: Coded Allergies: doxycycline (Unverified Allergy, Unknown, SWELLING, 03/11/24) iodine (Unverified Allergy, Unknown, Hives, itching, 03/11/24) Medications Current Medications Lorazepam 2 mg STK-MED ONCE .ROUTE; Start 03/10/24 at 17:38; Stop 03/10/24 at 17:39; Status DC Lorazepam 1 mg ONCE STAT IVP Last administered on 03/10/24at 17:46; Start 03/10/24 at 17:39; Stop 03/10/24 at 17:40; Status DC Sodium Chloride 1,000 ml @ 500 mls/hr Q2H STAT IV Last administered on 03/10/24at 20:40; Start 03/10/24 at 20:04; Stop 03/10/24 at 22:03; Status DC Ceftriaxone Sodium 1 gm ONCE STAT IVPB Last administered on 03/10/24at 20:42; Start 03/10/24 at 20:16; Stop 03/10/24 at 20:18; Status DC Azithromycin 250 ml @ 250 mls/hr Q24H STAT IVPB Last administered on 03/10/24at 20:42; Start 03/10/24 at 20:16; Stop 03/10/24 at 21:15; Status DC Piperacillin Sod/ Tazobactam Sod 3.375 gm Q12H IVPB Last administered on 03/11/24at 09:36; Start 03/10/24 at 21:00; Stop 03/11/24 at 10:45; Status DC Sodium Chloride 50 ml AD IV; Start 03/11/24 at 00:00; Stop 03/10/24 at 21:15; Status DC Sodium Chloride 50 ml 2042 ONCE IV; Start 03/10/24 at 20:42; Stop 03/10/24 at 21:14; Status DC Doxycycline Hyclate 250 ml @ 125 mls/hr Q12H IV; Start 03/11/24 at 12:00; Stop 03/11/24 at 10:45; Status DC Albuterol 1 UDVIAL [id number] IH Last administered on 03/12/24at 19:24; Start 03/11/24 at 00:00; Stop 04/10/24 at 00:00 Furosemide 20 mg Q8H IV Last administered on 03/12/24at 14:37; Start 03/10/24 at 21:30; Stop 04/09/24 at 21:29 Carvedilol 6.25 mg BIDMEALS PO Last administered on 03/12/24at 17:02; Start 03/10/24 at 22:00; Stop 04/09/24 at 21:59 Insulin Human Regular INSULIN SLIDING SCAL... Q6H6 SQ Last administered on 03/11/24at 18:22; Start 03/11/24 at 00:00; Stop 03/12/24 at 10:40; Status DC Dextrose 50 ml AD PRN IV; Start 03/10/24 at 21:30; Stop 04/09/24 at 21:29 Glucagon 1 mg AD PRN IM; Start 03/10/24 at 21:30; Stop 04/09/24 at 21:29 Methylprednisolone Sodium Succinate 125 mg ONCE ONCE IVP Last administered on 03/10/24at 22:11; Start 03/10/24 at 22:00; Stop 03/10/24 at 22:01; Status DC Methylprednisolone Sodium Succinate 40 mg BID IVP Last administered on 03/11/24at 09:36; Start 03/11/24 at 09:00; Stop 03/11/24 at 10:45; Status DC Famotidine 20 mg DAILY IV Last administered on 03/12/24at 08:16; Start 03/11/24 at 09:00; Stop 04/10/24 at 08:59 Calcium Gluconate 1 gm/Sodium Chloride 100 ml @ 0 mls/hr PROTOCOL IV; Start 03/10/24 at 22:00; Stop 04/09/24 at 21:59 Albuterol Sulfate 2.5MG Q4H PRN IH; Start 03/10/24 at 23:00; Stop 04/09/24 at 22:59 Acetaminophen 650 mg Q6H PRN PO Last administered on 03/11/24at 17:35; Start 03/10/24 at 23:00; Stop 03/11/24 at 17:42; Status DC Hydralazine HCl 10 mg Q6H PRN IV Last administered on 03/12/24at 17:02; Start 03/10/24 at 23:00; Stop 04/09/24 at 22:59 Heparin Sodium (Porcine) 5,000 unit BID SQ Last administered on 03/12/24at 08:18; Start 03/11/24 at 09:00; Stop 04/10/24 at 08:59 Ondansetron HCl 4 mg Q6H PRN IV Last administered on 03/12/24at 11:55; Start 03/10/24 at 23:00; Stop 04/09/24 at 22:59 Heparin Sodium (Porcine) 5,000 unit BID SQ; Start 03/11/24 at 09:00; Stop 03/10/24 at 23:12; Status DC Calcium Gluconate 1 gm/Sodium Chloride 100 ml @ 0 mls/hr PROTOCOL IV; Start 03/11/24 at 05:00; Stop 03/11/24 at 04:51; Status DC Meropenem 500 mg/ Sodium Chloride 100 ml @ 33.333 mls/ hr Q12H IV; Start 03/11/24 at 10:30; Stop 03/11/24 at 10:48; Status DC Vancomycin HCl 1 each AD IV; Start 03/11/24 at 10:30; Stop 03/25/24 at 10:29 Levofloxacin/ Dextrose 100 ml @ 100 mls/hr Q24H IV; Start 03/11/24 at 11:00; Stop 03/11/24 at 10:53; Status DC Meropenem 500 mg Q12H IVPB Last administered on 03/12/24at 10:11; Start 03/11/24 at 11:00; Stop 03/21/24 at 10:59 Levofloxacin/ Dextrose 50 ml @ 50 mls/hr Q48H IVPB Last administered on 03/11/24at 12:40; Start 03/11/24 at 11:00; Stop 03/21/24 at 10:59 Vancomycin HCl 250 ml @ 125 mls/hr ONCE ONCE IV; Start 03/11/24 at 11:00; Stop 03/11/24 at 11:03; Status DC Vancomycin HCl 250 ml @ 125 mls/hr ONCE ONCE IV Last administered on 03/11/24at 12:40; Start 03/11/24 at 11:30; Stop 03/11/24 at 13:29; Status DC Vancomycin HCl 250 ml @ 125 mls/hr Q48H IV; Start 03/13/24 at 11:30; Stop 03/23/24 at 11:29 Acetaminophen 650 mg Q6H PRN PO Last administered on 03/12/24at 15:16; Start 03/11/24 at 17:30; Stop 04/10/24 at 17:29 Potassium Chloride 20 meq ONCE ONCE PO Last administered on 03/12/24at 09:18; Start 03/12/24 at 09:00; Stop 03/12/24 at 09:03; Status DC Gabapentin 100 mg TID PO Last administered on 03/12/24at 10:11; Start 03/12/24 at 10:00; Stop 04/11/24 at 09:59 Hydromorphone HCl 1 mg Q4H PRN IVP Last administered on 03/12/24at 17:03; Start 03/12/24 at 10:00; Stop 03/17/24 at 09:59 Insulin Human Regular INSULIN SLIDING SCAL... ACHS SQ Last administered on 03/12/24at 17:13; Start 03/12/24 at 11:30; Stop 04/11/24 at 11:29 ILIANA KILPATRICK PAC Mar 12, 2024 20:46
[2024-03-13] VITALS (50 sets, daily range): BP systolic 124–171; BP diastolic 71–101; PULSE 84–147; RESP 8–20; TEMP 97.9–98.2; O2SAT 95–99
[2024-03-13 04:37] LABS: BASOPHILS # (AUTO) 0.03 K/uL (0.00-0.20); BASOPHILS % (AUTO) 0.2 % (0.0-5.0); EOSINOPHILS # (AUTO) 0.21 K/uL (0.00-0.70); EOSINOPHILS % (AUTO) 1.3 % (0.0-8.0); HEMATOCRIT 32.9 % (36-48); IMMATURE GRANULOCYTE ABSOLUTE 0.11 K/uL (0-1); LYMPHOCYTES # (AUTO) 1.4 K/uL (1.0-4.8); LYMPHOCYTES % (AUTO) 8.8 % (21.0-51.0); MEAN CORPUSCULAR HGB CONC 31.9 g/dL (32.0-36.0); MEAN CORPUSCULAR VOLUME 97.1 fL (79-99); MONOCYTES # (AUTO) 1.1 K/uL (0.1-1.0); MONOCYTES % (AUTO) 7.1 % (3.0-13.0); NEUTROPHILS % (AUTO) 81.9 % (40.0-77.0); PLATELET COUNT (AUTO) 244 K/uL (130-400); RED BLOOD CELL COUNT(AUTO) 3.39 MIL/uL (4.00-5.50); RED CELL DISTRIBUTION WIDTH 15.2 % (11.0-15.5); WHITE BLOOD COUNT (AUTO) 15.9 K/uL (4.8-10.8)
[2024-03-13 04:50] LABS: % IRON SATURATION 24.6 % (22-44)
[2024-03-13 05:11] LABS: ALBUMIN 1.6 g/dL (3.5-5.0); BILIRUBIN,TOTAL 0.2 mg/dL (0.2-1.0); CREATININE 3.5 mg/dL (0.5-1.0); PHOSPHORUS 6.4 mg/dL (2.5-4.9); POTASSIUM 3.6 mmol/L (3.5-5.1); TOTAL PROTEIN, SERUM 5.2 g/dL (6.0-8.3)
--- NOTE | 2024-03-13 06:47 | CONS ---
INFECTIOUS DISEASE CONSULTATION NOTE DATE OF SERVICE: 03/12/2024 REFERRING PHYSICIAN: Dr. Rajeev Melgoza. REASON FOR CONSULTATION: Antibiotic management. HISTORY OF PRESENT ILLNESS: A 68-year-old female with history of CHF, diabetes mellitus, dyslipidemia, who presented to the hospital with altered mental status. The patient also found with some shortness of breath. The patient admitted to ICU for further care. Procalcitonin is negative. WBC elevated at 18,000. The patient was started on vancomycin and levofloxacin The patient was discharged from this facility two days ago. During the previous admission, she was found to have pneumonia and cellulitis and acute on chronic renal failure. PAST MEDICAL HISTORY: * Diabetes mellitus. * Dyslipidemia. * Chronic kidney disease. * Peripheral vascular disease. * CHF. PAST SURGICAL HISTORY: * Femoropopliteal bypass. * Back surgery. * Nerve stimulator implant. ALLERGIES: * DOXYCYCLINE. * IODINE. CURRENT MEDICATIONS: Reviewed. SOCIAL HISTORY: No alcohol, tobacco or illicit drug use. FAMILY HISTORY: Positive for diabetes mellitus. REVIEW OF SYSTEMS: Greater than 10 systems were reviewed, negative except as documented above. PHYSICAL EXAMINATION: GENERAL: Elderly female, awake, slightly confused. VITAL SIGNS: Temperature 98.4, respiratory 23, blood pressure 158/85. EYES: No icterus. Pupils are equal and reactive. HENT: No oral thrush seen. Moist oral mucosa. NECK: Supple. No JVD or thyromegaly. LUNGS: Good air entry. No rales, no rhonchi. CARDIOVASCULAR: S1, S2 regular. No murmur heard. ABDOMEN: Full. Soft. Nontender. Bowel sound is present. CENTRAL NERVOUS SYSTEM: Awake, alert. No focal deficits. SKIN: No rashes. No itchiness. LYMPHATIC: No peripheral lymphadenopathy. BACK: No deformity. No pressure ulcer. MUSCULOSKELETAL: No joint swelling, erythema or tenderness. LABORATORY DATA: Procalcitonin negative. Sodium 147, potassium 3.4, BUN 63, creatinine 3.8. WBC 18.5, hemoglobin 10.2, platelet 254. Urine toxicology negative. Blood culture, no growth for one day. RADIOLOGY: CT of the thoracic spine unremarkable. ASSESSMENT: A 68-year-old female presenting with altered mental status. CURRENT PROBLEMS: Include: ____ * Encephalopathy which is multifactorial. * Heart failure. * Acute on chronic renal failure. * Leukocytosis. * Anemia. * Diabetes mellitus. * Hypertension. PLAN: * Obtain MRI of the thoracic and lumbar spine. * Continue critical care support. * Follow up cultures. * Continue pain management. * Continue antiemetic. * Avoid nephrotoxic medication. * Monitor electrolytes and correct as needed. Thank you for allowing me to participate in the care of this patient. TID: [id number] RECEIPT: [id number]
[2024-03-13] MEDS ORDERED: VANCOMYCIN 1G/250ML KIT 250 ML IV SCH (11:30)
--- NOTE | 2024-03-13 13:45 | PN ---
NEPHROLOGY PROGRESS NOTE Date/Time Patient Seen: Mar 13, 2024 SUBJECTIVE: This is a 68 year old female with a past medical history of congestive heart failure history, hypertension, hyperlipidemia and chronic low back pain. She presented to the emergency room with complaints of altered mental status. Patient has a recent hospital admission for similar reason and was discharged on 03/07/2024 Blood culture has been negative She continues on broad-spectrum antibiotics, including vancomycin. Imaging studies were noted. Pending further cardiology and ID recommendations Neurosurgery has been consulted for possible lumbar spines osteomyelitis She was noted to have elevated BUN/creatinine. We are consulted for renal failure. Renal function has remained stable Electrolytes are stable. Hemoglobin is stable at 10.5 Iron panel was noted. She was seen in the ICU, in no acute distress She is complaining of mouth sores. Condition is critical and guarded REVIEW OF SYSTEMS: GENERAL: Positive for generalized weakness NEUROLOGIC: Negative for any blurry vision, blind spots, double vision, facial asymmetry, dysphagia, dysarthria, hemiparesis, hemisensory deficits, vertigo, ataxia. HEENT: Negative for any head trauma, neck trauma, neck stiffness, photophobia, phonophobia, sinusitis, rhinitis. CARDIAC: Negative for any chest pain, dyspnea on exertion, paroxysmal nocturnal dyspnea, peripheral edema. PULMONARY: Negative for any shortness of breath, wheezing, COPD, or TB exposure. GASTROINTESTINAL: Negative for any abdominal pain, nausea, vomiting, bright red blood per rectum, melena. GENITOURINARY: Negative for any dysuria, hematuria, incontinence. INTEGUMENTARY: Negative for any rashes, cuts, insect bites. RHEUMATOLOGIC: Negative for any joint pains, photosensitive rashes, history of vasculitis or kidney problems. HEMATOLOGIC: Negative for any abnormal bruising, frequent infections or bleeding. Vital Signs (last 8hr) Date Time Temp Pulse Resp B/P (MAP) Pulse Ox O2 Delivery O2 Flow Rate FiO2 03/12/24 12:03 82 16 03/12/24 12:00 98.4 99 23 158/85 94 Room Air 03/12/24 11:00 83 10 170/86 93 Room Air 03/12/24 10:00 82 12 174/89 96 Room Air 03/12/24 09:00 93 15 163/79 94 Room Air 03/12/24 08:16 164/68 03/12/24 08:00 95 Room Air* 0 21 12/16/24 08:00 97 17 161/94 93 Room Air 03/12/24 07:00 97.9 93 15 164/68 90 Nasal Cannula 2.0 03/12/24 06:38 92 16 03/12/24 06:38 92 16 N/Cannula Low lpm 2.0 28 PHYSICAL EXAM: GENERAL: Alert and oriented x 3. No acute distress. Well-nourished. EYES: EOMI. Anicteric. HENT: Moist mucous membranes. No scleral icterus. No cervical lymphadenopathy. LUNGS: Clear to auscultation bilaterally. No accessory muscle use. CARDIOVASCULAR: Regular rate and rhythm. No murmur. No JVD. ABDOMEN: Soft, non-tender and non-distended. No palpable masses. EXTREMITIES: No edema. Non-tender. SKIN: No rashes or lesions. Warm. NEUROLOGIC: No focal neurological deficits. CN II-XII grossly intact, but not individually tested. PSYCHIATRIC: Cooperative. Appropriate mood and affect. Current Medications Medications (Trade) Dose Ordered Sig/Yefri Route PRN Reason Start Time Stop Time Status Last Admin Dose Admin Acetaminophen (TYLenol 325MG TAB) 650 mg Q6H PRN PO TEMPERATURE GREATER THAN 101.5 03/10/24 23:00 03/11/24 17:42 DC 03/11/24 17:35 650 MG Acetaminophen (TYLenol 325MG TAB) 650 mg Q6H PRN PO MILD PAIN (1-3) 03/11/24 17:30 04/10/24 17:29 03/12/24 08:15 650 MG Albuterol (DUOneb) 1 UDVIAL [id number] IH 03/11/24 00:00 04/10/24 00:00 03/12/24 12:02 1 UDVIAL Albuterol Sulfate (Proventil 0.083% 2.5mg/3ml) 2.5MG Q4H PRN IH SHORTNESS OF BREATH 03/10/24 23:00 04/09/24 22:59 Azithromycin 250 ml @ 250 mls/hr Q24H STAT IVPB 03/10/24 20:16 03/10/24 21:15 DC 03/10/24 20:42 250 MLS/HR Calcium Gluconate 1 gm/Sodium Chloride 100 ml @ 0 mls/hr PROTOCOL IV 03/10/24 22:00 04/09/24 21:59 Calcium Gluconate 1 gm/Sodium Chloride 100 ml @ 0 mls/hr PROTOCOL IV 03/11/24 05:00 03/11/24 04:51 DC Carvedilol (Coreg 6.25MG) 6.25 mg BIDMEALS PO 03/10/24 22:00 04/09/24 21:59 03/12/24 08:16 6.25 MG Ceftriaxone Sodium (ROCEphine 1G INJ) 1 gm ONCE STAT IVPB 03/10/24 20:16 03/10/24 20:18 DC 03/10/24 20:42 1 GM Dextrose (D50w) 50 ml AD PRN IV HYPOGLYCEMIA PROTOCOL 03/10/24 21:30 04/09/24 21:29 Doxycycline Hyclate 250 ml @ 125 mls/hr Q12H IV 03/11/24 12:00 03/11/24 10:45 DC Famotidine (Pepcid 20mg Vial) 20 mg DAILY IV 03/11/24 09:00 04/10/24 08:59 03/12/24 08:16 20 MG Furosemide (LASix 20MG VIAL) 20 mg Q8H IV 03/10/24 21:30 04/09/24 21:29 03/12/24 05:44 20 MG Gabapentin (NEURontin 100 mg CAP) 100 mg TID PO 03/12/24 10:00 04/11/24 09:59 03/12/24 10:11 100 MG Glucagon (Glucagon 1mg Kit) 1 mg AD PRN IM HYPOGLYCEMIA PROTOCOL 03/10/24 21:30 04/09/24 21:29 Heparin Sodium (Porcine) (HEParin 5,000 UNIT VIAL) 5,000 unit BID SQ 03/11/24 09:00 04/10/24 08:59 03/12/24 08:18 5,000 UNIT Heparin Sodium (Porcine) (HEParin 5,000 UNIT VIAL) 5,000 unit BID SQ 03/11/24 09:00 03/10/24 23:12 DC Hydralazine HCl (APRESOLine 20MG INJ) 10 mg Q6H PRN IV For:SBP above 160;DBP above 90 03/10/24 23:00 04/09/24 22:59 03/12/24 10:12 10 MG Hydromorphone HCl (DiLAUDid 1MG INJ) 1 mg Q4H PRN IVP SEVERE PAIN (7-10) 03/12/24 10:00 03/17/24 09:59 03/12/24 10:43 1 MG Insulin Human Regular (humuLIN R 100 UNIT/ML 3ML) INSULIN SLIDING SCAL... ACHS SQ 03/12/24 11:30 04/11/24 11:29 Insulin Human Regular (humuLIN R 100 UNIT/ML 3ML) INSULIN SLIDING SCAL... Q6H6 SQ 03/11/24 00:00 03/12/24 10:40 DC 03/11/24 18:22 3 UNIT Levofloxacin/ Dextrose 50 ml @ 50 mls/hr Q48H IVPB 03/11/24 11:00 03/21/24 10:59 03/11/24 12:40 50 MLS/HR Levofloxacin/ Dextrose 100 ml @ 100 mls/hr Q24H IV 03/11/24 11:00 03/11/24 10:53 DC Lorazepam (AtiVAN) 1 mg ONCE STAT IVP 03/10/24 17:39 03/10/24 17:40 DC 03/10/24 17:46 1 MG Meropenem (Merrem) 500 mg Q12H IVPB 03/11/24 11:00 03/21/24 10:59 03/12/24 10:11 500 MG Meropenem 500 mg/ Sodium Chloride 100 ml @ 33.333 mls/ hr Q12H IV 03/11/24 10:30 03/11/24 10:48 DC Methylprednisolone Sodium Succinate (Solu-medROL 40MG) 40 mg BID IVP 03/11/24 09:00 03/11/24 10:45 DC 03/11/24 09:36 40 MG Ondansetron HCl (zoFRAN 4MG INJ) 4 mg Q6H PRN IV NAUSEA/VOMITING 03/10/24 23:00 04/09/24 22:59 03/12/24 11:55 4 MG Piperacillin Sod/ Tazobactam Sod (Zosyn 3.375gm+NS 50ml) 3.375 gm Q12H IVPB 03/10/24 21:00 03/11/24 10:45 DC 03/11/24 09:36 3.375 GM Sodium Chloride 1,000 ml @ 500 mls/hr Q2H STAT IV 03/10/24 20:04 03/10/24 22:03 DC 03/10/24 20:40 500 MLS/HR Sodium Chloride (NS 50ml) 50 ml AD IV 03/11/24 00:00 03/10/24 21:15 DC Vancomycin HCl 250 ml @ 125 mls/hr Q48H IV 03/13/24 11:30 03/23/24 11:29 Vancomycin HCl (Vancomycin Protocol) 1 each AD IV 03/11/24 10:30 03/25/24 10:29 LABORATORY: [ ] Hematology Labs: Test 03/13/24 04:12 03/12/24 04:22 Range/Units White Blood Count 15.9 H 4.8-10.8 K/uL Red Blood Count 3.39 L 4.00-5.50 MIL/uL Hemoglobin 10.5 L 12.0-16.0 g/dL Hematocrit 32.9 L 36-48 % Mean Corpuscular Volume 97.1 79-99 fL Mean Corpuscular Hemoglobin 31.0 27.0-33.0 pg Mean Corpuscular Hemoglobin Concent 31.9 L 32.0-36.0 g/dL Red Cell Distribution Width 15.2 11.0-15.5 % Platelet Count 244 130-400 K/uL Mean Platelet Volume 11.6 H 7.5-10.5 fL Immature Granulocyte % (Auto) 0.7 0-1 % Neutrophils (%) (Auto) 81.9 H 40.0-77.0 % Lymphocytes (%) (Auto) 8.8 L 21.0-51.0 % Monocytes (%) (Auto) 7.1 3.0-13.0 % Eosinophils (%) (Auto) 1.3 0.0-8.0 % Basophils (%) (Auto) 0.2 0.0-5.0 % Neutrophils # (Auto) 13.0 H 1.8-7.7 K/uL Lymphocytes # (Auto) 1.4 1.0-4.8 K/uL Monocytes # (Auto) 1.1 H 0.1-1.0 K/uL Eosinophils # (Auto) 0.21 0.00-0.70 K/uL Basophils # (Auto) 0.03 0.00-0.20 K/uL Absolute Immature Granulocyte (auto 0.11 0-1 K/uL Nucleated Red Blood Cells 0.0 0.0-0.19 % Segmented Neutrophils % 88 H 40-70 % Band Neutrophils % 1 0-2 % Lymphocytes % (Manual) 6 L 22-44 % Monocytes % (Manual) 5 2-9 % Differential Comment MANUAL DIFFERENTIAL White Cell Morphology Comment See comments Platelet Morphology Comment ADEQUATE Red Blood Cell Morphology See comments Red Cell Morphology Comment Chemistry Labs: Test 03/13/24 12:14 03/13/24 04:12 03/12/24 04:22 Range/Units Whole Blood Glucose 180 H 70-110 MG/DL Sodium Level 145 136-145 mmol/L Potassium Level 3.6 3.5-5.1 mmol/L Chloride Level 111 101-111 mmol/L Carbon Dioxide Level 24 21-32 mmol/L Blood Urea Nitrogen 68 H 7-18 mg/dL Creatinine 3.5 H 0.5-1.0 mg/dL Glomerular Filtration Rate Calc 14 >90 mL/min Random Glucose 160 H 70-105 mg/dL Total Calcium 8.0 L 8.5-10.1 mg/dL Phosphorus Level 6.4 H 2.5-4.9 mg/dL Iron Level 47 #L 50-170 mcg/dL Total Iron Binding Capacity 191 L 250-450 mcg/dL Percent Iron Saturation 24.6 22-44 % Ferritin 441 H 15-150 ng/mL Total Bilirubin 0.2 0.2-1.0 mg/dL Aspartate Amino Transf (AST/SGOT) 24 10-37 U/L Alanine Aminotransferase (ALT/SGPT) 23 12-78 U/L Alkaline Phosphatase 74 50-136 U/L Total Protein 5.2 L 6.0-8.3 g/dL Albumin 1.6 L 3.5-5.0 g/dL Procalcitonin 0.05 0.05-0.5 ng/mL Magnesium Level 1.80 1.80-2.40 mg/dL Parathyroid Hormone (Intact) 104.8 15-65 pg/mL DIAGNOSTICS / RADIOLOGY: REASON: AMS ORDERING PHYSICIAN: DENA FAUST PROCEDURE: BRAIN WO - MR BRAIN WO CON MR BRAIN WO CON HISTORY: Altered mental status COMPARISON: None TECHNIQUE: MRI of the brain was performed utilizing multiple pulse sequences in axial, coronal and sagittal planes. Patient was not given contrast through intravenous route. FINDINGS: The ventricles and extraventricular CSF spaces are dilated consistent with cerebral atrophy. Nonspecific white matter changes are seen. There is no midline shift, mass effect or herniation. No subacute hemorrhage is seen. No MR evidence of acute infarct is seen in the diffusion weighted images. Cerebellar tonsils are in normal position. There are bilateral ethmoid and sphenoid sinusitis with mucoperiosteal thickening. No MR evidence of a mass lesion is seen in this noncontrast study. IMPRESSION: 1. No MR evidence of acute infarct is seen in the diffusion weighted images. Atrophy with white matter changes. DICTATED BY: GARRICK ROWLAND MD DATE: 03/12/24 165 REASON: PNEUMONIA ORDERING PHYSICIAN: YUE AKERS MD PROCEDURE: CHEST WO - CT CHEST W/O CONTRAST CT CHEST W/O CONTRAST HISTORY: Pneumonia COMPARISON: None TECHNIQUE: Multiple sequential axial images of the chest were obtained from the thoracic inlet through upper abdomen. Patient was not given contrast through intravenous route. FINDINGS: There are bilateral pleural effusions with compressive atelectasis. Coronary arterial calcifications are seen. Gallbladder is distended. There is mild anasarca. No pleural effusion or pericardial effusion is seen. There is no evidence of pneumothorax. There are normal size mediastinal and hilar lymph nodes. The heart is not enlarged. Degenerative changes of the thoracolumbar spine are present. There is no evidence of adrenal nodule. IMPRESSION: 1. Mild to moderate bilateral pleural effusions with compressive atelectasis. CT was performed with one or more following dose reduction techniques: automated exposure control, adjustment of the mA and kv according to patient's size, or use of a iterative reconstruction technique. DICTATED BY: GARRICK ROWLAND MD DATE: 03/12/24 1715 REASON: Rule out ostemyelitis ORDERING PHYSICIAN: JUAN ANTONIO ALLISON CNP PROCEDURE: L SPN WO - MR SPINAL CANAL, LUMBAR WO CON MR SPINAL CANAL, LUMBAR WO CON HISTORY: Pain COMPARISON: CT from 03/11/2024 TECHNIQUE: MRI of the lumbar spine was performed utilizing multiple pulse sequences in axial and sagittal plane. Patient was not given contrast through intravenous route. FINDINGS: Endplate degenerative changes with disc space narrowing are seen predominantly involving the L1-L2 level. Orthopedic fixation plates and screws are seen traversing the T12 and L1 with paramagnetic susceptibility artifacts limiting evaluation. There is disc noted at the lumbosacral junction and for numbering purposes only, this level will be designated as S1-S2. No abnormal signal intensity is seen of the visualized bony structure. No loss of vertebral height is seen. There is straightening of normal lumbar curvature which may be related to muscle spasm or positioning. Degenerative disc signals are present at all lumbar spine levels. Visualized distal conus is unremarkable. At the L2-3 level, there is spondylotic with central disc protrusion/herniation with bilateral ligamentum flavum hypertrophy causing anterior thecal sac compression with bilateral lateral recess stenosis and bilateral neural foraminal stenosis. The thecal sac measures approximately 7 mm in its anterior posterior dimension. At the L3-4 level, there is spondylotic disc with bilateral ligamentum flavum hypertrophy causing anterior thecal sac compression with bilateral lateral recess stenosis and bilateral neural foraminal stenosis. The thecal sac measures approximately 6.2 mm in its anterior posterior dimension. At the L4-5 level, there is spondylotic disc with bilateral ligamentum flavum hypertrophy causing anterior thecal sac compression with bilateral lateral recess stenosis and bilateral neural foraminal stenosis. The thecal sac measures approximately 8.4 mm in its anterior posterior dimension. At the L5-S1 level, there is spondylotic disc with bilateral ligamentum flavum hypertrophy and facet hypertrophy causing anterior thecal sac compression with bilateral lateral recess stenosis and bilateral neural foraminal stenosis. The thecal sac measures approximately 8.2 mm in its anterior posterior dimension. IMPRESSION: 1. DJD with lumbar spine spondylosis as described above. Evaluation at T12 and L1 are limited due to postop artifacts. DICTATED BY: GARRICK ROWLAND MD DATE: 03/12/24 1650 REASON: sepsis, backpain, ruling out device infection ORDERING PHYSICIAN: JUAN ANTONIO ALLISON CNP PROCEDURE: T SPINE WO - CT THORACIC SPINE W/O CONTRAST CT THORACIC SPINE W/O CONTRAST, CT LUMBAR SPINE W/O CONTRAST HISTORY: sepsis, back pain, ruling out device infection TECHNIQUE: CT THORACIC SPINE W/O CONTRAST, CT LUMBAR SPINE W/O CONTRAST. Coronal and sagittal reformats were obtained. CT was performed with one or more of the following dose reduction techniques: Automated exposure control, adjustment of the mA and/or kV according to the patient's size, or use of the iterative reconstruction technique. FINDINGS: Evaluation of the cord and discs is limited with CT. No evidence of compression fracture or dislocation. There is diffuse osteopenia degraded evaluation of the study. Multilevel degenerative changes are noted. Postop changes of posterior fusion are seen at L1-L2 on the right with pedicle screws and fixation bar. Advanced degenerative changes are seen at L2-L3 with disc space loss, endplate osteophytes and endplate sclerosis/lucencies, underlying infection is not excluded. Correlate clinically. Stimulator leads are seen in the lower thoracic spine. Small left and moderate right pleural effusion with bilateral lower lobe consolidation. The aorta is normal in caliber. No acute findings in the visualized abdomen. The visualized lungs are clear. IMPRESSION: There is diffuse osteopenia degraded evaluation of the study. Multilevel degenerative changes are noted. Postop changes of posterior fusion are seen at L1-L2 on the right with pedicle screws and fixation bar. Advanced degenerative changes are seen at L2-L3 with disc space loss, endplate osteophytes and endplate sclerosis/lucencies, underlying infection is not excluded. Correlate clinically. Stimulator leads are seen in the lower thoracic spine. Small left and moderate right pleural effusion with bilateral lower lobe consolidation.. DICTATED BY: DEVON GEORGES MD DATE: 03/11/24 1245 REASON: sepsis, backpain, ruling out device infection ORDERING PHYSICIAN: JUAN ANTONIO ALLISON CNP PROCEDURE: L SPIN WO - CT LUMBAR SPINE W/O CONTRAST CT THORACIC SPINE W/O CONTRAST, CT LUMBAR SPINE W/O CONTRAST HISTORY: sepsis, back pain, ruling out device infection TECHNIQUE: CT THORACIC SPINE W/O CONTRAST, CT LUMBAR SPINE W/O CONTRAST. Coronal and sagittal reformats were obtained. CT was performed with one or more of the following dose reduction techniques: Automated exposure control, adjustment of the mA and/or kV according to the patient's size, or use of the iterative reconstruction technique. FINDINGS: Evaluation of the cord and discs is limited with CT. No evidence of compression fracture or dislocation. There is diffuse osteopenia degraded evaluation of the study. Multilevel degenerative changes are noted. Postop changes of posterior fusion are seen at L1-L2 on the right with pedicle screws and fixation bar. Advanced degenerative changes are seen at L2-L3 with disc space loss, endplate osteophytes and endplate sclerosis/lucencies, underlying infection is not excluded. Correlate clinically. Stimulator leads are seen in the lower thoracic spine. Small left and moderate right pleural effusion with bilateral lower lobe consolidation. The aorta is normal in caliber. No acute findings in the visualized abdomen. The visualized lungs are clear. IMPRESSION: There is diffuse osteopenia degraded evaluation of the study. Multilevel degenerative changes are noted. Postop changes of posterior fusion are seen at L1-L2 on the right with pedicle screws and fixation bar. Advanced degenerative changes are seen at L2-L3 with disc space loss, endplate osteophytes and endplate sclerosis/lucencies, underlying infection is not excluded. Correlate clinically. Stimulator leads are seen in the lower thoracic spine. Small left and moderate right pleural effusion with bilateral lower lobe consolidation.. DICTATED BY: DEVON GEORGES MD DATE: 03/11/24 1245 REASON: AMS ORDERING PHYSICIAN: NOEL DUARTE NP PROCEDURE: HEAD WO - CT HEAD/BRAIN W/O CONTRAST CT HEAD/BRAIN W/O CONTRAST INDICATION: AMS TECHNIQUE: CT HEAD/BRAIN W/O CONTRAST. CT was performed with one or more of the following dose reduction techniques: Automated exposure control, adjustment of the mA and/or kV according to the patient's size, or use of the iterative reconstruction technique. Comparison: None FINDINGS: Cerebral atrophy seen. Nonspecific periventricular and subcortical white matters changes are noted likely representing small vessel ischemic changes. No midline shift or herniation. No extra axial collection. No acute intracranial bleed. The visualized paranasal sinuses and mastoid air cells are normally aerated. IMPRESSION: Mild atrophy. No acute intracranial bleed is seen. Scattered nonspecific white matter changes DICTATED BY: DEVON GEORGES MD DATE: 03/10/24 1736 REASON: SOB ORDERING PHYSICIAN: NOEL DUARTE NP PROCEDURE: CXR1VW - CHEST 1VW INDICATION: SOB TECHNIQUE: CHEST 1VW COMPARISON: 03/08/2024 FINDINGS/IMPRESSION: Bilateral airspace consolidation suggesting vascular congestion/edema versus pneumonia. Small right effusion is seen. Cardiomegaly is seen Mild degenerative changes of the spine. The visualized upper abdomen appears unremarkable. DICTATED BY: DEVON GEORGES MD DATE: 03/10/24 1819 ASSESSMENT: Hypokalemia Acute on chronic renal failure Nephrotic syndrome Metabolic encephalopathy Sepsis without shock Pneumonia Diabetes mellitus type 2 Hypertension Obesity BMI 31.7 PAD both lower extremities Right pleural effusion with mild interstitial fibrosis Possible infectious process involving L1-L2. PLAN: Labs, diagnostic, radiologic exams reviewed and interpreted by myself and supervising physician. We have reviewed external records in detail Discontinue Vancomycin due to worsening renal function, use alternative antibiotic. Pending further recommendations from Cardiology, ID and neurosurgery Require close monitoring of renal function and electrolytes Order CBC, CMP, and electrolytes in am Follow up blood cultures BiPAP as necessary, for respiratory distress IV pressors as needed Monitor blood pressure adjust medication doses as needed Avoid hypotensive episodes May use Dilaudid 0.5 mg IV every 6 hours as needed for severe pain Monitor blood sugars Strict intake, output, and daily weight should be monitored Please renally adjust medications Avoid nephrotoxic and nonsteroidal drugs Avoid contrast if possible Will continue to monitor renal function, anemia, electrolytes Treatment plan discussed with patient Questions were answered We have discussed with the other team physicians in detail about the care plan We will continue to monitor the patient closely Total critical care time spent with patient, nursing staff, critical care team over 35 minutes ATTESTATION BY PHYSICIAN I have seen and examined the patient. I reviewed the documentation, medical decision making, and treatment plan as noted by the mid-level provider above. I agree with the findings and plan of care. LIZZY TRONCOSO MD, [facility] Mar 13, 2024 13:45
--- NOTE | 2024-03-13 14:30 | NUR ---
RECEIVED PATIENT FROM 2ND FLOOR. PATIENT IS ALERT, ORIENTED IN PERSON, TIME AND PLACE. NO SIGNS OF RESPIRATORY DISTRESS NOTED AT THIS TIME. PIV PATENT, SALINE LOCK. BOWEL SOUNDS PRESENT IN ALL FOUR ABDOMINAL QUADRANTS. ZHONG CATHETER PATENT, DRAINING TO GRAVITY.
--- NOTE | 2024-03-13 15:48 | PN ---
[facility] PROGRESS NOTE Date of Service: Mar 13, 2024 Time of Service: 15:45 SUBJECTIVE: 03/11 Pt seen at bedside, no acute events overnight. She is currently not needing pressors or intubation however she is somnolent with rigors suggesting severe infection. Will continue with current care, broad spectrum antibiotics and ICU care. Appreciate nephrology recommendations. 03/12 the patient has been seen and examined earlier this morning during my rounding, no acute events overnight, she is alert oriented x3, hemodynamically stable, saturating normal on air. Results of MRI thoracic and lumbar spine reviewed, discussed with the patient, questions answered. WBC today trending up. 03/13 the patient has been seen and examined during my rounding, downgraded to [facility] medical floor, remains alert oriented x3, BP mildly elevated, 150/81, rest of the vital signs are unremarkable. WBC trending down, today 15.9, discussed with the patient. Findings of MRI lumbar spine reviewed, discussed with the patient, all questions answered. REVIEW OF SYSTEMS 12 point ROS negative unless noted in HPI PHYSICAL EXAM GENERAL APPEARANCE: The patient is awake, alert, and oriented, in no acute cardiopulmonary distress. NEUROLOGICAL: Cranial nerves II-XII grossly intact. Motor is 5/5 in bilateral upper and lower extremities proximal to distal. No sensory deficits. HEENT: Face is symmetric. Pupils are equal and reactive. Extraocular movements are intact. NECK: Supple. No JVD. No thyromegaly. No submental, submandibular, pre- /postauricular, occipital or supraclavicular lymphadenopathy. CHEST: Normal chest expansion. No Telemetry. LUNGS: Absence of any rales, rhonchi or any wheezing. CARDIOVASCULAR: Regular. S1 and S2 normal. No appreciable rubs, murmurs or gallops. ABDOMEN: Soft, nontender, and nondistended. There is no rebound, voluntary guarding, or rigidity. : Deferred. No [place]. EXTREMITIES: Non-edematous and not cyanotic. No clubbing. Good capillary refill. SKIN: No skin breakdown. Vital Signs (last 8hr) Date Time Temp Pulse Resp B/P (MAP) Pulse Ox O2 Delivery O2 Flow Rate FiO2 03/13/24 12:34 90 16 95 03/13/24 12:19 93 16 95 03/13/24 12:09 99 20 150/81 94 03/13/24 12:04 99 20 98 03/13/24 12:00 95 Room Air* 0 03/13/24 11:49 98 20 144/89 98 03/13/24 11:42 99 16 138/90 98 03/13/24 11:34 98 20 98 03/13/24 11:19 147 13 98 03/13/24 11:06 90 16 03/13/24 11:04 144 12 97 03/13/24 10:49 90 12 98 03/13/24 10:47 93 12 171/88 94 03/13/24 10:34 97 14 91 03/13/24 10:19 98 12 86 03/13/24 10:04 89 12 100 03/13/24 10:00 89 19 99 03/13/24 09:49 98 19 94 03/13/24 09:48 96 11 154/85 93 03/13/24 09:47 99 19 164/90 93 03/13/24 09:45 98 19 99 03/13/24 09:30 98 12 94 03/13/24 09:15 99 12 99 03/13/24 09:00 99 12 96 03/13/24 08:47 100 12 163/91 92 03/13/24 08:45 101 16 92 03/13/24 08:30 89 15 86 03/13/24 08:30 88 16 N/A Room Air 03/13/24 08:15 96 14 95 03/13/24 08:02 162/91 03/13/24 08:00 95 Room Air* 0 03/13/24 08:00 95 Room Air* 0 03/13/24 08:00 92 18 97 03/13/24 07:47 92 18 150/92 94 LABS: Laboratory: Test 03/13/24 12:14 03/13/24 04:12 03/12/24 04:22 Range/Units Whole Blood Glucose 180 H 70-110 MG/DL White Blood Count 15.9 H 4.8-10.8 K/uL Red Blood Count 3.39 L 4.00-5.50 MIL/uL Hemoglobin 10.5 L 12.0-16.0 g/dL Hematocrit 32.9 L 36-48 % Mean Corpuscular Volume 97.1 79-99 fL Mean Corpuscular Hemoglobin 31.0 27.0-33.0 pg Mean Corpuscular Hemoglobin Concent 31.9 L 32.0-36.0 g/dL Red Cell Distribution Width 15.2 11.0-15.5 % Platelet Count 244 130-400 K/uL Mean Platelet Volume 11.6 H 7.5-10.5 fL Immature Granulocyte % (Auto) 0.7 0-1 % Neutrophils (%) (Auto) 81.9 H 40.0-77.0 % Lymphocytes (%) (Auto) 8.8 L 21.0-51.0 % Monocytes (%) (Auto) 7.1 3.0-13.0 % Eosinophils (%) (Auto) 1.3 0.0-8.0 % Basophils (%) (Auto) 0.2 0.0-5.0 % Neutrophils # (Auto) 13.0 H 1.8-7.7 K/uL Lymphocytes # (Auto) 1.4 1.0-4.8 K/uL Monocytes # (Auto) 1.1 H 0.1-1.0 K/uL Eosinophils # (Auto) 0.21 0.00-0.70 K/uL Basophils # (Auto) 0.03 0.00-0.20 K/uL Absolute Immature Granulocyte (auto 0.11 0-1 K/uL Nucleated Red Blood Cells 0.0 0.0-0.19 % Sodium Level 145 136-145 mmol/L Potassium Level 3.6 3.5-5.1 mmol/L Chloride Level 111 101-111 mmol/L Carbon Dioxide Level 24 21-32 mmol/L Blood Urea Nitrogen 68 H 7-18 mg/dL Creatinine 3.5 H 0.5-1.0 mg/dL Glomerular Filtration Rate Calc 14 >90 mL/min Random Glucose 160 H 70-105 mg/dL Total Calcium 8.0 L 8.5-10.1 mg/dL Phosphorus Level 6.4 H 2.5-4.9 mg/dL Iron Level 47 #L 50-170 mcg/dL Total Iron Binding Capacity 191 L 250-450 mcg/dL Percent Iron Saturation 24.6 22-44 % Ferritin 441 H 15-150 ng/mL Total Bilirubin 0.2 0.2-1.0 mg/dL Aspartate Amino Transf (AST/SGOT) 24 10-37 U/L Alanine Aminotransferase (ALT/SGPT) 23 12-78 U/L Alkaline Phosphatase 74 50-136 U/L Total Protein 5.2 L 6.0-8.3 g/dL Albumin 1.6 L 3.5-5.0 g/dL Procalcitonin 0.05 0.05-0.5 ng/mL Segmented Neutrophils % 88 H 40-70 % Band Neutrophils % 1 0-2 % Lymphocytes % (Manual) 6 L 22-44 % Monocytes % (Manual) 5 2-9 % Differential Comment MANUAL DIFFERENTIAL White Cell Morphology Comment See comments Platelet Morphology Comment ADEQUATE Red Blood Cell Morphology See comments Red Cell Morphology Comment Magnesium Level 1.80 1.80-2.40 mg/dL Parathyroid Hormone (Intact) 104.8 15-65 pg/mL Current Medications Medications (Trade) Dose Ordered Sig/Yefri Route PRN Reason Start Time Stop Time Status Last Admin Dose Admin Acetaminophen (TYLenol 325MG TAB) 650 mg Q6H PRN PO TEMPERATURE GREATER THAN 101.5 03/10/24 23:00 03/11/24 17:42 DC 03/11/24 17:35 650 MG Acetaminophen (TYLenol 325MG TAB) 650 mg Q6H PRN PO MILD PAIN (1-3) 03/11/24 17:30 04/10/24 17:29 03/12/24 15:16 650 MG Albuterol (DUOneb) 1 UDVIAL [id number] IH 03/11/24 00:00 04/10/24 00:00 03/13/24 11:06 1 UDVIAL Albuterol Sulfate (Proventil 0.083% 2.5mg/3ml) 2.5MG Q4H PRN IH SHORTNESS OF BREATH 03/10/24 23:00 04/09/24 22:59 Azithromycin 250 ml @ 250 mls/hr Q24H STAT IVPB 03/10/24 20:16 03/10/24 21:15 DC 03/10/24 20:42 250 MLS/HR Calcium Gluconate 1 gm/Sodium Chloride 100 ml @ 0 mls/hr PROTOCOL IV 03/10/24 22:00 04/09/24 21:59 Calcium Gluconate 1 gm/Sodium Chloride 100 ml @ 0 mls/hr PROTOCOL IV 03/11/24 05:00 03/11/24 04:51 DC Carvedilol (Coreg 6.25MG) 6.25 mg BIDMEALS PO 03/10/24 22:00 04/09/24 21:59 03/13/24 08:02 6.25 MG Ceftriaxone Sodium (ROCEphine 1G INJ) 1 gm ONCE STAT IVPB 03/10/24 20:16 03/10/24 20:18 DC 03/10/24 20:42 1 GM Dextrose (D50w) 50 ml AD PRN IV HYPOGLYCEMIA PROTOCOL 03/10/24 21:30 04/09/24 21:29 Doxycycline Hyclate 250 ml @ 125 mls/hr Q12H IV 03/11/24 12:00 03/11/24 10:45 DC Famotidine (Pepcid 20mg Vial) 20 mg DAILY IV 03/11/24 09:00 04/10/24 08:59 03/13/24 08:02 20 MG Furosemide (LASix 20MG VIAL) 20 mg Q8H IV 03/10/24 21:30 04/09/24 21:29 03/13/24 13:57 20 MG Gabapentin (NEURontin 100 mg CAP) 100 mg TID PO 03/12/24 10:00 04/11/24 09:59 03/13/24 13:57 100 MG Glucagon (Glucagon 1mg Kit) 1 mg AD PRN IM HYPOGLYCEMIA PROTOCOL 03/10/24 21:30 04/09/24 21:29 Heparin Sodium (Porcine) (HEParin 5,000 UNIT VIAL) 5,000 unit BID SQ 03/11/24 09:00 04/10/24 08:59 03/13/24 08:10 5,000 UNIT Heparin Sodium (Porcine) (HEParin 5,000 UNIT VIAL) 5,000 unit BID SQ 03/11/24 09:00 03/10/24 23:12 DC Hydralazine HCl (APRESOLine 20MG INJ) 10 mg Q6H PRN IV For:SBP above 160;DBP above 90 03/10/24 23:00 04/09/24 22:59 03/13/24 04:40 10 MG Hydromorphone HCl (DiLAUDid 1MG INJ) 1 mg Q4H PRN IVP SEVERE PAIN (7-10) 03/12/24 10:00 03/17/24 09:59 03/13/24 12:37 1 MG Insulin Human Regular (humuLIN R 100 UNIT/ML 3ML) INSULIN SLIDING SCAL... ACHS SQ 03/12/24 11:30 04/11/24 11:29 03/12/24 17:13 2 UNIT Insulin Human Regular (humuLIN R 100 UNIT/ML 3ML) INSULIN SLIDING SCAL... Q6H6 SQ 03/11/24 00:00 03/12/24 10:40 DC 03/11/24 18:22 3 UNIT Levofloxacin/ Dextrose 50 ml @ 50 mls/hr Q48H IVPB 03/11/24 11:00 03/21/24 10:59 03/13/24 09:53 50 MLS/HR Levofloxacin/ Dextrose 100 ml @ 100 mls/hr Q24H IV 03/11/24 11:00 03/11/24 10:53 DC Lorazepam (AtiVAN) 1 mg ONCE STAT IVP 03/10/24 17:39 03/10/24 17:40 DC 03/10/24 17:46 1 MG Meropenem (Merrem) 500 mg Q12H IVPB 03/11/24 11:00 03/21/24 10:59 03/13/24 09:53 500 MG Meropenem 500 mg/ Sodium Chloride 100 ml @ 33.333 mls/ hr Q12H IV 03/11/24 10:30 03/11/24 10:48 DC Methylprednisolone Sodium Succinate (Solu-medROL 40MG) 40 mg BID IVP 03/11/24 09:00 03/11/24 10:45 DC 03/11/24 09:36 40 MG Ondansetron HCl (zoFRAN 4MG INJ) 4 mg Q6H PRN IV NAUSEA/VOMITING 03/10/24 23:00 04/09/24 22:59 03/13/24 13:57 4 MG Piperacillin Sod/ Tazobactam Sod (Zosyn 3.375gm+NS 50ml) 3.375 gm Q12H IVPB 03/10/24 21:00 03/11/24 10:45 DC 03/11/24 09:36 3.375 GM Sodium Chloride 1,000 ml @ 500 mls/hr Q2H STAT IV 03/10/24 20:04 03/10/24 22:03 DC 03/10/24 20:40 500 MLS/HR Sodium Chloride (NS 50ml) 50 ml AD IV 03/11/24 00:00 03/10/24 21:15 DC Vancomycin HCl 250 ml @ 125 mls/hr Q48H IV 03/13/24 11:30 03/13/24 11:01 DC Vancomycin HCl (Vancomycin Protocol) 1 each AD IV 03/11/24 10:30 03/13/24 11:03 DC DIAGNOSTICS / RADIOLOGY: [ ] MR SPINAL CANAL, LUMBAR WO CON HISTORY: Pain COMPARISON: CT from 03/11/2024 TECHNIQUE: MRI of the lumbar spine was performed utilizing multiple pulse sequences in axial and sagittal plane. Patient was not given contrast through intravenous route. FINDINGS: Endplate degenerative changes with disc space narrowing are seen predominantly involving the L1-L2 level. Orthopedic fixation plates and screws are seen traversing the T12 and L1 with paramagnetic susceptibility artifacts limiting evaluation. There is disc noted at the lumbosacral junction and for numbering purposes only, this level will be designated as S1-S2. No abnormal signal intensity is seen of the visualized bony structure. No loss of vertebral height is seen. There is straightening of normal lumbar curvature which may be related to muscle spasm or positioning. Degenerative disc signals are present at all lumbar spine levels. Visualized distal conus is unremarkable. At the L2-3 level, there is spondylotic with central disc protrusion/herniation with bilateral ligamentum flavum hypertrophy causing anterior thecal sac compression with bilateral lateral recess stenosis and bilateral neural foraminal stenosis. The thecal sac measures approximately 7 mm in its anterior posterior dimension. At the L3-4 level, there is spondylotic disc with bilateral ligamentum flavum hypertrophy causing anterior thecal sac compression with bilateral lateral recess stenosis and bilateral neural foraminal stenosis. The thecal sac measures approximately 6.2 mm in its anterior posterior dimension. At the L4-5 level, there is spondylotic disc with bilateral ligamentum flavum hypertrophy causing anterior thecal sac compression with bilateral lateral recess stenosis and bilateral neural foraminal stenosis. The thecal sac measures approximately 8.4 mm in its anterior posterior dimension. At the L5-S1 level, there is spondylotic disc with bilateral ligamentum flavum hypertrophy and facet hypertrophy causing anterior thecal sac compression with bilateral lateral recess stenosis and bilateral neural foraminal stenosis. The thecal sac measures approximately 8.2 mm in its anterior posterior dimension. IMPRESSION: 1. DJD with lumbar spine spondylosis as described above. Evaluation at T12 and L1 are limited due to postop artifacts. ASSESSMENT: Metabolic encephalopathy Sepsis without shock Pneumonia Chronic renal failure. Hypokalemia, POA Diabetes mellitus type 2 last A1C 9.7 Hypertension Obesity BMI 31.7 PAD both lower extremities Right pleural effusion with mild interstitial fibrosis Possible infectious process involving L1-L2. PLAN: - patient remains admitted to the medical floor - MRI lumbar spine showing degenerative changes. - discussed with the Neurosurgery, no intervention required, can follow up as an outpatient - follow ID input and recommendations - continue closely monitoring patient's blood pressure, add hydralazine 25 mg p.o. b.i.d. - continue to follow Nephrology input and recommendation -a.m. labs Plan of action discussed with the patient, all questions answered, agreed and understood the information provided. DEYANIRA ADAMSON MD Mar 13, 2024 15:48
--- NOTE | 2024-03-13 16:30 | NUR ---
BLOOD GLUCOSE 211. COVERED WITH 3 UNITS OF HUMULIN R SUBCUTANEOUS FOLLOWING INSULIN SCALE ION PATIENTS E-MAY.
--- NOTE | 2024-03-13 19:00 | NUR ---
PLACED 20G ON RIGHT FOREARM. PIV PATENT, FLUSHED, SALINE LOCK.
[2024-03-13] MEDS: monteLUKAST sodIUM 10 MG TAB PO SCH (20:46)
[2024-03-13] MEDS: atorVAStatin 40 MG TABLET PO SCH (20:46)
[2024-03-13] MEDS: hydrALAZine 25MG TABLET PO SCH (21:43)
[2024-03-14] VITALS (16 sets, daily range): BP systolic 139–193; BP diastolic 73–107; PULSE 78–91; RESP 16–20; TEMP 97.5–98.8; O2SAT 95–98
[2024-03-14 05:31] LABS: BASOPHILS # (AUTO) 0.03 K/uL (0.00-0.20); BASOPHILS % (AUTO) 0.2 % (0.0-5.0); EOSINOPHILS % (AUTO) 4.7 % (0.0-8.0); HEMATOCRIT 33.5 % (36-48); LYMPHOCYTES # (AUTO) 1.9 K/uL (1.0-4.8); LYMPHOCYTES % (AUTO) 12.3 % (21.0-51.0); MEAN CORPUSCULAR HEMOGLOBIN 30.8 pg (27.0-33.0); MEAN CORPUSCULAR HGB CONC 32.2 g/dL (32.0-36.0); MEAN CORPUSCULAR VOLUME 95.4 fL (79-99); MONOCYTES # (AUTO) 1.3 K/uL (0.1-1.0); MONOCYTES % (AUTO) 8.5 % (3.0-13.0); NEUTROPHILS # (AUTO) 11.1 K/uL (1.8-7.7); NEUTROPHILS % (AUTO) 73.6 % (40.0-77.0); PLATELET COUNT (AUTO) 229 K/uL (130-400); RED BLOOD CELL COUNT(AUTO) 3.51 MIL/uL (4.00-5.50); RED CELL DISTRIBUTION WIDTH 14.9 % (11.0-15.5)
[2024-03-14 05:47] LABS: ALBUMIN 1.5 g/dL (3.5-5.0); BILIRUBIN,TOTAL 0.3 mg/dL (0.2-1.0); MAGNESIUM 1.7 mg/dL (1.80-2.40); PHOSPHORUS 4.9 mg/dL (2.5-4.9); POTASSIUM 3.3 mmol/L (3.5-5.1); TOTAL PROTEIN, SERUM 4.9 g/dL (6.0-8.3)
[2024-03-14] MEDS: Cholecalciferol (Vitamin D3) 1 CAP PO SCH (09:00)
[2024-03-14] MEDS: cloPIDOgrel 75MG TAB PO SCH (09:23)
[2024-03-14] MEDS: Vitamin B Complex/Vit C/Folic Acid PO SCH (09:24)
[2024-03-14] MEDS: PANTOPrazole 40 MG TAB DR PO SCH (09:24)
[2024-03-14] MEDS: ASPIRIN 81MG CHEW TAB PO SCH (09:24)
[2024-03-14] MEDS: PoTASSium chloRIDE 20MEQ ER 20 MEQ ERTAB PO ONE (09:24)
[2024-03-14] MEDS: MAGNESIUM 2GM PREMIX 50ML 50 ML IV SCH (09:25)
--- NOTE | 2024-03-14 12:28 | PN ---
[facility] PROGRESS NOTE Date of Service: Mar 14, 2024 Time of Service: 12:27 SUBJECTIVE: 03/11 Pt seen at bedside, no acute events overnight. She is currently not needing pressors or intubation however she is somnolent with rigors suggesting severe infection. Will continue with current care, broad spectrum antibiotics and ICU care. Appreciate nephrology recommendations. 03/12 the patient has been seen and examined earlier this morning during my rounding, no acute events overnight, she is alert oriented x3, hemodynamically stable, saturating normal on air. Results of MRI thoracic and lumbar spine reviewed, discussed with the patient, questions answered. WBC today trending up. 03/13 the patient has been seen and examined during my rounding, downgraded to [facility] medical floor, remains alert oriented x3, BP mildly elevated, 150/81, rest of the vital signs are unremarkable. WBC trending down, today 15.9, discussed with the patient. Findings of MRI lumbar spine reviewed, discussed with the patient, all questions answered. 03/14 the patient has been seen and examined during my rounding, she remains comfortably in bed, hemodynamically stable, afebrile, WBC slowly trending down. Getting good pain control with current medical management, no family members at bedside during my visit. REVIEW OF SYSTEMS 12 point ROS negative unless noted in HPI PHYSICAL EXAM GENERAL APPEARANCE: The patient is awake, alert, and oriented, in no acute card iopulmonary distress. NEUROLOGICAL: Cranial nerves II-XII grossly intact. Motor is 5/5 in bilateral upper and lower extremities proximal to distal. No sensory deficits. HEENT: Face is symmetric. Pupils are equal and reactive. Extraocular movements are intact. NECK: Supple. No JVD. No thyromegaly. No submental, submandibular, pre- /postauricular, occipital or supraclavicular lymphadenopathy. CHEST: Normal chest expansion. No Telemetry. LUNGS: Absence of any rales, rhonchi or any wheezing. CARDIOVASCULAR: Regular. S1 and S2 normal. No appreciable rubs, murmurs or gallops. ABDOMEN: Soft, nontender, and nondistended. There is no rebound, voluntary guarding, or rigidity. : Deferred. No [place]. EXTREMITIES: Non-edematous and not cyanotic. No clubbing. Good capillary refill. SKIN: No skin breakdown. Vital Signs (last 8hr) Date Time Temp Pulse Resp B/P (MAP) Pulse Ox O2 Delivery O2 Flow Rate FiO2 03/14/24 11:40 78 18 N/A Room Air 03/14/24 11:39 78 16 03/14/24 08:00 98.8 91 18 193/107 95 Room Air 03/14/24 07:04 82 18 N/A Room Air 03/14/24 07:03 82 16 LABS: Laboratory: Test 03/14/24 11:26 03/14/24 05:20 03/13/24 04:12 Range/Units Whole Blood Glucose 160 H 70-110 MG/DL Bedside Glucose Comment Notified Nurse White Blood Count 15.0 H 4.8-10.8 K/uL Red Blood Count 3.51 L 4.00-5.50 MIL/uL Hemoglobin 10.8 L 12.0-16.0 g/dL Hematocrit 33.5 L 36-48 % Mean Corpuscular Volume 95.4 79-99 fL Mean Corpuscular Hemoglobin 30.8 27.0-33.0 pg Mean Corpuscular Hemoglobin Concent 32.2 32.0-36.0 g/dL Red Cell Distribution Width 14.9 11.0-15.5 % Platelet Count 229 130-400 K/uL Mean Platelet Volume 11.7 H 7.5-10.5 fL Immature Granulocyte % (Auto) 0.7 0-1 % Neutrophils (%) (Auto) 73.6 40.0-77.0 % Lymphocytes (%) (Auto) 12.3 L 21.0-51.0 % Monocytes (%) (Auto) 8.5 3.0-13.0 % Eosinophils (%) (Auto) 4.7 0.0-8.0 % Basophils (%) (Auto) 0.2 0.0-5.0 % Neutrophils # (Auto) 11.1 H 1.8-7.7 K/uL Lymphocytes # (Auto) 1.9 1.0-4.8 K/uL Monocytes # (Auto) 1.3 H 0.1-1.0 K/uL Eosinophils # (Auto) 0.70 0.00-0.70 K/uL Basophils # (Auto) 0.03 0.00-0.20 K/uL Absolute Immature Granulocyte (auto 0.10 0-1 K/uL Nucleated Red Blood Cells 0.0 0.0-0.19 % Sodium Level 146 H 136-145 mmol/L Potassium Level 3.3 L 3.5-5.1 mmol/L Chloride Level 111 101-111 mmol/L Carbon Dioxide Level 27 21-32 mmol/L Blood Urea Nitrogen 66 H 7-18 mg/dL Creatinine 3.0 H 0.5-1.0 mg/dL Glomerular Filtration Rate Calc 17 >90 mL/min Random Glucose 149 H 70-105 mg/dL Total Calcium 7.9 L 8.5-10.1 mg/dL Phosphorus Level 4.9 2.5-4.9 mg/dL Magnesium Level 1.70 L 1.80-2.40 mg/dL Total Bilirubin 0.3 0.2-1.0 mg/dL Aspartate Amino Transf (AST/SGOT) 31 10-37 U/L Alanine Aminotransferase (ALT/SGPT) 31 12-78 U/L Alkaline Phosphatase 94 50-136 U/L Total Protein 4.9 L 6.0-8.3 g/dL Albumin 1.5 L 3.5-5.0 g/dL Iron Level 47 #L 50-170 mcg/dL Total Iron Binding Capacity 191 L 250-450 mcg/dL Percent Iron Saturation 24.6 22-44 % Ferritin 441 H 15-150 ng/mL Procalcitonin 0.05 0.05-0.5 ng/mL Current Medications Medications (Trade) Dose Ordered Sig/Yefri Route PRN Reason Start Time Stop Time Status Last Admin Dose Admin Acetaminophen (TYLenol 325MG TAB) 650 mg Q6H PRN PO TEMPERATURE GREATER THAN 101.5 03/10/24 23:00 03/11/24 17:42 DC 03/11/24 17:35 650 MG Acetaminophen (TYLenol 325MG TAB) 650 mg Q6H PRN PO MILD PAIN (1-3) 03/11/24 17:30 04/10/24 17:29 03/13/24 17:14 650 MG Albuterol (DUOneb) 1 UDVIAL [id number] IH 03/11/24 00:00 04/10/24 00:00 03/14/24 11:37 1 UDVIAL Albuterol Sulfate (Proventil 0.083% 2.5mg/3ml) 2.5MG Q4H PRN IH SHORTNESS OF BREATH 03/10/24 23:00 04/09/24 22:59 Aspirin (Aspirin 81mg Chew Tab) 81 mg DAILY PO 03/14/24 09:00 04/13/24 08:59 03/14/24 09:24 81 MG Atorvastatin Calcium (LIPItor 40MG) 40 mg HS PO 03/13/24 21:00 04/12/24 20:59 03/13/24 20:46 40 MG Azithromycin 250 ml @ 250 mls/hr Q24H STAT IVPB 03/10/24 20:16 03/10/24 21:15 DC 03/10/24 20:42 250 MLS/HR Calcium Gluconate 1 gm/Sodium Chloride 100 ml @ 0 mls/hr PROTOCOL IV 03/10/24 22:00 04/09/24 21:59 Calcium Gluconate 1 gm/Sodium Chloride 100 ml @ 0 mls/hr PROTOCOL IV 03/11/24 05:00 03/11/24 04:51 DC Carvedilol (Coreg 6.25MG) 6.25 mg BIDMEALS PO 03/10/24 22:00 04/09/24 21:59 03/13/24 17:17 6.25 MG Ceftriaxone Sodium (ROCEphine 1G INJ) 1 gm ONCE STAT IVPB 03/10/24 20:16 03/10/24 20:18 DC 03/10/24 20:42 1 GM Clopidogrel Bisulfate (plaVIX 75MG) 75 mg DAILY PO 03/14/24 09:00 04/13/24 08:59 03/14/24 09:23 75 MG Dextrose (D50w) 50 ml AD PRN IV HYPOGLYCEMIA PROTOCOL 03/10/24 21:30 04/09/24 21:29 Doxycycline Hyclate 250 ml @ 125 mls/hr Q12H IV 03/11/24 12:00 03/11/24 10:45 DC Famotidine (Pepcid 20mg Vial) 20 mg DAILY IV 03/11/24 09:00 04/10/24 08:59 03/14/24 09:24 20 MG Fluticasone Propionate (FLOnase 50 mcg/ spray 16g bottle) 2 SPRAYS EACH NOST... DAILY EN 03/14/24 09:00 04/13/24 08:59 Furosemide (LASix 20MG VIAL) 20 mg Q8H IV 03/10/24 21:30 04/09/24 21:29 03/14/24 05:34 20 MG Gabapentin (NEURontin 100 mg CAP) 100 mg TID PO 03/12/24 10:00 04/11/24 09:59 03/14/24 09:24 100 MG Glucagon (Glucagon 1mg Kit) 1 mg AD PRN IM HYPOGLYCEMIA PROTOCOL 03/10/24 21:30 04/09/24 21:29 Heparin Sodium (Porcine) (HEParin 5,000 UNIT VIAL) 5,000 unit BID SQ 03/11/24 09:00 04/10/24 08:59 03/14/24 09:43 5,000 UNIT Heparin Sodium (Porcine) (HEParin 5,000 UNIT VIAL) 5,000 unit BID SQ 03/11/24 09:00 03/10/24 23:12 DC Home Med (Home Medication) Cholecalciferol (Vitamin D3) 1 CAP DAILY PO 03/14/24 09:00 04/13/24 08:59 Hydralazine HCl (APRESOLine 20MG INJ) 10 mg Q6H PRN IV For:SBP above 160;DBP above 90 03/10/24 23:00 04/09/24 22:59 03/13/24 04:40 10 MG Hydralazine HCl ([id number] TAB) 25 mg BID PO 03/13/24 21:00 04/12/24 20:59 03/14/24 09:24 25 MG Hydromorphone HCl (DiLAUDid 1MG INJ) 1 mg Q4H PRN IVP SEVERE PAIN (7-10) 03/12/24 10:00 03/17/24 09:59 03/14/24 09:32 1 MG Insulin Human Regular (humuLIN R 100 UNIT/ML 3ML) INSULIN SLIDING SCAL... ACHS SQ 03/12/24 11:30 04/11/24 11:29 03/13/24 17:21 3 UNIT Insulin Human Regular (humuLIN R 100 UNIT/ML 3ML) INSULIN SLIDING SCAL... Q6H6 SQ 03/11/24 00:00 03/12/24 10:40 DC 03/11/24 18:22 3 UNIT Levofloxacin/ Dextrose 50 ml @ 50 mls/hr Q48H IVPB 03/11/24 11:00 03/21/24 10:59 03/13/24 09:53 50 MLS/HR Levofloxacin/ Dextrose 100 ml @ 100 mls/hr Q24H IV 03/11/24 11:00 03/11/24 10:53 DC Lorazepam (AtiVAN) 1 mg ONCE STAT IVP 03/10/24 17:39 03/10/24 17:40 DC 03/10/24 17:46 1 MG Magnesium Sulfate 50 ml @ 0 mls/hr PROTOCOL IV 03/14/24 09:00 04/13/24 08:59 03/14/24 09:25 25 MLS/HR Meropenem (Merrem) 500 mg Q12H IVPB 03/11/24 11:00 03/21/24 10:59 03/14/24 11:53 500 MG Meropenem 500 mg/ Sodium Chloride 100 ml @ 33.333 mls/ hr Q12H IV 03/11/24 10:30 03/11/24 10:48 DC Methylprednisolone Sodium Succinate (Solu-medROL 40MG) 40 mg BID IVP 03/11/24 09:00 03/11/24 10:45 DC 03/11/24 09:36 40 MG Montelukast Sodium (SinguLAIR) 10 mg HS PO 03/13/24 21:00 04/12/24 20:59 03/13/24 20:46 10 MG Ondansetron HCl (zoFRAN 4MG INJ) 4 mg Q6H PRN IV NAUSEA/VOMITING 03/10/24 23:00 04/09/24 22:59 03/13/24 13:57 4 MG Pantoprazole Sodium (PROTonix 40MG TAB) 40 mg DAILY PO 03/14/24 09:00 04/13/24 08:59 03/14/24 09:24 40 MG Piperacillin Sod/ Tazobactam Sod (Zosyn 3.375gm+NS 50ml) 3.375 gm Q12H IVPB 03/10/24 21:00 03/11/24 10:45 DC 03/11/24 09:36 3.375 GM Sodium Chloride 1,000 ml @ 500 mls/hr Q2H STAT IV 03/10/24 20:04 03/10/24 22:03 DC 03/10/24 20:40 500 MLS/HR Sodium Chloride (NS 50ml) 50 ml AD IV 03/11/24 00:00 03/10/24 21:15 DC Vancomycin HCl 250 ml @ 125 mls/hr Q48H IV 03/13/24 11:30 03/13/24 11:01 DC Vancomycin HCl (Vancomycin Protocol) 1 each AD IV 03/11/24 10:30 03/13/24 11:03 DC Vitamin B Complex/ Vit C/Folic Acid (Nephrovite Tablet) 1 cap DAILY PO 03/14/24 09:00 04/13/24 08:59 03/14/24 09:24 1 CAP DIAGNOSTICS / RADIOLOGY: [ ] ASSESSMENT: Metabolic encephalopathy Sepsis without shock Pneumonia Chronic renal failure. Hypokalemia, POA Diabetes mellitus type 2 last A1C 9.7 Hypertension Obesity BMI 31.7 PAD both lower extremities Right pleural effusion with mild interstitial fibrosis Possible infectious process involving L1-L2. PLAN: - patient remains admitted to the medical floor - MRI lumbar spine showing degenerative changes. Discussed with the patient - discussed with the Neurosurgery, no intervention required, can follow up as an outpatient - continue to follow infectious disease input recommendation -continue current IV antibiotics, continue to trend WBC in a.m. - continue closely monitoring patient's blood pressure, add hydralazine 25 mg p.o. b.i.d. - continue to follow Nephrology input and recommendation -a.m. labs Plan of action discussed with the patient, all questions answered, agreed and understood the information provided. DEYANIRA ADAMSON MD Mar 14, 2024 12:28
[2024-03-14] MEDS: fluTICasone proPIONate 50MCG/SPRAY 16 GM BOTTLE EN SCH (12:48)
--- NOTE | 2024-03-14 14:17 | PN ---
NEPHROLOGY PROGRESS NOTE Date/Time Patient Seen: Mar 14, 2024 SUBJECTIVE: This is a 68 year old female with a past medical history of congestive heart failure history, hypertension, hyperlipidemia and chronic low back pain. She presented to the emergency room with complaints of altered mental status. Patient has a recent hospital admission for similar reason and was discharged on 03/07/2024 Blood culture has been negative She continues on broad-spectrum antibiotics, including vancomycin. Imaging studies were noted. Neurosurgery has been consulted for possible lumbar spines osteomyelitis She was noted to have elevated BUN/creatinine. We are consulted for renal failure. Renal function is improving Electrolytes are stable. Hemoglobin is stable at 10.5 Iron panel was noted. Has been started on Gabapentin . She was seen in the medical floor, in no acute distress She is complaining of mouth sores. Condition is critical and guarded REVIEW OF SYSTEMS: GENERAL: Positive for generalized weakness NEUROLOGIC: Negative for any blurry vision, blind spots, double vision, facial asymmetry, dysphagia, dysarthria, hemiparesis, hemisensory deficits, vertigo, ataxia. HEENT: Negative for any head trauma, neck trauma, neck stiffness, photophobia, phonophobia, sinusitis, rhinitis. CARDIAC: Negative for any chest pain, dyspnea on exertion, paroxysmal nocturnal dyspnea, peripheral edema. PULMONARY: Negative for any shortness of breath, wheezing, COPD, or TB exposure. GASTROINTESTINAL: Negative for any abdominal pain, nausea, vomiting, bright red blood per rectum, melena. GENITOURINARY: Negative for any dysuria, hematuria, incontinence. INTEGUMENTARY: Negative for any rashes, cuts, insect bites. RHEUMATOLOGIC: Negative for any joint pains, photosensitive rashes, history of vasculitis or kidney problems. HEMATOLOGIC: Negative for any abnormal bruising, frequent infections or bleeding. Vital Signs (last 8hr) Date Time Temp Pulse Resp B/P (MAP) Pulse Ox O2 Delivery O2 Flow Rate FiO2 03/12/24 12:03 82 16 03/12/24 12:00 98.4 99 23 158/85 94 Room Air 03/12/24 11:00 83 10 170/86 93 Room Air 03/12/24 10:00 82 12 174/89 96 Room Air 03/12/24 09:00 93 15 163/79 94 Room Air 03/12/24 08:16 164/68 03/12/24 08:00 95 Room Air* 0 21 03/12/24 08:00 97 17 161/94 93 Room Air 03/12/24 07:00 97.9 93 15 164/68 90 Nasal Cannula 2.0 03/12/24 06:38 92 16 03/12/24 06:38 92 16 N/Cannula Low lpm 2.0 28 PHYSICAL EXAM: GENERAL: Alert and oriented x 3. No acute distress. Well-nourished. EYES: EOMI. Anicteric. HENT: Moist mucous membranes. No scleral icterus. No cervical lymphadenopathy. LUNGS: Clear to auscultation bilaterally. No accessory muscle use. CARDIOVASCULAR: Regular rate and rhythm. No murmur. No JVD. ABDOMEN: Soft, non-tender and non-distended. No palpable masses. EXTREMITIES: No edema. Non-tender. SKIN: No rashes or lesions. Warm. NEUROLOGIC: No focal neurological deficits. CN II-XII grossly intact, but not individually tested. PSYCHIATRIC: Cooperative. Appropriate mood and affect. Current Medications Medications (Trade) Dose Ordered Sig/Yefri Route PRN Reason Start Time Stop Time Status Last Admin Dose Admin Acetaminophen (TYLenol 325MG TAB) 650 mg Q6H PRN PO TEMPERATURE GREATER THAN 101.5 03/10/24 23:00 03/11/24 17:42 DC 03/11/24 17:35 650 MG Acetaminophen (TYLenol 325MG TAB) 650 mg Q6H PRN PO MILD PAIN (1-3) 03/11/24 17:30 04/10/24 17:29 03/12/24 08:15 650 MG Albuterol (DUOneb) 1 UDVIAL [id number] IH 03/11/24 00:00 04/10/24 00:00 03/12/24 12:02 1 UDVIAL Albuterol Sulfate (Proventil 0.083% 2.5mg/3ml) 2.5MG Q4H PRN IH SHORTNESS OF BREATH 03/10/24 23:00 04/09/24 22:59 Azithromycin 250 ml @ 250 mls/hr Q24H STAT IVPB 03/10/24 20:16 03/10/24 21:15 DC 03/10/24 20:42 250 MLS/HR Calcium Gluconate 1 gm/Sodium Chloride 100 ml @ 0 mls/hr PROTOCOL IV 03/10/24 22:00 04/09/24 21:59 Calcium Gluconate 1 gm/Sodium Chloride 100 ml @ 0 mls/hr PROTOCOL IV 03/11/24 05:00 03/11/24 04:51 DC Carvedilol (Coreg 6.25MG) 6.25 mg BIDMEALS PO 03/10/24 22:00 04/09/24 21:59 03/12/24 08:16 6.25 MG Ceftriaxone Sodium (ROCEphine 1G INJ) 1 gm ONCE STAT IVPB 03/10/24 20:16 03/10/24 20:18 DC 03/10/24 20:42 1 GM Dextrose (D50w) 50 ml AD PRN IV HYPOGLYCEMIA PROTOCOL 03/10/24 21:30 04/09/24 21:29 Doxycycline Hyclate 250 ml @ 125 mls/hr Q12H IV 03/11/24 12:00 03/11/24 10:45 DC Famotidine (Pepcid 20mg Vial) 20 mg DAILY IV 03/11/24 09:00 04/10/24 08:59 03/12/24 08:16 20 MG Furosemide (LASix 20MG VIAL) 20 mg Q8H IV 03/10/24 21:30 04/09/24 21:29 03/12/24 05:44 20 MG Gabapentin (NEURontin 100 mg CAP) 100 mg TID PO 03/12/24 10:00 04/11/24 09:59 03/12/24 10:11 100 MG Glucagon (Glucagon 1mg Kit) 1 mg AD PRN IM HYPOGLYCEMIA PROTOCOL 03/10/24 21:30 04/09/24 21:29 Heparin Sodium (Porcine) (HEParin 5,000 UNIT VIAL) 5,000 unit BID SQ 03/11/24 09:00 04/10/24 08:59 03/12/24 08:18 5,000 UNIT Heparin Sodium (Porcine) (HEParin 5,000 UNIT VIAL) 5,000 unit BID SQ 03/11/24 09:00 03/10/24 23:12 DC Hydralazine HCl (APRESOLine 20MG INJ) 10 mg Q6H PRN IV For:SBP above 160;DBP above 90 03/10/24 23:00 04/09/24 22:59 03/12/24 10:12 10 MG Hydromorphone HCl (DiLAUDid 1MG INJ) 1 mg Q4H PRN IVP SEVERE PAIN (7-10) 03/12/24 10:00 03/17/24 09:59 03/12/24 10:43 1 MG Insulin Human Regular (humuLIN R 100 UNIT/ML 3ML) INSULIN SLIDING SCAL... ACHS SQ 03/12/24 11:30 04/11/24 11:29 Insulin Human Regular (humuLIN R 100 UNIT/ML 3ML) INSULIN SLIDING SCAL... Q6H6 SQ 03/11/24 00:00 03/12/24 10:40 DC 03/11/24 18:22 3 UNIT Levofloxacin/ Dextrose 50 ml @ 50 mls/hr Q48H IVPB 03/11/24 11:00 03/21/24 10:59 03/11/24 12:40 50 MLS/HR Levofloxacin/ Dextrose 100 ml @ 100 mls/hr Q24H IV 03/11/24 11:00 03/11/24 10:53 DC Lorazepam (AtiVAN) 1 mg ONCE STAT IVP 03/10/24 17:39 03/10/24 17:40 DC 03/10/24 17:46 1 MG Meropenem (Merrem) 500 mg Q12H IVPB 03/11/24 11:00 03/21/24 10:59 03/12/24 10:11 500 MG Meropenem 500 mg/ Sodium Chloride 100 ml @ 33.333 mls/ hr Q12H IV 03/11/24 10:30 03/11/24 10:48 DC Methylprednisolone Sodium Succinate (Solu-medROL 40MG) 40 mg BID IVP 03/11/24 09:00 03/11/24 10:45 DC 03/11/24 09:36 40 MG Ondansetron HCl (zoFRAN 4MG INJ) 4 mg Q6H PRN IV NAUSEA/VOMITING 03/10/24 23:00 04/09/24 22:59 03/12/24 11:55 4 MG Piperacillin Sod/ Tazobactam Sod (Zosyn 3.375gm+NS 50ml) 3.375 gm Q12H IVPB 03/10/24 21:00 03/11/24 10:45 DC 03/11/24 09:36 3.375 GM Sodium Chloride 1,000 ml @ 500 mls/hr Q2H STAT IV 03/10/24 20:04 03/10/24 22:03 DC 03/10/24 20:40 500 MLS/HR Sodium Chloride (NS 50ml) 50 ml AD IV 03/11/24 00:00 03/10/24 21:15 DC Vancomycin HCl 250 ml @ 125 mls/hr Q48H IV 03/13/24 11:30 03/23/24 11:29 Vancomycin HCl (Vancomycin Protocol) 1 each AD IV 03/11/24 10:30 03/25/24 10:29 LABORATORY: [ ] Hematology Labs: Test 03/14/24 05:20 Range/Units White Blood Count 15.0 H 4.8-10.8 K/uL Red Blood Count 3.51 L 4.00-5.50 MIL/uL Hemoglobin 10.8 L 12.0-16.0 g/dL Hematocrit 33.5 L 36-48 % Mean Corpuscular Volume 95.4 79-99 fL Mean Corpuscular Hemoglobin 30.8 27.0-33.0 pg Mean Corpuscular Hemoglobin Concent 32.2 32.0-36.0 g/dL Red Cell Distribution Width 14.9 11.0-15.5 % Platelet Count 229 130-400 K/uL Mean Platelet Volume 11.7 H 7.5-10.5 fL Immature Granulocyte % (Auto) 0.7 0-1 % Neutrophils (%) (Auto) 73.6 40.0-77.0 % Lymphocytes (%) (Auto) 12.3 L 21.0-51.0 % Monocytes (%) (Auto) 8.5 3.0-13.0 % Eosinophils (%) (Auto) 4.7 0.0-8.0 % Basophils (%) (Auto) 0.2 0.0-5.0 % Neutrophils # (Auto) 11.1 H 1.8-7.7 K/uL Lymphocytes # (Auto) 1.9 1.0-4.8 K/uL Monocytes # (Auto) 1.3 H 0.1-1.0 K/uL Eosinophils # (Auto) 0.70 0.00-0.70 K/uL Basophils # (Auto) 0.03 0.00-0.20 K/uL Absolute Immature Granulocyte (auto 0.10 0-1 K/uL Nucleated Red Blood Cells 0.0 0.0-0.19 % Chemistry Labs: Test 03/14/24 11:26 03/14/24 05:20 03/13/24 04:12 Range/Units Whole Blood Glucose 160 H 70-110 MG/DL Bedside Glucose Comment Notified Nurse Sodium Level 146 H 136-145 mmol/L Potassium Level 3.3 L 3.5-5.1 mmol/L Chloride Level 111 101-111 mmol/L Carbon Dioxide Level 27 21-32 mmol/L Blood Urea Nitrogen 66 H 7-18 mg/dL Creatinine 3.0 H 0.5-1.0 mg/dL Glomerular Filtration Rate Calc 17 >90 mL/min Random Glucose 149 H 70-105 mg/dL Total Calcium 7.9 L 8.5-10.1 mg/dL Phosphorus Level 4.9 2.5-4.9 mg/dL Magnesium Level 1.70 L 1.80-2.40 mg/dL Total Bilirubin 0.3 0.2-1.0 mg/dL Aspartate Amino Transf (AST/SGOT) 31 10-37 U/L Alanine Aminotransferase (ALT/SGPT) 31 12-78 U/L Alkaline Phosphatase 94 50-136 U/L Total Protein 4.9 L 6.0-8.3 g/dL Albumin 1.5 L 3.5-5.0 g/dL Iron Level 47 #L 50-170 mcg/dL Total Iron Binding Capacity 191 L 250-450 mcg/dL Percent Iron Saturation 24.6 22-44 % Ferritin 441 H 15-150 ng/mL Procalcitonin 0.05 0.05-0.5 ng/mL DIAGNOSTICS / RADIOLOGY: REASON: AMS ORDERING PHYSICIAN: DENA FAUST PROCEDURE: BRAIN WO - MR BRAIN WO CON MR BRAIN WO CON HISTORY: Altered mental status COMPARISON: None TECHNIQUE: MRI of the brain was performed utilizing multiple pulse sequences in axial, coronal and sagittal planes. Patient was not given contrast through intravenous route. FINDINGS: The ventricles and extraventricular CSF spaces are dilated consistent with cerebral atrophy. Nonspecific white matter changes are seen. There is no midline shift, mass effect or herniation. No subacute hemorrhage is seen. No MR evidence of acute infarct is seen in the diffusion weighted images. Cerebellar tonsils are in normal position. There are bilateral ethmoid and sphenoid sinusitis with mucoperiosteal thickening. No MR evidence of a mass lesion is seen in this noncontrast study. IMPRESSION: 1. No MR evidence of acute infarct is seen in the diffusion weighted images. Atrophy with white matter changes. DICTATED BY: GARRICK ROWLAND MD DATE: 03/12/24 1655 REASON: PNEUMONIA ORDERING PHYSICIAN: YUE AKERS MD PROCEDURE: CHEST WO - CT CHEST W/O CONTRAST CT CHEST W/O CONTRAST HISTORY: Pneumonia COMPARISON: None TECHNIQUE: Multiple sequential axial images of the chest were obtained from the thoracic inlet through upper abdomen. Patient was not given contrast through intravenous route. FINDINGS: There are bilateral pleural effusions with compressive atelectasis. Coronary arterial calcifications are seen. Gallbladder is distended. There is mild anasarca. No pleural effusion or pericardial effusion is seen. There is no evidence of pneumothorax. There are normal size mediastinal and hilar lymph nodes. The heart is not enlarged. Degenerative changes of the thoracolumbar spine are present. There is no evidence of adrenal nodule. IMPRESSION: 1. Mild to moderate bilateral pleural effusions with compressive atelectasis. CT was performed with one or more following dose reduction techniques: automated exposure control, adjustment of the mA and kv according to patient's size, or use of a iterative reconstruction technique. DICTATED BY: GARRICK ROWLAND MD DATE: 03/12/24 1715 REASON: Rule out ostemyelitis ORDERING PHYSICIAN: JUAN ANTONIO ALLISON CNP PROCEDURE: L SPN WO - MR SPINAL CANAL, LUMBAR WO CON MR SPINAL CANAL, LUMBAR WO CON HISTORY: Pain COMPARISON: CT from 03/11/2024 TECHNIQUE: MRI of the lumbar spine was performed utilizing multiple pulse sequences in axial and sagittal plane. Patient was not given contrast through intravenous route. FINDINGS: Endplate degenerative changes with disc space narrowing are seen predominantly involving the L1-L2 level. Orthopedic fixation plates and screws are seen traversing the T12 and L1 with paramagnetic susceptibility artifacts limiting evaluation. There is disc noted at the lumbosacral junction and for numbering purposes only, this level will be designated as S1-S2. No abnormal signal intensity is seen of the visualized bony structure. No loss of vertebral height is seen. There is straightening of normal lumbar curvature which may be related to muscle spasm or positioning. Degenerative disc signals are present at all lumbar spine levels. Visualized distal conus is unremarkable. At the L2-3 level, there is spondylotic with central disc protrusion/herniation with bilateral ligamentum flavum hypertrophy causing anterior thecal sac compression with bilateral lateral recess stenosis and bilateral neural foraminal stenosis. The thecal sac measures approximately 7 mm in its anterior posterior dimension. At the L3-4 level, there is spondylotic disc with bilateral ligamentum flavum hypertrophy causing anterior thecal sac compression with bilateral lateral recess stenosis and bilateral neural foraminal stenosis. The thecal sac measures approximately 6.2 mm in its anterior posterior dimension. At the L4-5 level, there is spondylotic disc with bilateral ligamentum flavum hypertrophy causing anterior thecal sac compression with bilateral lateral recess stenosis and bilateral neural foraminal stenosis. The thecal sac measures approximately 8.4 mm in its anterior posterior dimension. At the L5-S1 level, there is spondylotic disc with bilateral ligamentum flavum hypertrophy and facet hypertrophy causing anterior thecal sac compression with bilateral lateral recess stenosis and bilateral neural foraminal stenosis. The thecal sac measures approximately 8.2 mm in its anterior posterior dimension. IMPRESSION: 1. DJD with lumbar spine spondylosis as described above. Evaluation at T12 and L1 are limited due to postop artifacts. DICTATED BY: GARRICK ROWLAND MD DATE: 03/12/24 1650 REASON: sepsis, backpain, ruling out device infection ORDERING PHYSICIAN: JUAN ANTONIO ALLISON CNP PROCEDURE: T SPINE WO - CT THORACIC SPINE W/O CONTRAST CT THORACIC SPINE W/O CONTRAST, CT LUMBAR SPINE W/O CONTRAST HISTORY: sepsis, back pain, ruling out device infection TECHNIQUE: CT THORACIC SPINE W/O CONTRAST, CT LUMBAR SPINE W/O CONTRAST. Coronal and sagittal reformats were obtained. CT was performed with one or more of the following dose reduction techniques: Automated exposure control, adjustment of the mA and/or kV according to the patient's size, or use of the iterative reconstruction technique. FINDINGS: Evaluation of the cord and discs is limited with CT. No evidence of compression fracture or dislocation. There is diffuse osteopenia degraded evaluation of the study. Multilevel degenerative changes are noted. Postop changes of posterior fusion are seen at L1-L2 on the right with pedicle screws and fixation bar. Advanced degenerative changes are seen at L2-L3 with disc space loss, endplate osteophytes and endplate sclerosis/lucencies, underlying infection is not excluded. Correlate clinically. Stimulator leads are seen in the lower thoracic spine. Small left and moderate right pleural effusion with bilateral lower lobe consolidation. The aorta is normal in caliber. No acute findings in the visualized abdomen. The visualized lungs are clear. IMPRESSION: There is diffuse osteopenia degraded evaluation of the study. Multilevel degenerative changes are noted. Postop changes of posterior fusion are seen at L1-L2 on the right with pedicle screws and fixation bar. Advanced degenerative changes are seen at L2-L3 with disc space loss, endplate osteophytes and endplate sclerosis/lucencies, underlying infection is not excluded. Correlate clinically. Stimulator leads are seen in the lower thoracic spine. Small left and moderate right pleural effusion with bilateral lower lobe consolidation.. DICTATED BY: DEVON GEORGES MD DATE: 03/11/24 1245 REASON: sepsis, backpain, ruling out device infection ORDERING PHYSICIAN: JUAN ANTONIO ALLISON CNP PROCEDURE: L SPIN WO - CT LUMBAR SPINE W/O CONTRAST CT THORACIC SPINE W/O CONTRAST, CT LUMBAR SPINE W/O CONTRAST HISTORY: sepsis, back pain, ruling out device infection TECHNIQUE: CT THORACIC SPINE W/O CONTRAST, CT LUMBAR SPINE W/O CONTRAST. Coronal and sagittal reformats were obtained. CT was performed with one or more of the following dose reduction techniques: Automated exposure control, adjustment of the mA and/or kV according to the patient's size, or use of the iterative reconstruction technique. FINDINGS: Evaluation of the cord and discs is limited with CT. No evidence of compression fracture or dislocation. There is diffuse osteopenia degraded evaluation of the study. Multilevel degenerative changes are noted. Postop changes of posterior fusion are seen at L1-L2 on the right with pedicle screws and fixation bar. Advanced degenerative changes are seen at L2-L3 with disc space loss, endplate osteophytes and endplate sclerosis/lucencies, underlying infection is not excluded. Correlate clinically. Stimulator leads are seen in the lower thoracic spine. Small left and moderate right pleural effusion with bilateral lower lobe consolidation. The aorta is normal in caliber. No acute findings in the visualized abdomen. The visualized lungs are clear. IMPRESSION: There is diffuse osteopenia degraded evaluation of the study. Multilevel degenerative changes are noted. Postop changes of posterior fusion are seen at L1-L2 on the right with pedicle screws and fixation bar. Advanced degenerative changes are seen at L2-L3 with disc space loss, endplate osteophytes and endplate sclerosis/lucencies, underlying infection is not excluded. Correlate clinically. Stimulator leads are seen in the lower thoracic spine. Small left and moderate right pleural effusion with bilateral lower lobe consolidation.. DICTATED BY: DEVON GEORGES MD DATE: 03/11/24 1245 REASON: AMS ORDERING PHYSICIAN: NOEL DUARTE [employer] PROCEDURE: HEAD WO - CT HEAD/BRAIN W/O CONTRAST CT HEAD/BRAIN W/O CONTRAST INDICATION: AMS TECHNIQUE: CT HEAD/BRAIN W/O CONTRAST. CT was performed with one or more of the following dose reduction techniques: Automated exposure control, adjustment of the mA and/or kV according to the patient's size, or use of the iterative reconstruction technique. Comparison: None FINDINGS: Cerebral atrophy seen. Nonspecific periventricular and subcortical white matters changes are noted likely representing small vessel ischemic changes. No midline shift or herniation. No extra axial collection. No acute intracranial bleed. The visualized paranasal sinuses and mastoid air cells are normally aerated. IMPRESSION: Mild atrophy. No acute intracranial bleed is seen. Scattered nonspecific white matter changes DICTATED BY: DEVON GEORGES MD DATE: 03/10/24 1736 REASON: SOB ORDERING PHYSICIAN: NOEL DUARTE NP PROCEDURE: CXR1VW - CHEST 1VW INDICATION: SOB TECHNIQUE: CHEST 1VW COMPARISON: 03/08/2024 FINDINGS/IMPRESSION: Bilateral airspace consolidation suggesting vascular congestion/edema versus pneumonia. Small right effusion is seen. Cardiomegaly is seen Mild degenerative changes of the spine. The visualized upper abdomen appears unremarkable. DICTATED BY: DEVON GEORGES MD DATE: 03/10/24 1819 ASSESSMENT: Hypokalemia Acute on chronic renal failure Nephrotic syndrome Metabolic encephalopathy Sepsis without shock Pneumonia Diabetes mellitus type 2 Hypertension Obesity BMI 31.7 PAD both lower extremities Right pleural effusion with mild interstitial fibrosis Possible infectious process involving L1-L2. PLAN: Labs, diagnostic, radiologic exams reviewed and interpreted by myself and supervising physician. We have reviewed external records in detail Continue with low dose Gabapentin, Require close monitoring of renal function and electrolytes Order CBC, CMP, and electrolytes in am Follow blood cultures BiPAP as necessary, for respiratory distress Monitor blood pressure adjust medication doses as needed Avoid hypotensive episodes May use Dilaudid 0.5 mg IV every 6 hours as needed for severe pain Monitor blood sugars Strict intake, output, and daily weight should be monitored Please renally adjust medications Avoid nephrotoxic and nonsteroidal drugs Avoid contrast if possible Will continue to monitor renal function, anemia, electrolytes Treatment plan discussed with patient Questions were answered We have discussed with the other team physicians in detail about the care plan We will continue to monitor the patient closely ATTESTATION BY PHYSICIAN I have seen and examined the patient. I reviewed the documentation, medical decision making, and treatment plan as noted by the mid-level provider above. I agree with the findings and plan of care. LIZZY TRONCOSO MD, [facility] Mar 14, 2024 14:17
--- NOTE | 2024-03-14 16:31 | PN ---
INFECTIOUS DISEASE PROGRESS NOTE Date of Service: Mar 13, 2024 SUBJECTIVE: This is a 68-year-old female patient who was admitted with chief complaint altered mental status and muscle spasms. 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 Patient was seen and examined at bedside in room 327. Patient is awake and answering questions appropriately. Patient is afebrile, temperature is 97.9. The WBC has trended down to 15.9 today from an 18.5 yesterday. Patient voicing severe pain to the lower extremities. Patient was updated with the MRI results. Patient continues on levofloxacin and Meropenem. No growth reported yet on blood cultures. Will continue to follow patient's care. PHYSICAL EXAM EYES: Anicteric. Pupils equal and reactive. HENT: No oral thrush seen, moist Oral mucosa NECK: Supple, no JVD or thyromegaly. LUNGS: Good air entry. No rales, no rhonchi. CARDIOVASCULAR: S1, S2 regular. No murmur heard. ABDOMEN: Soft, non tender, bowel sounds present, no organomegaly CENTRAL NERVOUS SYSTEM: Awake, alert, oriented x 3. SKIN: No rashes, no swelling. LYMPHATICS: No peripheral lymphadenopathy MUSCULOSKELETAL: No joint swelling, erythema or tenderness. EXTREMITIES: No cyanosis or clubbing BACK: No deformity, no pressure ulcer. GENITOURINARY: No dysuria or hematuria. Vital Sign (Last 12 Hours) 03/14/24 03/14/24 03/14/24 03/14/24 07:03 07:04 08:00 11:39 Temp 98.8 Pulse 82 82 91 78 Resp 16 18 18 16 B/P (MAP) 193/107 Pulse Ox 95 O2 Delivery N/A Room Air Room Air FiO2 21 21 03/14/24 03/14/24 03/14/24 11:40 12:42 14:08 Pulse 78 90 Resp 18 B/P (MAP) 176/88 139/73 O2 Delivery N/A Room Air FiO2 21 Intake & Output (last 24hrs) 03/13/24 03/13/24 03/14/24 15:00 23:00 07:00 Intake Total 300 ml 100.0 ml Output Total 2100 ml 1400 ml Balance -2100 ml 300 ml -1300.0 ml LABS: Laboratory: Test 03/14/24 11:26 03/14/24 05:20 03/13/24 04:12 Range/Units Whole Blood Glucose 160 H 70-110 MG/DL Bedside Glucose Comment Notified Nurse White Blood Count 15.0 H 4.8-10.8 K/uL Red Blood Count 3.51 L 4.00-5.50 MIL/uL Hemoglobin 10.8 L 12.0-16.0 g/dL Hematocrit 33.5 L 36-48 % Mean Corpuscular Volume 95.4 79-99 fL Mean Corpuscular Hemoglobin 30.8 27.0-33.0 pg Mean Corpuscular Hemoglobin Concent 32.2 32.0-36.0 g/dL Red Cell Distribution Width 14.9 11.0-15.5 % Platelet Count 229 130-400 K/uL Mean Platelet Volume 11.7 H 7.5-10.5 fL Immature Granulocyte % (Auto) 0.7 0-1 % Neutrophils (%) (Auto) 73.6 40.0-77.0 % Lymphocytes (%) (Auto) 12.3 L 21.0-51.0 % Monocytes (%) (Auto) 8.5 3.0-13.0 % Eosinophils (%) (Auto) 4.7 0.0-8.0 % Basophils (%) (Auto) 0.2 0.0-5.0 % Neutrophils # (Auto) 11.1 H 1.8-7.7 K/uL Lymphocytes # (Auto) 1.9 1.0-4.8 K/uL Monocytes # (Auto) 1.3 H 0.1-1.0 K/uL Eosinophils # (Auto) 0.70 0.00-0.70 K/uL Basophils # (Auto) 0.03 0.00-0.20 K/uL Absolute Immature Granulocyte (auto 0.10 0-1 K/uL Nucleated Red Blood Cells 0.0 0.0-0.19 % Sodium Level 146 H 136-145 mmol/L Potassium Level 3.3 L 3.5-5.1 mmol/L Chloride Level 111 101-111 mmol/L Carbon Dioxide Level 27 21-32 mmol/L Blood Urea Nitrogen 66 H 7-18 mg/dL Creatinine 3.0 H 0.5-1.0 mg/dL Glomerular Filtration Rate Calc 17 >90 mL/min Random Glucose 149 H 70-105 mg/dL Total Calcium 7.9 L 8.5-10.1 mg/dL Phosphorus Level 4.9 2.5-4.9 mg/dL Magnesium Level 1.70 L 1.80-2.40 mg/dL Total Bilirubin 0.3 0.2-1.0 mg/dL Aspartate Amino Transf (AST/SGOT) 31 10-37 U/L Alanine Aminotransferase (ALT/SGPT) 31 12-78 U/L Alkaline Phosphatase 94 50-136 U/L Total Protein 4.9 L 6.0-8.3 g/dL Albumin 1.5 L 3.5-5.0 g/dL Iron Level 47 #L 50-170 mcg/dL Total Iron Binding Capacity 191 L 250-450 mcg/dL Percent Iron Saturation 24.6 22-44 % Ferritin 441 H 15-150 ng/mL Procalcitonin 0.05 0.05-0.5 ng/mL ASSESSMENT: Leukocytosis. Acute on chronic renal failure. Heart failure. Multifactorial Encephalopathy. Diabetes mellitus. Iron-deficiency Anemia. Bilateral pleural effusion. Anterior thecal sac compression on lumbar MRI. PLAN: Continue levofloxacin. Continue Meropenem. Continue GI prophylaxis. Patient will need to follow up with neurosurgeon as outpatient. Continue pain management. Continue monitoring glucose levels. We will follow up on the cultures. This case was reviewed and discussed with my supervising physician and the above assessment and plan was formulated and agreed upon. ATTESTATION BY PHYSICIAN I have seen and examined the patient. I reviewed the documentation, medical decision making, and treatment plan as noted by the mid-level provider above. I agree with the findings and plan of care. YUE AKERS MD, [facility]IRTA L [facility] Mar 14, 2024 16:31
--- NOTE | 2024-03-14 16:50 | PN ---
INFECTIOUS DISEASE PROGRESS NOTE Date of Service: Mar 14, 2024 SUBJECTIVE: This is a 68-year-old female patient who was admitted with chief complaint altered mental status and muscle spasms. 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 Patient was seen and examined at bedside in room 327. Patient is awake and answering questions appropriately. No fever reported within the last 24 hours, temperature is 98.8 and the WBC is 15.0. Patient continues on levofloxacin and Meropenem. No reports of nausea or vomiting. Will continue to follow patient's care. PHYSICAL EXAM EYES: Anicteric. Pupils equal and reactive. HENT: No oral thrush seen, moist Oral mucosa. NECK: Supple, no JVD or thyromegaly. LUNGS: Good air entry. No rales, no rhonchi. CARDIOVASCULAR: S1, S2 regular. No murmur heard. ABDOMEN: Soft, non tender, bowel sounds present, no organomegaly. CENTRAL NERVOUS SYSTEM: Awake, alert, oriented x 3. SKIN: No rashes, no swelling. LYMPHATICS: No peripheral lymphadenopathy. MUSCULOSKELETAL: No joint swelling, erythema or tenderness. EXTREMITIES: No cyanosis or clubbing. BACK: No deformity, no pressure ulcer. GENITOURINARY: No dysuria or hematuria. Vital Sign (Last 12 Hours) 03/14/24 03/14/24 03/14/24 03/14/24 07:03 07:04 08:00 11:39 Temp 98.8 Pulse 82 82 91 78 Resp 16 18 18 16 B/P (MAP) 193/107 Pulse Ox 95 O2 Delivery N/A Room Air Room Air FiO2 21 21 03/14/24 03/14/24 03/14/24 11:40 12:42 14:08 Pulse 78 90 Resp 18 B/P (MAP) 176/88 139/73 O2 Delivery N/A Room Air FiO2 21 Intake & Output (last 24hrs) 03/13/24 03/13/24 03/14/24 15:00 23:00 07:00 Intake Total 300 ml 100.0 ml Output Total 2100 ml 1400 ml Balance -2100 ml 300 ml -1300.0 ml LABS: Laboratory: Test 03/14/24 11:26 03/14/24 05:20 03/13/24 04:12 Range/Units Whole Blood Glucose 160 H 70-110 MG/DL Bedside Glucose Comment Notified Nurse White Blood Count 15.0 H 4.8-10.8 K/uL Red Blood Count 3.51 L 4.00-5.50 MIL/uL Hemoglobin 10.8 L 12.0-16.0 g/dL Hematocrit 33.5 L 36-48 % Mean Corpuscular Volume 95.4 79-99 fL Mean Corpuscular Hemoglobin 30.8 27.0-33.0 pg Mean Corpuscular Hemoglobin Concent 32.2 32.0-36.0 g/dL Red Cell Distribution Width 14.9 11.0-15.5 % Platelet Count 229 130-400 K/uL Mean Platelet Volume 11.7 H 7.5-10.5 fL Immature Granulocyte % (Auto) 0.7 0-1 % Neutrophils (%) (Auto) 73.6 40.0-77.0 % Lymphocytes (%) (Auto) 12.3 L 21.0-51.0 % Monocytes (%) (Auto) 8.5 3.0-13.0 % Eosinophils (%) (Auto) 4.7 0.0-8.0 % Basophils (%) (Auto) 0.2 0.0-5.0 % Neutrophils # (Auto) 11.1 H 1.8-7.7 K/uL Lymphocytes # (Auto) 1.9 1.0-4.8 K/uL Monocytes # (Auto) 1.3 H 0.1-1.0 K/uL Eosinophils # (Auto) 0.70 0.00-0.70 K/uL Basophils # (Auto) 0.03 0.00-0.20 K/uL Absolute Immature Granulocyte (auto 0.10 0-1 K/uL Nucleated Red Blood Cells 0.0 0.0-0.19 % Sodium Level 146 H 136-145 mmol/L Potassium Level 3.3 L 3.5-5.1 mmol/L Chloride Level 111 101-111 mmol/L Carbon Dioxide Level 27 21-32 mmol/L Blood Urea Nitrogen 66 H 7-18 mg/dL Creatinine 3.0 H 0.5-1.0 mg/dL Glomerular Filtration Rate Calc 17 >90 mL/min Random Glucose 149 H 70-105 mg/dL Total Calcium 7.9 L 8.5-10.1 mg/dL Phosphorus Level 4.9 2.5-4.9 mg/dL Magnesium Level 1.70 L 1.80-2.40 mg/dL Total Bilirubin 0.3 0.2-1.0 mg/dL Aspartate Amino Transf (AST/SGOT) 31 10-37 U/L Alanine Aminotransferase (ALT/SGPT) 31 12-78 U/L Alkaline Phosphatase 94 50-136 U/L Total Protein 4.9 L 6.0-8.3 g/dL Albumin 1.5 L 3.5-5.0 g/dL Iron Level 47 #L 50-170 mcg/dL Total Iron Binding Capacity 191 L 250-450 mcg/dL Percent Iron Saturation 24.6 22-44 % Ferritin 441 H 15-150 ng/mL Procalcitonin 0.05 0.05-0.5 ng/mL ASSESSMENT: Leukocytosis. Acute on chronic renal failure. Heart failure. Multifactorial Encephalopathy. Diabetes mellitus. Iron-deficiency Anemia. Bilateral pleural effusion. Anterior thecal sac compression on lumbar MRI. PLAN: Continue levofloxacin. Continue Meropenem. Continue GI prophylaxis. Patient will need to follow up with neurosurgeon as outpatient. Continue pain management. Continue monitoring glucose levels. We will follow up on the cultures. This case was reviewed and discussed with my supervising physician and the above assessment and plan was formulated and agreed upon. ATTESTATION BY PHYSICIAN I have seen and examined the patient. I reviewed the documentation, medical decision making, and treatment plan as noted by the mid-level provider above. I agree with the findings and plan of care. YUE AKERS MD, MIRTA L [employer] Mar 14, 2024 16:50
--- NOTE | 2024-03-14 17:14 | CONS ---
DOS late entry HPI: 68 yo female with pmhx of htn, dmi, padx with mutiple interventions done in the past, present to the ed bilater leg weakness she was found to have possible abcess to the spine we have been consult for concern for AMS pt denies cp or sob on 10/2023 pt underwent cadx workup in office which was negative pmhx as per pt surgical history right fem-pop bypass social history no tobacco us or alcohol use ROS: General: No malaise or fever. Neurological: No fainting episodes or seizures. HEENT: No nasal congestion or nasal secretion. Cardiac: No chest pain or palpitations. Gastrointestinal: No vomiting or diarrhea. Skin: No rashes or lesions. Hematological: No bruises or bleeding. Musculoskeletal: No joint pains or arthralgias right lower ext pain Psychiatric: No depression or panic attacks. Patient History: Carcinomas FATHER, , Age: 85 (lungs ) Cardiovascular disease MOTHER, , Age: 92 Diabetes mellitus MOTHER, , Age: 92 FATHER, , Age: 85 BROTHER SISTER SISTER SISTER Hypertension MOTHER, , Age: 92 SISTER SISTER SISTER No Family History of: Alzheimer's disease Asthma Chronic obstructive pulmonary disease Completed stroke Immunocompromised state Sudden Unknown Vitals/Labs PHYSICAL EXAM GENERAL APPEARANCE: The patient is awake, alert, and oriented, in no acute cardiopulmonary distress. NEUROLOGICAL: Cranial nerves II-XII grossly intact. Motor is 5/5 in bilateral upper and lower extremities proximal to distal. No sensory deficits. HEENT: Face is symmetric. Pupils are equal and reactive. Extraocular movements are intact. NECK: Supple. No JVD. No thyromegaly. No submental, submandibular, pre- /postauricular, occipital or supraclavicular lymphadenopathy. CHEST: Normal chest expansion. No Telemetry. LUNGS: Absence of any rales, rhonchi or any wheezing. CARDIOVASCULAR: Regular. S1 and S2 normal. No appreciable rubs, murmurs or gallops. ABDOMEN: Soft, nontender, and nondistended. There is no rebound, voluntary guarding, or rigidity. : Deferred. No [place]. EXTREMITIES: Non-edematous and not cyanotic. No clubbing. Good capillary refill. SKIN: No skin breakdown Vital Signs Date Time Temp Pulse Resp B/P (MAP) Pulse Ox O2 Delivery O2 Flow Rate FiO2 03/14/24 14:08 90 139/73 03/14/24 11:40 18 N/A Room Air 21 03/14/24 08:00 98.8 95 03/13/24 20:46 0 Laboratory Tests 03/14/24 05:20 Allergies: Coded Allergies: doxycycline (Unverified Allergy, Unknown, SWELLING, 03/11/24) iodine (Unverified Allergy, Unknown, Hives, itching, 03/11/24) Medications Current Medications Lorazepam 2 mg STK-MED ONCE .ROUTE; Start 03/10/24 at 17:38; Stop 03/10/24 at 17:39; Status DC Lorazepam 1 mg ONCE STAT IVP Last administered on 03/10/24at 17:46; Start 03/10/24 at 17:39; Stop 03/10/24 at 17:40; Status DC Sodium Chloride 1,000 ml @ 500 mls/hr Q2H STAT IV Last administered on 03/10/24at 20:40; Start 03/10/24 at 20:04; Stop 03/10/24 at 22:03; Status DC Ceftriaxone Sodium 1 gm ONCE STAT IVPB Last administered on 03/10/24at 20:42; Start 03/10/24 at 20:16; Stop 03/10/24 at 20:18; Status DC Azithromycin 250 ml @ 250 mls/hr Q24H STAT IVPB Last administered on 03/10/24at 20:42; Start 03/10/24 at 20:16; Stop 03/10/24 at 21:15; Status DC Piperacillin Sod/ Tazobactam Sod 3.375 gm Q12H IVPB Last administered on 03/11/24at 09:36; Start 03/10/24 at 21:00; Stop 03/11/24 at 10:45; Status DC Sodium Chloride 50 ml AD IV; Start 03/11/24 at 00:00; Stop 03/10/24 at 21:15; Status DC Sodium Chloride 50 ml 2042 ONCE IV; Start 03/10/24 at 20:42; Stop 03/10/24 at 21:14; Status DC Doxycycline Hyclate 250 ml @ 125 mls/hr Q12H IV; Start 03/11/24 at 12:00; Stop 03/11/24 at 10:45; Status DC Albuterol 1 UDVIAL [id number] IH Last administered on 03/14/24at 11:37; Start 03/11/24 at 00:00; Stop 04/10/24 at 00:00 Furosemide 20 mg Q8H IV Last administered on 03/14/24at 12:42; Start 03/10/24 at 21:30; Stop 04/09/24 at 21:29 Carvedilol 6.25 mg BIDMEALS PO Last administered on 03/14/24at 12:42; Start 03/10/24 at 22:00; Stop 04/09/24 at 21:59 Insulin Human Regular INSULIN SLIDING SCAL... Q6H6 SQ Last administered on 03/11/24at 18:22; Start 03/11/24 at 00:00; Stop 03/12/24 at 10:40; Status DC Dextrose 50 ml AD PRN IV; Start 03/10/24 at 21:30; Stop 04/09/24 at 21:29 Glucagon 1 mg AD PRN IM; Start 03/10/24 at 21:30; Stop 04/09/24 at 21:29 Methylprednisolone Sodium Succinate 125 mg ONCE ONCE IVP Last administered on 03/10/24at 22:11; Start 03/10/24 at 22:00; Stop 03/10/24 at 22:01; Status DC Methylprednisolone Sodium Succinate 40 mg BID IVP Last administered on 03/11/24at 09:36; Start 03/11/24 at 09:00; Stop 03/11/24 at 10:45; Status DC Famotidine 20 mg DAILY IV Last administered on 03/14/24at 09:24; Start 03/11/24 at 09:00; Stop 04/10/24 at 08:59 Calcium Gluconate 1 gm/Sodium Chloride 100 ml @ 0 mls/hr PROTOCOL IV; Start 03/10/24 at 22:00; Stop 04/09/24 at 21:59 Albuterol Sulfate 2.5MG Q4H PRN IH; Start 03/10/24 at 23:00; Stop 04/09/24 at 22:59 Acetaminophen 650 mg Q6H PRN PO Last administered on 03/11/24at 17:35; Start 03/10/24 at 23:00; Stop 03/11/24 at 17:42; Status DC Hydralazine HCl 10 mg Q6H PRN IV Last administered on 03/14/24at 12:43; Start 03/10/24 at 23:00; Stop 04/09/24 at 22:59 Heparin Sodium (Porcine) 5,000 unit BID SQ Last administered on 03/14/24at 09:43; Start 03/11/24 at 09:00; Stop 04/10/24 at 08:59 Ondansetron HCl 4 mg Q6H PRN IV Last administered on 03/14/24at 12:42; Start 03/10/24 at 23:00; Stop 04/09/24 at 22:59 Heparin Sodium (Porcine) 5,000 unit BID SQ; Start 03/11/24 at 09:00; Stop 03/10/24 at 23:12; Status DC Calcium Gluconate 1 gm/Sodium Chloride 100 ml @ 0 mls/hr PROTOCOL IV; Start 03/11/24 at 05:00; Stop 03/11/24 at 04:51; Status DC Meropenem 500 mg/ Sodium Chloride 100 ml @ 33.333 mls/ hr Q12H IV; Start 03/11/24 at 10:30; Stop 03/11/24 at 10:48; Status DC Vancomycin HCl 1 each AD IV; Start 03/11/24 at 10:30; Stop 03/13/24 at 11:03; Status DC Levofloxacin/ Dextrose 100 ml @ 100 mls/hr Q24H IV; Start 03/11/24 at 11:00; Stop 03/11/24 at 10:53; Status DC Meropenem 500 mg Q12H IVPB Last administered on 03/14/24at 11:53; Start 03/11/24 at 11:00; Stop 03/21/24 at 10:59 Levofloxacin/ Dextrose 50 ml @ 50 mls/hr Q48H IVPB Last administered on 03/13/24at 09:53; Start 03/11/24 at 11:00; Stop 03/21/24 at 10:59 Vancomycin HCl 250 ml @ 125 mls/hr ONCE ONCE IV; Start 03/11/24 at 11:00; Stop 03/11/24 at 11:03; Status DC Vancomycin HCl 250 ml @ 125 mls/hr ONCE ONCE IV Last administered on 03/11/24at 12:40; Start 03/11/24 at 11:30; Stop 03/11/24 at 13:29; Status DC Vancomycin HCl 250 ml @ 125 mls/hr Q48H IV; Start 03/13/24 at 11:30; Stop 03/13/24 at 11:01; Status DC Acetaminophen 650 mg Q6H PRN PO Last administered on 03/13/24at 17:14; Start 03/11/24 at 17:30; Stop 04/10/24 at 17:29 Potassium Chloride 20 meq ONCE ONCE PO Last administered on 03/12/24at 09:18; Start 03/12/24 at 09:00; Stop 03/12/24 at 09:03; Status DC Gabapentin 100 mg TID PO Last administered on 03/14/24at 14:57; Start 03/12/24 at 10:00; Stop 04/11/24 at 09:59 Hydromorphone HCl 1 mg Q4H PRN IVP Last administered on 03/14/24at 09:32; Start 03/12/24 at 10:00; Stop 03/17/24 at 09:59 Insulin Human Regular INSULIN SLIDING SCAL... ACHS SQ Last administered on 03/13/24at 17:21; Start 03/12/24 at 11:30; Stop 04/11/24 at 11:29 Aspirin 81 mg DAILY PO Last administered on 03/14/24at 09:24; Start 03/14/24 at 09:00; Stop 04/13/24 at 08:59 Atorvastatin Calcium 40 mg HS PO Last administered on 03/13/24at 20:46; Start 03/13/24 at 21:00; Stop 04/12/24 at 20:59 Clopidogrel Bisulfate 75 mg DAILY PO Last administered on 03/14/24at 09:23; Start 03/14/24 at 09:00; Stop 04/13/24 at 08:59 Montelukast Sodium 10 mg HS PO Last administered on 03/13/24at 20:46; Start 03/13/24 at 21:00; Stop 04/12/24 at 20:59 Home Med Cholecalciferol (Vitamin D3) 1 CAP DAILY PO; Start 03/14/24 at 09:00; Stop 04/13/24 at 08:59 Fluticasone Propionate 2 SPRAYS EACH NOST... DAILY EN; Start 03/14/24 at 09:00; Stop 04/13/24 at 08:59 Pantoprazole Sodium 40 mg DAILY PO Last administered on 03/14/24at 09:24; Start 03/14/24 at 09:00; Stop 04/13/24 at 08:59 Vitamin B Complex/ Vit C/Folic Acid 1 cap DAILY PO Last administered on 03/14/24at 09:24; Start 03/14/24 at 09:00; Stop 04/13/24 at 08:59 Hydralazine HCl 25 mg BID PO Last administered on 03/14/24at 09:24; Start 03/13/24 at 21:00; Stop 04/12/24 at 20:59 Potassium Chloride 20 meq ONCE ONCE PO Last administered on 03/14/24at 09:24; Start 03/14/24 at 09:00; Stop 03/14/24 at 09:01; Status DC Magnesium Sulfate 50 ml @ 0 mls/hr PROTOCOL IV Last administered on 03/14/24at 09:25; Start 03/14/24 at 09:00; Stop 04/13/24 at 08:59 ASSESSMENT: 1. normal ef 2. renal failure 3. peripheral arterial disease with multiple intervention in the past 4. htn, hld, dm ii 5. concern for spinal abscess PLAN: form a cardiovascular standpoint pt had echo that reveal normal ef on last admission pt has negative non invasive work in our office 10/2023 - no need for repeat cadx workp at this time at this time pt has no anginal sx of cp or sob we have new recommendations to make at this time ILIANA KILPATRICK PAC Mar 14, 2024 17:14
[2024-03-14] MEDS: acetaMINOPHEN WITH coDEINE 1 TAB TAB PO PRN (17:48)
[2024-03-15] VITALS (11 sets, daily range): BP systolic 131–190; BP diastolic 69–90; PULSE 64–93; RESP 16–20; TEMP 97.9–98.4; O2SAT 94–98
[2024-03-15 05:28] LABS: HEMATOCRIT 32.5 % (36-48); MEAN CORPUSCULAR HEMOGLOBIN 30.6 pg (27.0-33.0); MEAN CORPUSCULAR VOLUME 95.6 fL (79-99); RED BLOOD CELL COUNT(AUTO) 3.4 MIL/uL (4.00-5.50); RED CELL DISTRIBUTION WIDTH 14.7 % (11.0-15.5)
[2024-03-15 05:45] LABS: ALBUMIN 1.4 g/dL (3.5-5.0); BILIRUBIN,TOTAL 0.3 mg/dL (0.2-1.0); CREATININE 2.9 mg/dL (0.5-1.0); MAGNESIUM 2.2 mg/dL (1.80-2.40); POTASSIUM 3.4 mmol/L (3.5-5.1); TOTAL PROTEIN, SERUM 4.8 g/dL (6.0-8.3)
--- NOTE | 2024-03-15 08:42 | PN ---
[facility] PROGRESS NOTE Date of Service: Mar 15, 2024 Time of Service: 08:42 SUBJECTIVE: 03/11 Pt seen at bedside, no acute events overnight. She is currently not needing pressors or intubation however she is somnolent with rigors suggesting severe infection. Will continue with current care, broad spectrum antibiotics and ICU care. Appreciate nephrology recommendations. 03/12 the patient has been seen and examined earlier this morning during my rounding, no acute events overnight, she is alert oriented x3, hemodynamically stable, saturating normal on air. Results of MRI thoracic and lumbar spine reviewed, discussed with the patient, questions answered. WBC today trending up. 03/13 the patient has been seen and examined during my rounding, downgraded to [facility] medical floor, remains alert oriented x3, BP mildly elevated, 150/81, rest of the vital signs are unremarkable. WBC trending down, today 15.9, discussed with the patient. Findings of MRI lumbar spine reviewed, discussed with the patient, all questions answered. 03/14 the patient has been seen and examined during my rounding, she remains comfortably in bed, hemodynamically stable, afebrile, WBC slowly trending down. Getting good pain control with current medical management, no family members at bedside during my visit. 03/15 patient is seen and examined, comfortably in bed, no acute events overnight, alert and oriented x3, following commands, hemodynamically stable, getting IV antibiotics. The patient with persistent leukocytosis 14.0. Denies chest pain, no shortness a breath, no nausea, no vomiting. Patient with [place] catheter in place, we will remove today. REVIEW OF SYSTEMS 12 point ROS negative unless noted in HPI PHYSICAL EXAM GENERAL APPEARANCE: The patient is awake, alert, and oriented, in no acute cardiopulmonary distress. NEUROLOGICAL: Cranial nerves II-XII grossly intact. Motor is 5/5 in bilateral upper and lower extremities proximal to distal. No sensory deficits. HEENT: Face is symmetric. Pupils are equal and reactive. Extraocular movements are intact. NECK: Supple. No JVD. No thyromegaly. No submental, submandibular, pre- /postauricular, occipital or supraclavicular lymphadenopathy. CHEST: Normal chest expansion. No Telemetry. LUNGS: Absence of any rales, rhonchi or any wheezing. CARDIOVASCULAR: Regular. S1 and S2 normal. No appreciable rubs, murmurs or gallops. ABDOMEN: Soft, nontender, and nondistended. There is no rebound, voluntary guarding, or rigidity. : Deferred. No [place]. EXTREMITIES: Non-edematous and not cyanotic. No clubbing. Good capillary refill. SKIN: No skin breakdown. Vital Signs (last 8hr) Date Time Temp Pulse Resp B/P (MAP) Pulse Ox O2 Delivery O2 Flow Rate FiO2 03/15/24 06:30 80 18 N/A Room Air 21 03/15/24 06:30 77 18 03/15/24 04:52 98.2 78 18 141/76 95 Room Air LABS: Laboratory: Test 03/15/24 05:46 03/15/24 04:39 03/14/24 16:48 03/14/24 05:20 Range/Units Whole Blood Glucose 132 H 70-110 MG/DL White Blood Count 14.0 H 4.8-10.8 K/uL Red Blood Count 3.40 L 4.00-5.50 MIL/uL Hemoglobin 10.4 L 12.0-16.0 g/dL Hematocrit 32.5 L 36-48 % Mean Corpuscular Volume 95.6 79-99 fL Mean Corpuscular Hemoglobin 30.6 27.0-33.0 pg Mean Corpuscular Hemoglobin Concent 32.0 32.0-36.0 g/dL Red Cell Distribution Width 14.7 11.0-15.5 % Platelet Count 237 130-400 K/uL Mean Platelet Volume 12.2 H 7.5-10.5 fL Nucleated Red Blood Cells 0.0 0.0-0.19 % Sodium Level 147 H 136-145 mmol/L Potassium Level 3.4 L 3.5-5.1 mmol/L Chloride Level 112 H 101-111 mmol/L Carbon Dioxide Level 29 21-32 mmol/L Blood Urea Nitrogen 65 H 7-18 mg/dL Creatinine 2.9 H 0.5-1.0 mg/dL Glomerular Filtration Rate Calc 17 >90 mL/min Random Glucose 134 H 70-105 mg/dL Total Calcium 7.9 L 8.5-10.1 mg/dL Phosphorus Level 5.0 H 2.5-4.9 mg/dL Magnesium Level 2.20 1.80-2.40 mg/dL Total Bilirubin 0.3 0.2-1.0 mg/dL Aspartate Amino Transf (AST/SGOT) 25 10-37 U/L Alanine Aminotransferase (ALT/SGPT) 26 12-78 U/L Alkaline Phosphatase 97 50-136 U/L Total Protein 4.8 L 6.0-8.3 g/dL Albumin 1.4 L 3.5-5.0 g/dL Bedside Glucose Comment Notified Nurse Immature Granulocyte % (Auto) 0.7 0-1 % Neutrophils (%) (Auto) 73.6 40.0-77.0 % Lymphocytes (%) (Auto) 12.3 L 21.0-51.0 % Monocytes (%) (Auto) 8.5 3.0-13.0 % Eosinophils (%) (Auto) 4.7 0.0-8.0 % Basophils (%) (Auto) 0.2 0.0-5.0 % Neutrophils # (Auto) 11.1 H 1.8-7.7 K/uL Lymphocytes # (Auto) 1.9 1.0-4.8 K/uL Monocytes # (Auto) 1.3 H 0.1-1.0 K/uL Eosinophils # (Auto) 0.70 0.00-0.70 K/uL Basophils # (Auto) 0.03 0.00-0.20 K/uL Absolute Immature Granulocyte (auto 0.10 0-1 K/uL Current Medications Medications (Trade) Dose Ordered Sig/Yefri Route PRN Reason Start Time Stop Time Status Last Admin Dose Admin Acetaminophen (TYLenol 325MG TAB) 650 mg Q6H PRN PO TEMPERATURE GREATER THAN 101.5 03/10/24 23:00 03/11/24 17:42 DC 03/11/24 17:35 650 MG Acetaminophen (TYLenol 325MG TAB) 650 mg Q6H PRN PO MILD PAIN (1-3) 03/11/24 17:30 04/10/24 17:29 03/13/24 17:14 650 MG Acetaminophen/ Codeine Phosphate (TYLenol-coDEINE TAB) 1 tab Q6H PRN PO MODERATE PAIN (4-6) 03/14/24 17:30 04/13/24 17:29 03/14/24 17:48 1 TAB Albuterol (DUOneb) 1 UDVIAL [id number] IH 03/11/24 00:00 04/10/24 00:00 03/15/24 06:29 1 UDVIAL Albuterol Sulfate (Proventil 0.083% 2.5mg/3ml) 2.5MG Q4H PRN IH SHORTNESS OF BREATH 03/10/24 23:00 04/09/24 22:59 Aspirin (Aspirin 81mg Chew Tab) 81 mg DAILY PO 03/14/24 09:00 04/13/24 08:59 03/14/24 09:24 81 MG Atorvastatin Calcium (LIPItor 40MG) 40 mg HS PO 03/13/24 21:00 04/12/24 20:59 03/14/24 21:29 40 MG Azithromycin 250 ml @ 250 mls/hr Q24H STAT IVPB 03/10/24 20:16 03/10/24 21:15 DC 03/10/24 20:42 250 MLS/HR Calcium Gluconate 1 gm/Sodium Chloride 100 ml @ 0 mls/hr PROTOCOL IV 03/10/24 22:00 04/09/24 21:59 Calcium Gluconate 1 gm/Sodium Chloride 100 ml @ 0 mls/hr PROTOCOL IV 03/11/24 05:00 03/11/24 04:51 DC Carvedilol (Coreg 6.25MG) 6.25 mg BIDMEALS PO 03/10/24 22:00 04/09/24 21:59 03/14/24 17:47 6.25 MG Ceftriaxone Sodium (ROCEphine 1G INJ) 1 gm ONCE STAT IVPB 03/10/24 20:16 03/10/24 20:18 DC 03/10/24 20:42 1 GM Clopidogrel Bisulfate (plaVIX 75MG) 75 mg DAILY PO 03/14/24 09:00 04/13/24 08:59 03/14/24 09:23 75 MG Dextrose (D50w) 50 ml AD PRN IV HYPOGLYCEMIA PROTOCOL 03/10/24 21:30 04/09/24 21:29 Doxycycline Hyclate 250 ml @ 125 mls/hr Q12H IV 03/11/24 12:00 03/11/24 10:45 DC Famotidine (Pepcid 20mg Vial) 20 mg DAILY IV 03/11/24 09:00 04/10/24 08:59 03/14/24 09:24 20 MG Fluticasone Propionate (FLOnase 50 mcg/ spray 16g bottle) 2 SPRAYS EACH NOST... DAILY EN 03/14/24 09:00 04/13/24 08:59 Furosemide (LASix 20MG VIAL) 20 mg Q8H IV 03/10/24 21:30 04/09/24 21:29 03/15/24 05:55 20 MG Gabapentin (NEURontin 100 mg CAP) 100 mg TID PO 03/12/24 10:00 04/11/24 09:59 03/14/24 21:29 100 MG Glucagon (Glucagon 1mg Kit) 1 mg AD PRN IM HYPOGLYCEMIA PROTOCOL 03/10/24 21:30 04/09/24 21:29 Heparin Sodium (Porcine) (HEParin 5,000 UNIT VIAL) 5,000 unit BID SQ 03/11/24 09:00 04/10/24 08:59 03/14/24 21:20 5,000 UNIT Heparin Sodium (Porcine) (HEParin 5,000 UNIT VIAL) 5,000 unit BID SQ 03/11/24 09:00 03/10/24 23:12 DC Home Med (Home Medication) Cholecalciferol (Vitamin D3) 1 CAP DAILY PO 03/14/24 09:00 04/13/24 08:59 Hydralazine HCl (APRESOLine 20MG INJ) 10 mg Q6H PRN IV For:SBP above 160;DBP above 90 03/10/24 23:00 04/09/24 22:59 03/14/24 12:43 10 MG Hydralazine HCl ([id number] TAB) 25 mg BID PO 03/13/24 21:00 03/15/24 08:29 DC 03/14/24 21:29 25 MG Hydralazine HCl ([id number] TAB) 50 mg Q8H5 PO 03/15/24 08:30 04/12/24 20:59 Hydromorphone HCl (DiLAUDid 1MG INJ) 1 mg Q4H PRN IVP SEVERE PAIN (7-10) 03/12/24 10:00 03/17/24 09:59 03/14/24 22:45 1 MG Insulin Human Regular (humuLIN R 100 UNIT/ML 3ML) INSULIN SLIDING SCAL... ACHS SQ 03/12/24 11:30 04/11/24 11:29 03/14/24 21:17 4 UNIT Insulin Human Regular (humuLIN R 100 UNIT/ML 3ML) INSULIN SLIDING SCAL... Q6H6 SQ 03/11/24 00:00 03/12/24 10:40 DC 03/11/24 18:22 3 UNIT Levofloxacin/ Dextrose 50 ml @ 50 mls/hr Q48H IVPB 03/11/24 11:00 03/21/24 10:59 03/13/24 09:53 50 MLS/HR Levofloxacin/ Dextrose 100 ml @ 100 mls/hr Q24H IV 03/11/24 11:00 03/11/24 10:53 DC Lorazepam (AtiVAN) 1 mg ONCE STAT IVP 03/10/24 17:39 03/10/24 17:40 DC 03/10/24 17:46 1 MG Magnesium Sulfate 50 ml @ 0 mls/hr PROTOCOL IV 03/14/24 09:00 04/13/24 08:59 03/14/24 09:25 25 MLS/HR Meropenem (Merrem) 500 mg Q12H IVPB 03/11/24 11:00 03/21/24 10:59 03/14/24 23:09 500 MG Meropenem 500 mg/ Sodium Chloride 100 ml @ 33.333 mls/ hr Q12H IV 03/11/24 10:30 03/11/24 10:48 DC Methylprednisolone Sodium Succinate (Solu-medROL 40MG) 40 mg BID IVP 03/11/24 09:00 03/11/24 10:45 DC 03/11/24 09:36 40 MG Montelukast Sodium (SinguLAIR) 10 mg HS PO 03/13/24 21:00 04/12/24 20:59 03/14/24 21:29 10 MG Ondansetron HCl (zoFRAN 4MG INJ) 4 mg Q6H PRN IV NAUSEA/VOMITING 03/10/24 23:00 04/09/24 22:59 03/14/24 12:42 4 MG Pantoprazole Sodium (PROTonix 40MG TAB) 40 mg DAILY PO 03/14/24 09:00 04/13/24 08:59 03/14/24 09:24 40 MG Piperacillin Sod/ Tazobactam Sod (Zosyn 3.375gm+NS 50ml) 3.375 gm Q12H IVPB 03/10/24 21:00 03/11/24 10:45 DC 03/11/24 09:36 3.375 GM Sodium Chloride 1,000 ml @ 500 mls/hr Q2H STAT IV 03/10/24 20:04 03/10/24 22:03 DC 03/10/24 20:40 500 MLS/HR Sodium Chloride (NS 50ml) 50 ml AD IV 03/11/24 00:00 03/10/24 21:15 DC Vancomycin HCl 250 ml @ 125 mls/hr Q48H IV 03/13/24 11:30 03/13/24 11:01 DC Vancomycin HCl (Vancomycin Protocol) 1 each AD IV 03/11/24 10:30 03/13/24 11:03 DC Vitamin B Complex/ Vit C/Folic Acid (Nephrovite Tablet) 1 cap DAILY PO 03/14/24 09:00 04/13/24 08:59 03/14/24 09:24 1 CAP DIAGNOSTICS / RADIOLOGY: [ ] ASSESSMENT: Metabolic encephalopathy Sepsis without shock Pneumonia Chronic renal failure. Hypokalemia, POA Diabetes mellitus type 2 last A1C 9.7 Hypertension Obesity BMI 31.7 PAD both lower extremities Right pleural effusion with mild interstitial fibrosis Possible infectious process involving L1-L2. PLAN: - patient remains admitted to the medical floor - MRI lumbar spine showing degenerative changes. Discussed with the patient - discussed with the Neurosurgery, no intervention required, can follow up as an outpatient - continue to follow infectious disease input recommendation -continue current IV antibiotics, continue to trend WBC in a.m. - continue closely monitoring patient's blood pressure, add hydralazine 25 mg p.o. b.i.d. - continue to follow Nephrology input and recommendation -a.m. labs Disposition: Remains admitted to the medical floor, WBC today at 14.0, we will remove [place] catheter today, follow ID input recommendation, Hematology consultation requested, follow input and recommendation. Continue to follow a.m. labs. We will request PT to evaluate the patient. Anticipate discharge home in the next 24 hours if medically stable. Discussed with the patient, in agreement. Plan of action discussed with the patient, all questions answered, agreed and understood the information provided. DEYANIRA ADAMSON MD Mar 15, 2024 08:42
[2024-03-15] MEDS: hydrALAZine 25MG TABLET PO SCH (08:46)
--- NOTE | 2024-03-15 14:01 | PN ---
NEPHROLOGY PROGRESS NOTE Date/Time Patient Seen: Mar 15, 2024 SUBJECTIVE: This is a 68 year old female with a past medical history of congestive heart failure history, hypertension, hyperlipidemia and chronic low back pain. She presented to the emergency room with complaints of altered mental status. Patient has a recent hospital admission for similar reason and was discharged on 03/07/2024 Blood culture has been negative She continues on broad-spectrum antibiotics, including vancomycin. Imaging studies were noted. Neurosurgery has been consulted for possible lumbar spines osteomyelitis She was noted to have elevated BUN/creatinine. We are consulted for renal failure. Renal function is improving Electrolytes show hypokalemia Hemoglobin is stable at 10.5 Iron panel was noted. She was seen in the medical floor, in no acute distress She is complaining of mouth sores. Condition is critical and guarded REVIEW OF SYSTEMS: GENERAL: Positive for generalized weakness NEUROLOGIC: Negative for any blurry vision, blind spots, double vision, facial asymmetry, dysphagia, dysarthria, hemiparesis, hemisensory deficits, vertigo, ataxia. HEENT: Negative for any head trauma, neck trauma, neck stiffness, photophobia, phonophobia, sinusitis, rhinitis. CARDIAC: Negative for any chest pain, dyspnea on exertion, paroxysmal nocturnal dyspnea, peripheral edema. PULMONARY: Negative for any shortness of breath, wheezing, COPD, or TB exposure. GASTROINTESTINAL: Negative for any abdominal pain, nausea, vomiting, bright red blood per rectum, melena. GENITOURINARY: Negative for any dysuria, hematuria, incontinence. INTEGUMENTARY: Negative for any rashes, cuts, insect bites. RHEUMATOLOGIC: Negative for any joint pains, photosensitive rashes, history of v asculitis or kidney problems. HEMATOLOGIC: Negative for any abnormal bruising, frequent infections or bleed ing. Vital Signs (last 8hr) Date Time Temp Pulse Resp B/P (MAP) Pulse Ox O2 Delivery O2 Flow Rate FiO2 03/12/24 12:03 82 16 03/12/24 12:00 98.4 99 23 158/85 94 Room Air 03/12/24 11:00 83 10 170/86 93 Room Air 03/12/24 10:00 82 12 174/89 96 Room Air 03/12/24 09:00 93 15 163/79 94 Room Air 03/12/24 08:16 164/68 03/12/24 08:00 95 Room Air* 0 21 12/16/24 08:00 97 17 161/94 93 Room Air 03/12/24 07:00 97.9 93 15 164/68 90 Nasal Cannula 2.0 03/12/24 06:38 92 16 03/12/24 06:38 92 16 N/Cannula Low lpm 2.0 28 PHYSICAL EXAM: GENERAL: Alert and oriented x 3. No acute distress. Well-nourished. EYES: EOMI. Anicteric. HENT: Moist mucous membranes. No scleral icterus. No cervical lymphadenopathy. LUNGS: Clear to auscultation bilaterally. No accessory muscle use. CARDIOVASCULAR: Regular rate and rhythm. No murmur. No JVD. ABDOMEN: Soft, non-tender and non-distended. No palpable masses. EXTREMITIES: No edema. Non-tender. SKIN: No rashes or lesions. Warm. NEUROLOGIC: No focal neurological deficits. CN II-XII grossly intact, but not individually tested. PSYCHIATRIC: Cooperative. Appropriate mood and affect. Current Medications Medications (Trade) Dose Ordered Sig/Yefri Route PRN Reason Start Time Stop Time Status Last Admin Dose Admin Acetaminophen (TYLenol 325MG TAB) 650 mg Q6H PRN PO TEMPERATURE GREATER THAN 101.5 03/10/24 23:00 03/11/24 17:42 DC 03/11/24 17:35 650 MG Acetaminophen (TYLenol 325MG TAB) 650 mg Q6H PRN PO MILD PAIN (1-3) 03/11/24 17:30 04/10/24 17:29 03/12/24 08:15 650 MG Albuterol (DUOneb) 1 UDVIAL [id number] IH 03/11/24 00:00 04/10/24 00:00 03/12/24 12:02 1 UDVIAL Albuterol Sulfate (Proventil 0.083% 2.5mg/3ml) 2.5MG Q4H PRN IH SHORTNESS OF BREATH 03/10/24 23:00 04/09/24 22:59 Azithromycin 250 ml @ 250 mls/hr Q24H STAT IVPB 03/10/24 20:16 03/10/24 21:15 DC 03/10/24 20:42 250 MLS/HR Calcium Gluconate 1 gm/Sodium Chloride 100 ml @ 0 mls/hr PROTOCOL IV 03/10/24 22:00 04/09/24 21:59 Calcium Gluconate 1 gm/Sodium Chloride 100 ml @ 0 mls/hr PROTOCOL IV 03/11/24 05:00 03/11/24 04:51 DC Carvedilol (Coreg 6.25MG) 6.25 mg BIDMEALS PO 03/10/24 22:00 04/09/24 21:59 03/12/24 08:16 6.25 MG Ceftriaxone Sodium (ROCEphine 1G INJ) 1 gm ONCE STAT IVPB 03/10/24 20:16 03/10/24 20:18 DC 03/10/24 20:42 1 GM Dextrose (D50w) 50 ml AD PRN IV HYPOGLYCEMIA PROTOCOL 03/10/24 21:30 04/09/24 21:29 Doxycycline Hyclate 250 ml @ 125 mls/hr Q12H IV 03/11/24 12:00 03/11/24 10:45 DC Famotidine (Pepcid 20mg Vial) 20 mg DAILY IV 03/11/24 09:00 04/10/24 08:59 03/12/24 08:16 20 MG Furosemide (LASix 20MG VIAL) 20 mg Q8H IV 03/10/24 21:30 04/09/24 21:29 03/12/24 05:44 20 MG Gabapentin (NEURontin 100 mg CAP) 100 mg TID PO 03/12/24 10:00 04/11/24 09:59 03/12/24 10:11 100 MG Glucagon (Glucagon 1mg Kit) 1 mg AD PRN IM HYPOGLYCEMIA PROTOCOL 03/10/24 21:30 04/09/24 21:29 Heparin Sodium (Porcine) (HEParin 5,000 UNIT VIAL) 5,000 unit BID SQ 03/11/24 09:00 04/10/24 08:59 03/12/24 08:18 5,000 UNIT Heparin Sodium (Porcine) (HEParin 5,000 UNIT VIAL) 5,000 unit BID SQ 03/11/24 09:00 03/10/24 23:12 DC Hydralazine HCl (APRESOLine 20MG INJ) 10 mg Q6H PRN IV For:SBP above 160;DBP above 90 03/10/24 23:00 04/09/24 22:59 03/12/24 10:12 10 MG Hydromorphone HCl (DiLAUDid 1MG INJ) 1 mg Q4H PRN IVP SEVERE PAIN (7-10) 03/12/24 10:00 03/17/24 09:59 03/12/24 10:43 1 MG Insulin Human Regular (humuLIN R 100 UNIT/ML 3ML) INSULIN SLIDING SCAL... ACHS SQ 03/12/24 11:30 04/11/24 11:29 Insulin Human Regular (humuLIN R 100 UNIT/ML 3ML) INSULIN SLIDING SCAL... Q6H6 SQ 03/11/24 00:00 03/12/24 10:40 DC 03/11/24 18:22 3 UNIT Levofloxacin/ Dextrose 50 ml @ 50 mls/hr Q48H IVPB 03/11/24 11:00 03/21/24 10:59 03/11/24 12:40 50 MLS/HR Levofloxacin/ Dextrose 100 ml @ 100 mls/hr Q24H IV 03/11/24 11:00 03/11/24 10:53 DC Lorazepam (AtiVAN) 1 mg ONCE STAT IVP 03/10/24 17:39 03/10/24 17:40 DC 03/10/24 17:46 1 MG Meropenem (Merrem) 500 mg Q12H IVPB 03/11/24 11:00 03/21/24 10:59 03/12/24 10:11 500 MG Meropenem 500 mg/ Sodium Chloride 100 ml @ 33.333 mls/ hr Q12H IV 03/11/24 10:30 03/11/24 10:48 DC Methylprednisolone Sodium Succinate (Solu-medROL 40MG) 40 mg BID IVP 03/11/24 09:00 03/11/24 10:45 DC 03/11/24 09:36 40 MG Ondansetron HCl (zoFRAN 4MG INJ) 4 mg Q6H PRN IV NAUSEA/VOMITING 03/10/24 23:00 04/09/24 22:59 03/12/24 11:55 4 MG Piperacillin Sod/ Tazobactam Sod (Zosyn 3.375gm+NS 50ml) 3.375 gm Q12H IVPB 03/10/24 21:00 03/11/24 10:45 DC 03/11/24 09:36 3.375 GM Sodium Chloride 1,000 ml @ 500 mls/hr Q2H STAT IV 03/10/24 20:04 03/10/24 22:03 DC 03/10/24 20:40 500 MLS/HR Sodium Chloride (NS 50ml) 50 ml AD IV 03/11/24 00:00 03/10/24 21:15 DC Vancomycin HCl 250 ml @ 125 mls/hr Q48H IV 03/13/24 11:30 03/23/24 11:29 Vancomycin HCl (Vancomycin Protocol) 1 each AD IV 03/11/24 10:30 03/25/24 10:29 LABORATORY: [ ] Hematology Labs: Test 03/15/24 04:39 03/14/24 05:20 Range/Units White Blood Count 14.0 H 4.8-10.8 K/uL Red Blood Count 3.40 L 4.00-5.50 MIL/uL Hemoglobin 10.4 L 12.0-16.0 g/dL Hematocrit 32.5 L 36-48 % Mean Corpuscular Volume 95.6 79-99 fL Mean Corpuscular Hemoglobin 30.6 27.0-33.0 pg Mean Corpuscular Hemoglobin Concent 32.0 32.0-36.0 g/dL Red Cell Distribution Width 14.7 11.0-15.5 % Platelet Count 237 130-400 K/uL Mean Platelet Volume 12.2 H 7.5-10.5 fL Nucleated Red Blood Cells 0.0 0.0-0.19 % Immature Granulocyte % (Auto) 0.7 0-1 % Neutrophils (%) (Auto) 73.6 40.0-77.0 % Lymphocytes (%) (Auto) 12.3 L 21.0-51.0 % Monocytes (%) (Auto) 8.5 3.0-13.0 % Eosinophils (%) (Auto) 4.7 0.0-8.0 % Basophils (%) (Auto) 0.2 0.0-5.0 % Neutrophils # (Auto) 11.1 H 1.8-7.7 K/uL Lymphocytes # (Auto) 1.9 1.0-4.8 K/uL Monocytes # (Auto) 1.3 H 0.1-1.0 K/uL Eosinophils # (Auto) 0.70 0.00-0.70 K/uL Basophils # (Auto) 0.03 0.00-0.20 K/uL Absolute Immature Granulocyte (auto 0.10 0-1 K/uL Chemistry Labs: Test 03/15/24 11:07 03/15/24 04:39 Range/Units Whole Blood Glucose 165 H 70-110 MG/DL Bedside Glucose Comment Notified Nurse Sodium Level 147 H 136-145 mmol/L Potassium Level 3.4 L 3.5-5.1 mmol/L Chloride Level 112 H 101-111 mmol/L Carbon Dioxide Level 29 21-32 mmol/L Blood Urea Nitrogen 65 H 7-18 mg/dL Creatinine 2.9 H 0.5-1.0 mg/dL Glomerular Filtration Rate Calc 17 >90 mL/min Random Glucose 134 H 70-105 mg/dL Total Calcium 7.9 L 8.5-10.1 mg/dL Phosphorus Level 5.0 H 2.5-4.9 mg/dL Magnesium Level 2.20 1.80-2.40 mg/dL Total Bilirubin 0.3 0.2-1.0 mg/dL Aspartate Amino Transf (AST/SGOT) 25 10-37 U/L Alanine Aminotransferase (ALT/SGPT) 26 12-78 U/L Alkaline Phosphatase 97 50-136 U/L Total Protein 4.8 L 6.0-8.3 g/dL Albumin 1.4 L 3.5-5.0 g/dL DIAGNOSTICS / RADIOLOGY: REASON: AMS ORDERING PHYSICIAN: DENA FAUST PROCEDURE: BRAIN WO - MR BRAIN WO CON MR BRAIN WO CON HISTORY: Altered mental status COMPARISON: None TECHNIQUE: MRI of the brain was performed utilizing multiple pulse sequences in axial, coronal and sagittal planes. Patient was not given contrast through intravenous route. FINDINGS: The ventricles and extraventricular CSF spaces are dilated consistent with cerebral atrophy. Nonspecific white matter changes are seen. There is no midline shift, mass effect or herniation. No subacute hemorrhage is seen. No MR evidence of acute infarct is seen in the diffusion weighted images. Cerebellar tonsils are in normal position. There are bilateral ethmoid and sphenoid sinusitis with mucoperiosteal thickening. No MR evidence of a mass lesion is seen in this noncontrast study. IMPRESSION: 1. No MR evidence of acute infarct is seen in the diffusion weighted images. Atrophy with white matter changes. DICTATED BY: GARRICK ROWLAND MD DATE: 03/12/24 7268 REASON: PNEUMONIA ORDERING PHYSICIAN: YUE AKERS MD PROCEDURE: CHEST WO - CT CHEST W/O CONTRAST CT CHEST W/O CONTRAST HISTORY: Pneumonia COMPARISON: None TECHNIQUE: Multiple sequential axial images of the chest were obtained from the thoracic inlet through upper abdomen. Patient was not given contrast through intravenous route. FINDINGS: There are bilateral pleural effusions with compressive atelectasis. Coronary arterial calcifications are seen. Gallbladder is distended. There is mild anasarca. No pleural effusion or pericardial effusion is seen. There is no evidence of pneumothorax. There are normal size mediastinal and hilar lymph nodes. The heart is not enlarged. Degenerative changes of the thoracolumbar spine are present. There is no evidence of adrenal nodule. IMPRESSION: 1. Mild to moderate bilateral pleural effusions with compressive atelectasis. CT was performed with one or more following dose reduction techniques: automated exposure control, adjustment of the mA and kv according to patient's size, or use of a iterative reconstruction technique. DICTATED BY: GARRICK ROWLAND MD DATE: 03/12/24 0244 REASON: Rule out ostemyelitis ORDERING PHYSICIAN: JUAN ANTONIO ALLISON CNP PROCEDURE: L SPN WO - MR SPINAL CANAL, LUMBAR WO CON MR SPINAL CANAL, LUMBAR WO CON HISTORY: Pain COMPARISON: CT from 03/11/2024 TECHNIQUE: MRI of the lumbar spine was performed utilizing multiple pulse sequences in axial and sagittal plane. Patient was not given contrast through intravenous route. FINDINGS: Endplate degenerative changes with disc space narrowing are seen predominantly involving the L1-L2 level. Orthopedic fixation plates and screws are seen traversing the T12 and L1 with paramagnetic susceptibility artifacts limiting evaluation. There is disc noted at the lumbosacral junction and for numbering purposes only, this level will be designated as S1-S2. No abnormal signal intensity is seen of the visualized bony structure. No loss of vertebral height is seen. There is straightening of normal lumbar curvature which may be related to muscle spasm or positioning. Degenerative disc signals are present at all lumbar spine levels. Visualized distal conus is unremarkable. At the L2-3 level, there is spondylotic with central disc protrusion/herniation with bilateral ligamentum flavum hypertrophy causing anterior thecal sac compression with bilateral lateral recess stenosis and bilateral neural foraminal stenosis. The thecal sac measures approximately 7 mm in its anterior posterior dimension. At the L3-4 level, there is spondylotic disc with bilateral ligamentum flavum hypertrophy causing anterior thecal sac compression with bilateral lateral recess stenosis and bilateral neural foraminal stenosis. The thecal sac measures approximately 6.2 mm in its anterior posterior dimension. At the L4-5 level, there is spondylotic disc with bilateral ligamentum flavum hypertrophy causing anterior thecal sac compression with bilateral lateral recess stenosis and bilateral neural foraminal stenosis. The thecal sac measures approximately 8.4 mm in its anterior posterior dimension. At the L5-S1 level, there is spondylotic disc with bilateral ligamentum flavum hypertrophy and facet hypertrophy causing anterior thecal sac compression with bilateral lateral recess stenosis and bilateral neural foraminal stenosis. The thecal sac measures approximately 8.2 mm in its anterior posterior dimension. IMPRESSION: 1. DJD with lumbar spine spondylosis as described above. Evaluation at T12 and L1 are limited due to postop artifacts. DICTATED BY: GARRICK ROWLAND MD DATE: 03/12/24 8560 REASON: sepsis, backpain, ruling out device infection ORDERING PHYSICIAN: JUAN ANTONIO ALLISON CNP PROCEDURE: T SPINE WO - CT THORACIC SPINE W/O CONTRAST CT THORACIC SPINE W/O CONTRAST, CT LUMBAR SPINE W/O CONTRAST HISTORY: sepsis, back pain, ruling out device infection TECHNIQUE: CT THORACIC SPINE W/O CONTRAST, CT LUMBAR SPINE W/O CONTRAST. Coronal and sagittal reformats were obtained. CT was performed with one or more of the following dose reduction techniques: Automated exposure control, adjustment of the mA and/or kV according to the patient's size, or use of the iterative reconstruction technique. FINDINGS: Evaluation of the cord and discs is limited with CT. No evidence of compression fracture or dislocation. There is diffuse osteopenia degraded evaluation of the study. Multilevel degenerative changes are noted. Postop changes of posterior fusion are seen at L1-L2 on the right with pedicle screws and fixation bar. Advanced degenerative changes are seen at L2-L3 with disc space loss, endplate osteophytes and endplate sclerosis/lucencies, underlying infection is not excluded. Correlate clinically. Stimulator leads are seen in the lower thoracic spine. Small left and moderate right pleural effusion with bilateral lower lobe consolidation. The aorta is normal in caliber. No acute findings in the visualized abdomen. The visualized lungs are clear. IMPRESSION: There is diffuse osteopenia degraded evaluation of the study. Multilevel degenerative changes are noted. Postop changes of posterior fusion are seen at L1-L2 on the right with pedicle screws and fixation bar. Advanced degenerative changes are seen at L2-L3 with disc space loss, endplate osteophytes and endplate sclerosis/lucencies, underlying infection is not excluded. Correlate clinically. Stimulator leads are seen in the lower thoracic spine. Small left and moderate right pleural effusion with bilateral lower lobe consolidation.. DICTATED BY: DEVON GEORGES MD DATE: 03/11/245 REASON: sepsis, backpain, ruling out device infection ORDERING PHYSICIAN: JUAN ANTONIO ALLISON CNP PROCEDURE: L SPIN WO - CT LUMBAR SPINE W/O CONTRAST CT THORACIC SPINE W/O CONTRAST, CT LUMBAR SPINE W/O CONTRAST HISTORY: sepsis, back pain, ruling out device infection TECHNIQUE: CT THORACIC SPINE W/O CONTRAST, CT LUMBAR SPINE W/O CONTRAST. Coronal and sagittal reformats were obtained. CT was performed with one or more of the following dose reduction techniques: Automated exposure control, adjustment of the mA and/or kV according to the patient's size, or use of the iterative reconstruction technique. FINDINGS: Evaluation of the cord and discs is limited with CT. No evidence of compression fracture or dislocation. There is diffuse osteopenia degraded evaluation of the study. Multilevel degenerative changes are noted. Postop changes of posterior fusion are seen at L1-L2 on the right with pedicle screws and fixation bar. Advanced degenerative changes are seen at L2-L3 with disc space loss, endplate osteophytes and endplate sclerosis/lucencies, underlying infection is not excluded. Correlate clinically. Stimulator leads are seen in the lower thoracic spine. Small left and moderate right pleural effusion with bilateral lower lobe consolidation. The aorta is normal in caliber. No acute findings in the visualized abdomen. The visualized lungs are clear. IMPRESSION: There is diffuse osteopenia degraded evaluation of the study. Multilevel degenerative changes are noted. Postop changes of posterior fusion are seen at L1-L2 on the right with pedicle screws and fixation bar. Advanced degenerative changes are seen at L2-L3 with disc space loss, endplate osteophytes and endplate sclerosis/lucencies, underlying infection is not excluded. Correlate clinically. Stimulator leads are seen in the lower thoracic spine. Small left and moderate right pleural effusion with bilateral lower lobe consolidation.. DICTATED BY: DEVON GEORGES MD DATE: 03/11/245 REASON: AMS ORDERING PHYSICIAN: NOEL DUARTE NP PROCEDURE: HEAD WO - CT HEAD/BRAIN W/O CONTRAST CT HEAD/BRAIN W/O CONTRAST INDICATION: AMS TECHNIQUE: CT HEAD/BRAIN W/O CONTRAST. CT was performed with one or more of the following dose reduction techniques: Automated exposure control, adjustment of the mA and/or kV according to the patient's size, or use of the iterative reconstruction technique. Comparison: None FINDINGS: Cerebral atrophy seen. Nonspecific periventricular and subcortical white matters changes are noted likely representing small vessel ischemic changes. No midline shift or herniation. No extra axial collection. No acute intracranial bleed. The visualized paranasal sinuses and mastoid air cells are normally aerated. IMPRESSION: Mild atrophy. No acute intracranial bleed is seen. Scattered nonspecific white matter changes DICTATED BY: DEVON GEORGES MD DATE: 03/10/24 1736 REASON: SOB ORDERING PHYSICIAN: NOEL DUARTE NP PROCEDURE: CXR1VW - CHEST 1VW INDICATION: SOB TECHNIQUE: CHEST 1VW COMPARISON: 03/08/2024 FINDINGS/IMPRESSION: Bilateral airspace consolidation suggesting vascular congestion/edema versus pneumonia. Small right effusion is seen. Cardiomegaly is seen Mild degenerative changes of the spine. The visualized upper abdomen appears unremarkable. DICTATED BY: DEVON GEORGES MD DATE: 03/10/24 1819 ASSESSMENT: Hypokalemia Acute on chronic renal failure Nephrotic syndrome Metabolic encephalopathy Sepsis without shock Pneumonia Diabetes mellitus type 2 Hypertension Obesity BMI 31.7 PAD both lower extremities Right pleural effusion with mild interstitial fibrosis Possible infectious process involving L1-L2. PLAN: Labs, diagnostic, radiologic exams reviewed and interpreted by myself and supervising physician. We have reviewed external records in detail Potassium replacement has been ordered Require close monitoring of renal function and electrolytes Order CBC, CMP, and electrolytes in am Follow blood cultures BiPAP as necessary, for respiratory distress Monitor blood pressure adjust medication doses as needed Avoid hypotensive episodes May use Dilaudid 0.5 mg IV every 6 hours as needed for severe pain Monitor blood sugars Strict intake, output, and daily weight should be monitored Please renally adjust medications Avoid nephrotoxic and nonsteroidal drugs Avoid contrast if possible Will continue to monitor renal function, anemia, electrolytes Treatment plan discussed with patient Questions were answered We have discussed with the other team physicians in detail about the care plan We will continue to monitor the patient closely ATTESTATION BY PHYSICIAN I have seen and examined the patient. I reviewed the documentation, medical decision making, and treatment plan as noted by the mid-level provider above. I agree with the findings and plan of care. LIZZY TRONCOSO MD, [facility] Mar 15, 2024 14:01
--- NOTE | 2024-03-15 16:33 | NUR ---
PT linda completed. Pt in severe pain at rest to BLE. Pt reports pain is new and severe this admission. Pt tearful and dryheaving. C/O nausea. Nurse aware. Pt assisted to BSC, toileted and back to bed with daughter present. Pt and daughter instructed to call for help with transfer and not to take self to RR . Daughter reports that "the nurse told me to go slow and take her to the RR myself". PT and daughter voiced that they understand and will call for help. Pt did NOT WALK with PT due to severe BLE pain and intractable nausea.
--- NOTE | 2024-03-15 18:57 | CONS ---
CONSULT NOTE: A 68-year-old female with history of CHF, diabetes mellitus, dyslipidemia, who presented to the hospital with altered mental status. The patient also found with some shortness of breath. The patient admitted to ICU for further care. Procalcitonin is negative. WBC elevated at 18,000. The patient was started on vancomycin and levofloxacin The patient was discharged from this facility two days ago. During the previous admission, she was found to have pneumonia and cellulitis and acute on chronic renal failure. I was consulted for leukocytosis and anemia. There is no obvious bleeding. PAST MEDICAL HISTORY: * Diabetes mellitus. * Dyslipidemia. * Chronic kidney disease. * Peripheral vascular disease. * CHF. PAST SURGICAL HISTORY: * Femoropopliteal bypass. * Back surgery. * Nerve stimulator implant. ALLERGIES: * DOXYCYCLINE. * IODINE. CURRENT MEDICATIONS: Reviewed. SOCIAL HISTORY: No alcohol, tobacco or illicit drug use. FAMILY HISTORY: Positive for diabetes mellitus. REVIEW OF SYSTEMS: Greater than 10 systems were reviewed, negative except as documented above. PHYSICAL EXAMINATION: GENERAL: Elderly female, awake, slightly confused. VITAL SIGNS: Temperature 98.4, respiratory 23, blood pressure 158/85. EYES: No icterus. Pupils are equal and reactive. HENT: No oral thrush seen. Moist oral mucosa. NECK: Supple. No JVD or thyromegaly. LUNGS: Good air entry. No rales, no rhonchi. CARDIOVASCULAR: S1, S2 regular. No murmur heard. ABDOMEN: Full. Soft. Nontender. Bowel sound is present. CENTRAL NERVOUS SYSTEM: Awake, alert. No focal deficits. SKIN: No rashes. No itchiness. LYMPHATIC: No peripheral lymphadenopathy. BACK: No deformity. No pressure ulcer. MUSCULOSKELETAL: No joint swelling, erythema or tenderness. LABORATORY DATA: Procalcitonin negative. Sodium 147, potassium 3.4, BUN 63, creatinine 3.8. WBC 18.5, hemoglobin 10.2, platelet 254. Urine toxicology negative. Blood culture, no growth for one day. RADIOLOGY: CT of the thoracic spine unremarkable. ASSESSMENT: 1. Anemia 2. Leukocytosis 3. Congestive heart failure 4. Hyperlipidemia 5. Hyperlipidemia 6. Diabetes mellitus 7. Encephalopathy Plan 1. Peripheral blood smear showed red blood cells to be microcytic normochromic. There was no fragment cell or schistocyte. There is no teardrop cell. There is no rouleaux phenomena. There is no pelger-Huet cell. White blood cell with no blasts. Platelet was normal in morphology and count. There is increased number of the neutrophil and band consistent with infection. There is also vacuolation confirms the diagnosis of sepsis 2. There was hypersegmented neutrophils. This patient to be startedLAB RESULTS 03/15/24 17:07: Whole Blood Glucose 198H 03/15/24 11:07: Bedside Glucose Comment Notified Nurse 03/15/24 04:39: White Blood Count 14.0H, Red Blood Count 3.40L, Hemoglobin 10.4L, Hematocrit 32.5L, Mean Corpuscular Volume 95.6, Mean Corpuscular Hemoglobin 30.6, Mean Corpuscular Hemoglobin Concent 32.0, Red Cell Distribution Width 14.7, Platelet Count 237, Mean Platelet Volume 12.2H, Nucleated Red Blood Cells 0.0, Sodium Level 147H, Potassium Level 3.4L, Chloride Level 112H, Carbon Dioxide Level 29, Blood Urea Nitrogen 65H, Creatinine 2.9H, Glomerular Filtration Rate Calc 17, Random Glucose 134H, Total Calcium 7.9L, Phosphorus Level 5.0H, Magnesium Level 2.20, Total Bilirubin 0.3, Aspartate Amino Transf (AST/SGOT) 25, Alanine Aminotransferase (ALT/SGPT) 26, Alkaline Phosphatase 97, Total Protein 4.8L, Albumin 1.4L 03/14/24 05:20: Immature Granulocyte % (Auto) 0.7, Neutrophils (%) (Auto) 73.6, Lymphocytes (%) (Auto) 12.3L, Monocytes (%) (Auto) 8.5, Eosinophils (%) (Auto) 4.7, Basophils (%) (Auto) 0.2, Neutrophils # (Auto) 11.1H, Lymphocytes # (Auto) 1.9, Monocytes # (Auto) 1.3H, Eosinophils # (Auto) 0.70, Basophils # (Auto) 0.03, Absolute Immature Granulocyte (auto 0.10 on folic acid 1 mg p.o. daily and vitamin B12 1000 mcg p.o. daily. 3. No need for bone marrow biopsy 4. Patient actually with iron deficiency anemia. The patient could benefit from IV iron. While the patient in the hospital. 5. Continue antibiotic treatment as per infectious disease specialist Laboratory Tests Test 03/14/24 19:46 03/15/24 04:39 03/15/24 05:46 03/15/24 11:07 Whole Blood Glucose 230 MG/DL (70-110) H 132 MG/DL (70-110) H 165 MG/DL (70-110) H White Blood Count 14.0 K/uL (4.8-10.8) H Red Blood Count 3.40 MIL/uL (4.00-5.50) L Hemoglobin 10.4 g/dL (12.0-16.0) L Hematocrit 32.5 % (36-48) L Mean Corpuscular Volume 95.6 fL (79-99) Mean Corpuscular Hemoglobin 30.6 pg (27.0-33.0) Mean Corpuscular Hemoglobin Concent 32.0 g/dL (32.0-36.0) Red Cell Distribution Width 14.7 % (11.0-15.5) Platelet Count 237 K/uL (130-400) Mean Platelet Volume 12.2 fL (7.5-10.5) H Nucleated Red Blood Cells 0.0 % (0.0-0.19) Sodium Level 147 mmol/L (136-145) H Potassium Level 3.4 mmol/L (3.5-5.1) L Chloride Level 112 mmol/L (101-111) H Carbon Dioxide Level 29 mmol/L (21-32) Blood Urea Nitrogen 65 mg/dL (7-18) H Creatinine 2.9 mg/dL (0.5-1.0) H Glomerular Filtration Rate Calc 17 mL/min (>90) Random Glucose 134 mg/dL (70-105) H Total Calcium 7.9 mg/dL (8.5-10.1) L Phosphorus Level 5.0 mg/dL (2.5-4.9) H Magnesium Level 2.20 mg/dL (1.80-2.40) Total Bilirubin 0.3 mg/dL (0.2-1.0) Aspartate Amino Transf (AST/SGOT) 25 U/L (10-37) Alanine Aminotransferase (ALT/SGPT) 26 U/L (12-78) Alkaline Phosphatase 97 U/L (50-136) Total Protein 4.8 g/dL (6.0-8.3) L Albumin 1.4 g/dL (3.5-5.0) L Bedside Glucose Comment Notified Nurse Test 03/15/24 17:07 Whole Blood Glucose 198 MG/DL (70-110) H RAFITA OLIVA MD Mar 15, 2024 18:57
[2024-03-15] MEDS: PoTASSium chloRIDE 20MEQ ER 20 MEQ ERTAB PO ONE (19:18)
--- NOTE | 2024-03-15 23:11 | PN ---
INFECTIOUS DISEASE PROGRESS NOTE Date of Service: Mar 15, 2024 SUBJECTIVE: This is a 68-year-old female patient who was admitted with chief complaint altered mental status and muscle spasms. 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 Patient was seen and examined at bedside in room 327. Patient continues on levofloxacin and Meropenem. No growth reported on the blood cultures. No reports of nausea or vomiting. Will continue to follow patient's care. PHYSICAL EXAM EYES: Anicteric. Pupils equal and reactive. HENT: No oral thrush seen, moist Oral mucosa. NECK: Supple, no JVD or thyromegaly. LUNGS: Good air entry. No rales, no rhonchi. CARDIOVASCULAR: S1, S2 regular. No murmur heard. ABDOMEN: Soft, non tender, bowel sounds present, no organomegaly. CENTRAL NERVOUS SYSTEM: Awake, alert, oriented x 3. SKIN: No rashes, no swelling. LYMPHATICS: No peripheral lymphadenopathy. MUSCULOSKELETAL: No joint swelling, erythema or tenderness. EXTREMITIES: No cyanosis or clubbing. BACK: No deformity, no pressure ulcer. GENITOURINARY: No dysuria or hematuria. Vital Sign (Last 12 Hours) 03/15/24 03/15/24 03/15/24 03/15/24 16:00 17:38 18:57 18:57 Temp 97.9 Pulse 78 68 64 Resp 18 18 18 B/P (MAP) 190/90 190/90 Pulse Ox 97 O2 Delivery Room Air N/A Room Air FiO2 21 21 03/15/24 03/15/24 20:00 22:56 Temp 98.1 Pulse 80 65 Resp 20 19 B/P (MAP) 145/77 Pulse Ox 94 O2 Delivery Room Air Intake & Output (last 24hrs) 03/14/24 03/14/24 03/15/24 15:00 23:00 07:00 Output Total 1600 ml Balance -1600 ml LABS: Laboratory: Test 03/15/24 20:11 03/15/24 11:07 03/15/24 04:39 03/14/24 05:20 Range/Units Whole Blood Glucose 182 H 70-110 MG/DL Bedside Glucose Comment Notified Nurse White Blood Count 14.0 H 4.8-10.8 K/uL Red Blood Count 3.40 L 4.00-5.50 MIL/uL Hemoglobin 10.4 L 12.0-16.0 g/dL Hematocrit 32.5 L 36-48 % Mean Corpuscular Volume 95.6 79-99 fL Mean Corpuscular Hemoglobin 30.6 27.0-33.0 pg Mean Corpuscular Hemoglobin Concent 32.0 32.0-36.0 g/dL Red Cell Distribution Width 14.7 11.0-15.5 % Platelet Count 237 130-400 K/uL Mean Platelet Volume 12.2 H 7.5-10.5 fL Nucleated Red Blood Cells 0.0 0.0-0.19 % Sodium Level 147 H 136-145 mmol/L Potassium Level 3.4 L 3.5-5.1 mmol/L Chloride Level 112 H 101-111 mmol/L Carbon Dioxide Level 29 21-32 mmol/L Blood Urea Nitrogen 65 H 7-18 mg/dL Creatinine 2.9 H 0.5-1.0 mg/dL Glomerular Filtration Rate Calc 17 >90 mL/min Random Glucose 134 H 70-105 mg/dL Total Calcium 7.9 L 8.5-10.1 mg/dL Phosphorus Level 5.0 H 2.5-4.9 mg/dL Magnesium Level 2.20 1.80-2.40 mg/dL Total Bilirubin 0.3 0.2-1.0 mg/dL Aspartate Amino Transf (AST/SGOT) 25 10-37 U/L Alanine Aminotransferase (ALT/SGPT) 26 12-78 U/L Alkaline Phosphatase 97 50-136 U/L Total Protein 4.8 L 6.0-8.3 g/dL Albumin 1.4 L 3.5-5.0 g/dL Immature Granulocyte % (Auto) 0.7 0-1 % Neutrophils (%) (Auto) 73.6 40.0-77.0 % Lymphocytes (%) (Auto) 12.3 L 21.0-51.0 % Monocytes (%) (Auto) 8.5 3.0-13.0 % Eosinophils (%) (Auto) 4.7 0.0-8.0 % Basophils (%) (Auto) 0.2 0.0-5.0 % Neutrophils # (Auto) 11.1 H 1.8-7.7 K/uL Lymphocytes # (Auto) 1.9 1.0-4.8 K/uL Monocytes # (Auto) 1.3 H 0.1-1.0 K/uL Eosinophils # (Auto) 0.70 0.00-0.70 K/uL Basophils # (Auto) 0.03 0.00-0.20 K/uL Absolute Immature Granulocyte (auto 0.10 0-1 K/uL ASSESSMENT: Leukocytosis. Acute on chronic renal failure. Heart failure. Multifactorial Encephalopathy. Diabetes mellitus. Iron-deficiency Anemia. Bilateral pleural effusion. Anterior thecal sac compression on lumbar MRI. PLAN: Continue levofloxacin. Continue Meropenem. Continue GI prophylaxis. Patient will need to follow up with neurosurgeon as outpatient. Continue pain management. Continue monitoring glucose levels. We will follow up on the cultures. This case was reviewed and discussed with my supervising physician and the above assessment and plan was formulated and agreed upon. ATTESTATION BY PHYSICIAN I have seen and examined the patient. I reviewed the documentation, medical decision making, and treatment plan as noted by the mid-level provider above. I agree with the findings and plan of care. YUE AKERS MD, MIRTA L [facility] Mar 15, 2024 23:11
[2024-03-16] VITALS: BP 146/76; PULSE 88; RESP 20; TEMP 98.1
[2024-03-16 04:00] VITALS: BP 125/80; PULSE 84; RESP 20; TEMP 98.1
[2024-03-16 05:45] LABS: HEMATOCRIT 32.3 % (36-48); MEAN CORPUSCULAR HEMOGLOBIN 30.8 pg (27.0-33.0); MEAN CORPUSCULAR HGB CONC 32.2 g/dL (32.0-36.0); MEAN CORPUSCULAR VOLUME 95.6 fL (79-99); RED BLOOD CELL COUNT(AUTO) 3.38 MIL/uL (4.00-5.50); RED CELL DISTRIBUTION WIDTH 14.8 % (11.0-15.5); WHITE BLOOD COUNT (AUTO) 12.2 K/uL (4.8-10.8)
[2024-03-16 05:54] LABS: ALBUMIN 1.3 g/dL (3.5-5.0); BILIRUBIN,TOTAL 0.3 mg/dL (0.2-1.0); CREATININE 2.3 mg/dL (0.5-1.0); PHOSPHORUS 4.7 mg/dL (2.5-4.9); POTASSIUM 3.2 mmol/L (3.5-5.1); TOTAL PROTEIN, SERUM 4.7 g/dL (6.0-8.3)
[2024-03-16 07:16] VITALS: PULSE 85; RESP 18
[2024-03-16 07:17] VITALS: PULSE 85; RESP 18; O2SAT 98
[2024-03-16 08:00] VITALS: BP 145/74; PULSE 85; RESP 18; TEMP 97.9
[2024-03-16] MEDS: IRON sUCROse COMPLEX 100 MG/5 ML VIAL IV SCH (10:43)
[2024-03-16] MEDS: PoTASSium chloRIDE 20MEQ ER 20 MEQ ERTAB PO ONE (10:44)
[2024-03-16 10:56] VITALS: BP 145/74
[2024-03-16] MEDS ORDERED: HYDR25 PO (11:16)
[2024-03-16] MEDS ORDERED: GABA100C PO (11:16)
--- NOTE | 2024-03-16 12:00 | NUR ---
PATIENT WITH DISCHARGE ORDERS. WAITING FOR DR. AKERS ANTIBIOTIC RECOMMENDATIONS.
[2024-03-16] MEDS ORDERED: FERS325 PO (12:37)
--- NOTE | 2024-03-16 12:37 | DS ---
Discharge Summary Hospital Course Summary: The patient initially admitted to the hospital March 10, 2024 with the chief complaint of altered mental status. The patient was evaluated in the emergency, laboratory data show WBC of 12.1 with a left shift, neutrophils 81%, creatinine of 3.5, BUN 64. Urinalysis was unremarkable, urine drug screen negative. ABG was done, unremarkable. Chest x-ray shows bilateral airspace consolidation she was just seen vascular congestion/edema versus pneumonia. Small right effusion is seen. CT of head shows mild atrophy. No acute intracranial bleed is seen. Scattered nonspecific white matter changes. 03/11 Pt seen at bedside, no acute events overnight. She is currently not needing pressors or intubation however she is somnolent with rigors suggesting severe infection. Will continue with current care, broad spectrum antibiotics and ICU care. Appreciate nephrology recommendations. 03/12 the patient has been seen and examined earlier this morning during my rounding, no acute events overnight, she is alert oriented x3, hemodynamically stable, saturating normal on air. Results of MRI thoracic and lumbar spine reviewed, discussed with the patient, questions answered. WBC today trending up. 03/13 the patient has been seen and examined during my rounding, downgraded to the medical floor, remains alert oriented x3, BP mildly elevated, 150/81, rest of the vital signs are unremarkable. WBC trending down, today 15.9, discussed with the patient. Findings of MRI lumbar spine reviewed, discussed with the patient, all questions answered. 03/14 the patient has been seen and examined during my rounding, she remains comfortably in bed, hemodynamically stable, afebrile, WBC slowly trending down. Getting good pain control with current medical management, no family members at bedside during my visit. 03/15 patient is seen and examined, comfortably in bed, no acute events overnight, alert and oriented x3, following commands, hemodynamically stable, getting IV antibiotics. The patient with persistent leukocytosis 14.0. Denies chest pain, no shortness a breath, no nausea, no vomiting. Patient with [place] catheter in place, we will remove today. During the course of the hospitalization thoracic and lumbar spine MRI was done, the patient with a history of back surgery several years ago, findings of postoperative changes posterior fusion L1-L2 on the right with pedicle screws and fixation bar, advanced degenerative changes seen at L2-L3 with disc space loss, endplate osteophytes and endplate sclerosis/lucency is underlying infection not excluded. For this reason patient was placed on broad-spectrum antibiotics and infectious disease consultation requested, MRI was done, no evidence of osteomyelitis. The case was discussed with neurosurgeon, medical management recommended an outpatient follow up. 03/16 today the patient is hemodynamically stable, alert oriented x3, no chest pain, shortness shortness for breath, no nausea, no vomiting, plan for the patient to be discharged home today. Results of septic workup negative GENERAL APPEARANCE: The patient is awake, alert, and oriented, in no acute cardiopulmonary distress. NEUROLOGICAL: Cranial nerves II-XII grossly intact. Motor is 5/5 in bilateral upper and lower extremities proximal to distal. No sensory deficits. HEENT: Face is symmetric. Pupils are equal and reactive. Extraocular movements are intact. NECK: Supple. No JVD. No thyromegaly. No submental, submandibular, pre- /postauricular, occipital or supraclavicular lymphadenopathy. CHEST: Normal chest expansion. No Telemetry. LUNGS: Absence of any rales, rhonchi or any wheezing. CARDIOVASCULAR: Regular. S1 and S2 normal. No appreciable rubs, murmurs or gallops. ABDOMEN: Soft, nontender, and nondistended. There is no rebound, voluntary guarding, or rigidity. : Deferred. No [place]. EXTREMITIES: Non-edematous and not cyanotic. No clubbing. Good capillary refill. SKIN: No skin breakdown. 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 Assessment/Plan: Final diagnosis Metabolic encephalopathy Sepsis without shock Pneumonia Chronic renal failure. Hypokalemia, POA Diabetes mellitus type 2 last A1C 9.7 Hypertension Obesity BMI 31.7 PAD both lower extremities Right pleural effusion with mild interstitial fibrosis Possible infectious process involving L1-L2. Discharge Instructions: Patient to be discharged home today, to follow with primary care physician as an outpatient and to return to the hospital if condition changes. Patient agreed with plan and understood the information provided. Home Medications: Active Scripts Cephalexin (Cephalexin) 500 Mg Capsule, 1 CAP PO TID for 7 Days, #21 CAP 0 Refills Prov:JOSLYN RILEY DO 03/08/24 Doxycycline Hyclate (Doxycycline Hyclate) 100 Mg Capsule, 100 MG PO BID, #8 CAP Prov:MILAN VELAZQUEZ LICENSED PHYSICAL THERAPIST 03/07/24 Nifedipine (Nifedipine ER) 30 Mg Tablet.er, 30 MG PO TIDMEALS, #90 TAB 0 Refills Prov:YANDEL GARCIA AGPCNP 03/03/24 Atorvastatin Calcium (LIPITOR) 40 Mg Tablet, 40 MG PO HS, #30 TAB 0 Refills Prov:YANDEL GARCIA AGPCNP 03/03/24 Reported Medications Budesonide/Formoterol Fumarate (Budesonide-Formoterol 160-4.5) 160 Mcg-4.5 Mcg/Actuation Hfa.aer.ad, 1 PUFF IH DAILY for 30 Days, #10.2 GM 0 Refills 03/01/24 Carvedilol (Carvedilol) 6.25 Mg Tablet, 1 TAB PO BID 02/27/24 Fluticasone Propionate (Fluticasone Propionate) 50 Mcg/Actuation [place].susp, 2 SPRAY NS DAILY for 30 Days, #16 GM 0 Refills 02/26/24 Azelastine HCl (Azelastine HCl) 137 Mcg (0.1 %) [place].pump, 2 SPRAY NS BID for 30 Days, #30 ML 0 Refills 02/26/24 Cholecalciferol (Vitamin D3) (Vitamin D3) 25 Mcg (1000 Unit) Capsule, 1 CAP PO DAILY for 30 Days, #30 CAP 0 Refills 02/26/24 Ondansetron HCl (Ondansetron HCl) 4 Mg Tablet, 1 TAB PO Q4HPRN PRN for nausea/vomiting for 3 Days, #18 TAB 0 Refills 02/26/24 Aspirin (Aspirin) 81 Mg Tab.chew, 1 TAB PO DAILY for 30 Days, #30 TAB 0 Refills 02/26/24 Montelukast Sodium (Singulair) 10 Mg Tablet, 10 MG PO HS, TAB 02/26/24 Dapagliflozin Propanediol (Farxiga) 5 Mg Tablet, 5 MG PO DAILY, TAB 02/26/24 Hydralazine HCl (Hydralazine HCl) 50 Mg Tablet, 1 TAB PO BID for 30 Days, #60 TAB 0 Refills 02/26/24 Torsemide (Torsemide) 20 Mg Tablet, 1 TAB PO DAILY for 30 Days, #30 TAB 0 Refills 02/26/24 Losartan Potassium (Losartan Potassium) 100 Mg Tablet, 1 TAB PO DAILY for 30 Days, #30 TAB 0 Refills 02/26/24 Omeprazole (Omeprazole) 40 Mg Capsule.dr, 1 CAP PO DAILY for 30 Days, #30 CAP 0 Refills 02/26/24 Clopidogrel Bisulfate (Plavix) 75 Mg Tablet, 1 TAB PO DAILY for 30 Days, #30 TAB 0 Refills 02/26/24 Vit B Cmplx 3/FA/Vit C/Biotin (Shazia-Al Rx Tablet) 1 Mg-60 Mg-300 Mcg Tablet, 1 TAB PO DAILY for 30 Days, #30 TAB 0 Refills 02/26/24 Gabapentin (Gabapentin) 100 Mg Capsule, 3 CAP PO BID for 30 Days, #90 CAP 0 Refills 02/26/24 Time spent arranging discharge: 31-60 minutes DEYANIRA ADAMSON MD Mar 16, 2024 12:36
--- NOTE | 2024-03-16 13:34 | PN ---
NEPHROLOGY PROGRESS NOTE Date/Time Patient Seen: Mar 16, 2024 SUBJECTIVE: This is a 68 year old female with a past medical history of congestive heart failure history, hypertension, hyperlipidemia and chronic low back pain. She presented to the emergency room with complaints of altered mental status. Patient has a recent hospital admission for similar reason and was discharged on 03/07/2024 Blood culture has been negative She continues on broad-spectrum antibiotics, including vancomycin. Imaging studies were noted. Neurosurgery has been consulted for possible lumbar spines osteomyelitis She was noted to have elevated BUN/creatinine. We are consulted for renal failure. Renal function and electrolytes are stable. Iron panel was noted. She was seen in the medical floor, in no acute distress She is complaining of mouth sores. Condition is critical and guarded REVIEW OF SYSTEMS: GENERAL: Positive for generalized weakness NEUROLOGIC: Negative for any blurry vision, blind spots, double vision, facial asymmetry, dysphagia, dysarthria, hemiparesis, hemisensory deficits, vertigo, ataxia. HEENT: Negative for any head trauma, neck trauma, neck stiffness, photophobia, phonophobia, sinusitis, rhinitis. CARDIAC: Negative for any chest pain, dyspnea on exertion, paroxysmal nocturnal dyspnea, peripheral edema. PULMONARY: Negative for any shortness of breath, wheezing, COPD, or TB exposure. GASTROINTESTINAL: Negative for any abdominal pain, nausea, vomiting, bright red blood per rectum, melena. GENITOURINARY: Negative for any dysuria, hematuria, incontinence. INTEGUMENTARY: Negative for any rashes, cuts, insect bites. RHEUMATOLOGIC: Negative for any joint pains, photosensitive rashes, history of vasculitis or kidney problems. HEMATOLOGIC: Negative for any abnormal bruising, frequent infections or bleeding. Vital Signs (last 8hr) Date Time Temp Pulse Resp B/P (MAP) Pulse Ox O2 Delivery O2 Flow Rate FiO2 03/12/24 12:03 82 16 03/12/24 12:00 98.4 99 23 158/85 94 Room Air 03/12/24 11:00 83 10 170/86 93 Room Air 03/12/24 10:00 82 12 174/89 96 Room Air 03/12/24 09:00 93 15 163/79 94 Room Air 03/12/24 08:16 164/68 03/12/24 08:00 95 Room Air* 0 21 03/12/24 08:00 97 17 161/94 93 Room Air 03/12/24 07:00 97.9 93 15 164/68 90 Nasal Cannula 2.0 03/12/24 06:38 92 16 03/12/24 06:38 92 16 N/Cannula Low lpm 2.0 28 PHYSICAL EXAM: GENERAL: Alert and oriented x 3. No acute distress. Well-nourished. EYES: EOMI. Anicteric. HENT: Moist mucous membranes. No scleral icterus. No cervical lymphadenopathy. LUNGS: Clear to auscultation bilaterally. No accessory muscle use. CARDIOVASCULAR: Regular rate and rhythm. No murmur. No JVD. ABDOMEN: Soft, non-tender and non-distended. No palpable masses. EXTREMITIES: No edema. Non-tender. SKIN: No rashes or lesions. Warm. NEUROLOGIC: No focal neurological deficits. CN II-XII grossly intact, but not in dividually tested. PSYCHIATRIC: Cooperative. Appropriate mood and affect. Current Medications Medications (Trade) Dose Ordered Sig/Yefri Route PRN Reason Start Time Stop Time Status Last Admin Dose Admin Acetaminophen (TYLenol 325MG TAB) 650 mg Q6H PRN PO TEMPERATURE GREATER THAN 101.5 03/10/24 23:00 03/11/24 17:42 DC 03/11/24 17:35 650 MG Acetaminophen (TYLenol 325MG TAB) 650 mg Q6H PRN PO MILD PAIN (1-3) 03/11/24 17:30 04/10/24 17:29 03/12/24 08:15 650 MG Albuterol (DUOneb) 1 UDVIAL [id number] IH 03/11/24 00:00 04/10/24 00:00 03/12/24 12:02 1 UDVIAL Albuterol Sulfate (Proventil 0.083% 2.5mg/3ml) 2.5MG Q4H PRN IH SHORTNESS OF BREATH 03/10/24 23:00 04/09/24 22:59 Azithromycin 250 ml @ 250 mls/hr Q24H STAT IVPB 03/10/24 20:16 03/10/24 21:15 DC 03/10/24 20:42 250 MLS/HR Calcium Gluconate 1 gm/Sodium Chloride 100 ml @ 0 mls/hr PROTOCOL IV 03/10/24 22:00 04/09/24 21:59 Calcium Gluconate 1 gm/Sodium Chloride 100 ml @ 0 mls/hr PROTOCOL IV 03/11/24 05:00 03/11/24 04:51 DC Carvedilol (Coreg 6.25MG) 6.25 mg BIDMEALS PO 03/10/24 22:00 04/09/24 21:59 03/12/24 08:16 6.25 MG Ceftriaxone Sodium (ROCEphine 1G INJ) 1 gm ONCE STAT IVPB 03/10/24 20:16 03/10/24 20:18 DC 03/10/24 20:42 1 GM Dextrose (D50w) 50 ml AD PRN IV HYPOGLYCEMIA PROTOCOL 03/10/24 21:30 04/09/24 21:29 Doxycycline Hyclate 250 ml @ 125 mls/hr Q12H IV 03/11/24 12:00 03/11/24 10:45 DC Famotidine (Pepcid 20mg Vial) 20 mg DAILY IV 03/11/24 09:00 04/10/24 08:59 03/12/24 08:16 20 MG Furosemide (LASix 20MG VIAL) 20 mg Q8H IV 03/10/24 21:30 04/09/24 21:29 03/12/24 05:44 20 MG Gabapentin (NEURontin 100 mg CAP) 100 mg TID PO 03/12/24 10:00 04/11/24 09:59 03/12/24 10:11 100 MG Glucagon (Glucagon 1mg Kit) 1 mg AD PRN IM HYPOGLYCEMIA PROTOCOL 03/10/24 21:30 04/09/24 21:29 Heparin Sodium (Porcine) (HEParin 5,000 UNIT VIAL) 5,000 unit BID SQ 03/11/24 09:00 04/10/24 08:59 03/12/24 08:18 5,000 UNIT Heparin Sodium (Porcine) (HEParin 5,000 UNIT VIAL) 5,000 unit BID SQ 03/11/24 09:00 03/10/24 23:12 DC Hydralazine HCl (APRESOLine 20MG INJ) 10 mg Q6H PRN IV For:SBP above 160;DBP above 90 03/10/24 23:00 04/09/24 22:59 03/12/24 10:12 10 MG Hydromorphone HCl (DiLAUDid 1MG INJ) 1 mg Q4H PRN IVP SEVERE PAIN (7-10) 03/12/24 10:00 03/17/24 09:59 03/12/24 10:43 1 MG Insulin Human Regular (humuLIN R 100 UNIT/ML 3ML) INSULIN SLIDING SCAL... ACHS SQ 03/12/24 11:30 04/11/24 11:29 Insulin Human Regular (humuLIN R 100 UNIT/ML 3ML) INSULIN SLIDING SCAL... Q6H6 SQ 03/11/24 00:00 03/12/24 10:40 DC 03/11/24 18:22 3 UNIT Levofloxacin/ Dextrose 50 ml @ 50 mls/hr Q48H IVPB 03/11/24 11:00 03/21/24 10:59 03/11/24 12:40 50 MLS/HR Levofloxacin/ Dextrose 100 ml @ 100 mls/hr Q24H IV 03/11/24 11:00 03/11/24 10:53 DC Lorazepam (AtiVAN) 1 mg ONCE STAT IVP 03/10/24 17:39 03/10/24 17:40 DC 03/10/24 17:46 1 MG Meropenem (Merrem) 500 mg Q12H IVPB 03/11/24 11:00 03/21/24 10:59 03/12/24 10:11 500 MG Meropenem 500 mg/ Sodium Chloride 100 ml @ 33.333 mls/ hr Q12H IV 03/11/24 10:30 03/11/24 10:48 DC Methylprednisolone Sodium Succinate (Solu-medROL 40MG) 40 mg BID IVP 03/11/24 09:00 03/11/24 10:45 DC 03/11/24 09:36 40 MG Ondansetron HCl (zoFRAN 4MG INJ) 4 mg Q6H PRN IV NAUSEA/VOMITING 03/10/24 23:00 04/09/24 22:59 03/12/24 11:55 4 MG Piperacillin Sod/ Tazobactam Sod (Zosyn 3.375gm+NS 50ml) 3.375 gm Q12H IVPB 03/10/24 21:00 03/11/24 10:45 DC 03/11/24 09:36 3.375 GM Sodium Chloride 1,000 ml @ 500 mls/hr Q2H STAT IV 03/10/24 20:04 03/10/24 22:03 DC 03/10/24 20:40 500 MLS/HR Sodium Chloride (NS 50ml) 50 ml AD IV 03/11/24 00:00 03/10/24 21:15 DC Vancomycin HCl 250 ml @ 125 mls/hr Q48H IV 03/13/24 11:30 03/23/24 11:29 Vancomycin HCl (Vancomycin Protocol) 1 each AD IV 03/11/24 10:30 03/25/24 10:29 LABORATORY: [ ] Hematology Labs: Test 03/16/24 05:06 Range/Units White Blood Count 12.2 H 4.8-10.8 K/uL Red Blood Count 3.38 L 4.00-5.50 MIL/uL Hemoglobin 10.4 L 12.0-16.0 g/dL Hematocrit 32.3 L 36-48 % Mean Corpuscular Volume 95.6 79-99 fL Mean Corpuscular Hemoglobin 30.8 27.0-33.0 pg Mean Corpuscular Hemoglobin Concent 32.2 32.0-36.0 g/dL Red Cell Distribution Width 14.8 11.0-15.5 % Platelet Count 217 130-400 K/uL Mean Platelet Volume 12.3 H 7.5-10.5 fL Nucleated Red Blood Cells 0.0 0.0-0.19 % Chemistry Labs: Test 03/16/24 05:12 03/16/24 05:06 03/15/24 11:07 Range/Units Whole Blood Glucose 70 # 70-110 MG/DL Sodium Level 146 H 136-145 mmol/L Potassium Level 3.2 L 3.5-5.1 mmol/L Chloride Level 110 101-111 mmol/L Carbon Dioxide Level 29 21-32 mmol/L Blood Urea Nitrogen 54 H 7-18 mg/dL Creatinine 2.3 H 0.5-1.0 mg/dL Glomerular Filtration Rate Calc 23 >90 mL/min Random Glucose 78 70-105 mg/dL Total Calcium 7.7 L 8.5-10.1 mg/dL Phosphorus Level 4.7 2.5-4.9 mg/dL Magnesium Level 2.00 1.80-2.40 mg/dL Total Bilirubin 0.3 0.2-1.0 mg/dL Aspartate Amino Transf (AST/SGOT) 19 10-37 U/L Alanine Aminotransferase (ALT/SGPT) 22 12-78 U/L Alkaline Phosphatase 83 50-136 U/L Total Protein 4.7 L 6.0-8.3 g/dL Albumin 1.3 L 3.5-5.0 g/dL Bedside Glucose Comment Notified Nurse DIAGNOSTICS / RADIOLOGY: REASON: AMS ORDERING PHYSICIAN: DENA FAUST PROCEDURE: BRAIN WO - MR BRAIN WO CON MR BRAIN WO CON HISTORY: Altered mental status COMPARISON: None TECHNIQUE: MRI of the brain was performed utilizing multiple pulse sequences in axial, coronal and sagittal planes. Patient was not given contrast through intravenous route. FINDINGS: The ventricles and extraventricular CSF spaces are dilated consistent with cerebral atrophy. Nonspecific white matter changes are seen. There is no midline shift, mass effect or herniation. No subacute hemorrhage is seen. No MR evidence of acute infarct is seen in the diffusion weighted images. Cerebellar tonsils are in normal position. There are bilateral ethmoid and sphenoid sinusitis with mucoperiosteal thickening. No MR evidence of a mass lesion is seen in this noncontrast study. IMPRESSION: 1. No MR evidence of acute infarct is seen in the diffusion weighted images. Atrophy with white matter changes. DICTATED BY: GARRICK ROWLAND MD DATE: 03/12/24 1655 REASON: PNEUMONIA ORDERING PHYSICIAN: YUE AKERS MD PROCEDURE: CHEST WO - CT CHEST W/O CONTRAST CT CHEST W/O CONTRAST HISTORY: Pneumonia COMPARISON: None TECHNIQUE: Multiple sequential axial images of the chest were obtained from the thoracic inlet through upper abdomen. Patient was not given contrast through intravenous route. FINDINGS: There are bilateral pleural effusions with compressive atelectasis. Coronary arterial calcifications are seen. Gallbladder is distended. There is mild anasarca. No pleural effusion or pericardial effusion is seen. There is no evidence of pneumothorax. There are normal size mediastinal and hilar lymph nodes. The heart is not enlarged. Degenerative changes of the thoracolumbar spine are present. There is no evidence of adrenal nodule. IMPRESSION: 1. Mild to moderate bilateral pleural effusions with compressive atelectasis. CT was performed with one or more following dose reduction techniques: automated exposure control, adjustment of the mA and kv according to patient's size, or use of a iterative reconstruction technique. DICTATED BY: GARRICK ROWLAND MD DATE: 03/12/24 1715 REASON: Rule out ostemyelitis ORDERING PHYSICIAN: JUAN ANTONIO ALLISON NON PROFIT JOB TITLES PROCEDURE: L SPN WO - MR SPINAL CANAL, LUMBAR WO CON MR SPINAL CANAL, LUMBAR WO CON HISTORY: Pain COMPARISON: CT from 03/11/2024 TECHNIQUE: MRI of the lumbar spine was performed utilizing multiple pulse sequences in axial and sagittal plane. Patient was not given contrast through intravenous route. FINDINGS: Endplate degenerative changes with disc space narrowing are seen predominantly involving the L1-L2 level. Orthopedic fixation plates and screws are seen traversing the T12 and L1 with paramagnetic susceptibility artifacts limiting evaluation. There is disc noted at the lumbosacral junction and for numbering purposes only, this level will be designated as S1-S2. No abnormal signal intensity is seen of the visualized bony structure. No loss of vertebral height is seen. There is straightening of normal lumbar curvature which may be related to muscle spasm or positioning. Degenerative disc signals are present at all lumbar spine levels. Visualized distal conus is unremarkable. At the L2-3 level, there is spondylotic with central disc protrusion/herniation with bilateral ligamentum flavum hypertrophy causing anterior thecal sac compression with bilateral lateral recess stenosis and bilateral neural foraminal stenosis. The thecal sac measures approximately 7 mm in its anterior posterior dimension. At the L3-4 level, there is spondylotic disc with bilateral ligamentum flavum hypertrophy causing anterior thecal sac compression with bilateral lateral recess stenosis and bilateral neural foraminal stenosis. The thecal sac measures approximately 6.2 mm in its anterior posterior dimension. At the L4-5 level, there is spondylotic disc with bilateral ligamentum flavum hypertrophy causing anterior thecal sac compression with bilateral lateral recess stenosis and bilateral neural foraminal stenosis. The thecal sac measures approximately 8.4 mm in its anterior posterior dimension. At the L5-S1 level, there is spondylotic disc with bilateral ligamentum flavum hypertrophy and facet hypertrophy causing anterior thecal sac compression with bilateral lateral recess stenosis and bilateral neural foraminal stenosis. The thecal sac measures approximately 8.2 mm in its anterior posterior dimension. IMPRESSION: 1. DJD with lumbar spine spondylosis as described above. Evaluation at T12 and L1 are limited due to postop artifacts. DICTATED BY: GARRICK ROWLAND MD DATE: 03/12/24 8570 REASON: sepsis, backpain, ruling out device infection ORDERING PHYSICIAN: JUAN ANTONIO ALLISON NON PROFIT JOB TITLES PROCEDURE: T SPINE WO - CT THORACIC SPINE W/O CONTRAST CT THORACIC SPINE W/O CONTRAST, CT LUMBAR SPINE W/O CONTRAST HISTORY: sepsis, back pain, ruling out device infection TECHNIQUE: CT THORACIC SPINE W/O CONTRAST, CT LUMBAR SPINE W/O CONTRAST. Coronal and sagittal reformats were obtained. CT was performed with one or more of the following dose reduction techniques: Automated exposure control, adjustment of the mA and/or kV according to the patient's size, or use of the iterative reconstruction technique. FINDINGS: Evaluation of the cord and discs is limited with CT. No evidence of compression fracture or dislocation. There is diffuse osteopenia degraded evaluation of the study. Multilevel degenerative changes are noted. Postop changes of posterior fusion are seen at L1-L2 on the right with pedicle screws and fixation bar. Advanced degenerative changes are seen at L2-L3 with disc space loss, endplate osteophytes and endplate sclerosis/lucencies, underlying infection is not excluded. Correlate clinically. Stimulator leads are seen in the lower thoracic spine. Small left and moderate right pleural effusion with bilateral lower lobe consolidation. The aorta is normal in caliber. No acute findings in the visualized abdomen. The visualized lungs are clear. IMPRESSION: There is diffuse osteopenia degraded evaluation of the study. Multilevel degenerative changes are noted. Postop changes of posterior fusion are seen at L1-L2 on the right with pedicle screws and fixation bar. Advanced degenerative changes are seen at L2-L3 with disc space loss, endplate osteophytes and endplate sclerosis/lucencies, underlying infection is not excluded. Correlate clinically. Stimulator leads are seen in the lower thoracic spine. Small left and moderate right pleural effusion with bilateral lower lobe consolidation.. DICTATED BY: DEVON GEORGES MD DATE: 03/11/24 1245 REASON: sepsis, backpain, ruling out device infection ORDERING PHYSICIAN: JUAN ANTONIO ALLISON CNP PROCEDURE: L SPIN WO - CT LUMBAR SPINE W/O CONTRAST CT THORACIC SPINE W/O CONTRAST, CT LUMBAR SPINE W/O CONTRAST HISTORY: sepsis, back pain, ruling out device infection TECHNIQUE: CT THORACIC SPINE W/O CONTRAST, CT LUMBAR SPINE W/O CONTRAST. Coronal and sagittal reformats were obtained. CT was performed with one or more of the following dose reduction techniques: Automated exposure control, adjustment of the mA and/or kV according to the patient's size, or use of the iterative reconstruction technique. FINDINGS: Evaluation of the cord and discs is limited with CT. No evidence of compression fracture or dislocation. There is diffuse osteopenia degraded evaluation of the study. Multilevel degenerative changes are noted. Postop changes of posterior fusion are seen at L1-L2 on the right with pedicle screws and fixation bar. Advanced degenerative changes are seen at L2-L3 with disc space loss, endplate osteophytes and endplate sclerosis/lucencies, underlying infection is not excluded. Correlate clinically. Stimulator leads are seen in the lower thoracic spine. Small left and moderate right pleural effusion with bilateral lower lobe consolidation. The aorta is normal in caliber. No acute findings in the visualized abdomen. The visualized lungs are clear. IMPRESSION: There is diffuse osteopenia degraded evaluation of the study. Multilevel degenerative changes are noted. Postop changes of posterior fusion are seen at L1-L2 on the right with pedicle screws and fixation bar. Advanced degenerative changes are seen at L2-L3 with disc space loss, endplate osteophytes and endplate sclerosis/lucencies, underlying infection is not excluded. Correlate clinically. Stimulator leads are seen in the lower thoracic spine. Small left and moderate right pleural effusion with bilateral lower lobe consolidation.. DICTATED BY: DEVON GEORGES MD DATE: 03/11/24 1245 REASON: AMS ORDERING PHYSICIAN: NOEL DUARTE NP PROCEDURE: HEAD WO - CT HEAD/BRAIN W/O CONTRAST CT HEAD/BRAIN W/O CONTRAST INDICATION: AMS TECHNIQUE: CT HEAD/BRAIN W/O CONTRAST. CT was performed with one or more of the following dose reduction techniques: Automated exposure control, adjustment of the mA and/or kV according to the patient's size, or use of the iterative reconstruction technique. Comparison: None FINDINGS: Cerebral atrophy seen. Nonspecific periventricular and subcortical white matters changes are noted likely representing small vessel ischemic changes. No midline shift or herniation. No extra axial collection. No acute intracranial bleed. The visualized paranasal sinuses and mastoid air cells are normally aerated. IMPRESSION: Mild atrophy. No acute intracranial bleed is seen. Scattered nonspecific white matter changes DICTATED BY: DEVON GEORGES MD DATE: 03/10/24 4769 REASON: SOB ORDERING PHYSICIAN: NOEL DUARTE NP PROCEDURE: CXR1VW - CHEST 1VW INDICATION: SOB TECHNIQUE: CHEST 1VW COMPARISON: 03/08/2024 FINDINGS/IMPRESSION: Bilateral airspace consolidation suggesting vascular congestion/edema versus pneumonia. Small right effusion is seen. Cardiomegaly is seen Mild degenerative changes of the spine. The visualized upper abdomen appears unremarkable. DICTATED BY: DEVON GEORGES MD DATE: 03/10/241818 ASSESSMENT: Hypokalemia Acute on chronic renal failure Nephrotic syndrome Metabolic encephalopathy Sepsis without shock Pneumonia Diabetes mellitus type 2 Hypertension Obesity BMI 31.7 PAD both lower extremities Right pleural effusion with mild interstitial fibrosis Possible infectious process involving L1-L2. PLAN: Labs, diagnostic, radiologic exams reviewed and interpreted by myself and supervising physician. We have reviewed external records in detail Pending discharge disposition later today. From Nephrology standpoint, patient may be discharged Follow up in the renal clinic in 1-2 weeks. Monitor blood pressure adjust medication doses as needed Avoid hypotensive episodes Monitor blood sugars Strict intake, output, and daily weight should be monitored Please renally adjust medications Avoid nephrotoxic and nonsteroidal drugs Avoid contrast if possible Will continue to monitor renal function, anemia, electrolytes Treatment plan discussed with patient Questions were answered We have discussed with the other team physicians in detail about the care plan We will continue to monitor the patient closely ATTESTATION BY PHYSICIAN I have seen and examined the patient. I reviewed the documentation, medical d ecision making, and treatment plan as noted by the mid-level provider above. I agree with the findings and plan of care. LIZZY TRONCOSO MD, [facility] Mar 16, 2024 13:34
--- NOTE | 2024-03-16 14:45 | NUR ---
DISCONTINUED IV ACCESS. PATIENT READY FOR DISCHARGE. DISCUSSED FOLLOW UP APPOINTMENTS, HOME MEDICATIONS AND PLAN OF CARE. PATIENT VERBALIZED UNDERSTANDING. GOT DISCHARGED AT 1500.
--- NOTE | 2024-03-16 15:40 | PN ---
INFECTIOUS DISEASE PROGRESS NOTE Date of Service: Mar 16, 2024 SUBJECTIVE: This is a 68-year-old female patient who was admitted with chief complaint altered mental status and muscle spasms. 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 Patient was seen and examined at bedside in room 327. Patient is sitting up on the bedside chair. No dyspnea observe and saturating 92-95% on room air. Patient is afebrile, temperature is 97.9. Patient is being discharged to home today. No antibiotics needed on discharge. PHYSICAL EXAM EYES: Anicteric. Pupils equal and reactive. HENT: No oral thrush seen, moist Oral mucosa. NECK: Supple, no JVD or thyromegaly. LUNGS: Good air entry. No rales, no rhonchi. CARDIOVASCULAR: S1, S2 regular. No murmur heard. ABDOMEN: Soft, non tender, bowel sounds present, no organomegaly. CENTRAL NERVOUS SYSTEM: Awake, alert, oriented x 3. SKIN: No rashes, no swelling. LYMPHATICS: No peripheral lymphadenopathy. MUSCULOSKELETAL: No joint swelling, erythema or tenderness. EXTREMITIES: No cyanosis or clubbing. BACK: No deformity, no pressure ulcer. GENITOURINARY: No dysuria or hematuria. Vital Sign (Last 12 Hours) 03/16/24 03/16/24 03/16/24 03/16/24 04:00 07:16 07:17 08:00 Temp 98.1 97.9 Pulse 84 85 85 85 Resp 20 18 18 18 B/P (MAP) 125/80 145/74 Pulse Ox 95 92 O2 Delivery Room Air N/A Room Air Room Air FiO2 21 21 03/16/24 10:56 B/P (MAP) 145/74 Intake & Output (last 24hrs) 03/15/24 03/15/24 03/16/24 15:00 23:00 07:00 Intake Total 100.0 ml Output Total 200 ml Balance -200 ml 100.0 ml LABS: Laboratory: Test 03/16/24 05:12 03/16/24 05:06 03/15/24 11:07 Range/Units Whole Blood Glucose 70 # 70-110 MG/DL White Blood Count 12.2 H 4.8-10.8 K/uL Red Blood Count 3.38 L 4.00-5.50 MIL/uL Hemoglobin 10.4 L 12.0-16.0 g/dL Hematocrit 32.3 L 36-48 % Mean Corpuscular Volume 95.6 79-99 fL Mean Corpuscular Hemoglobin 30.8 27.0-33.0 pg Mean Corpuscular Hemoglobin Concent 32.2 32.0-36.0 g/dL Red Cell Distribution Width 14.8 11.0-15.5 % Platelet Count 217 130-400 K/uL Mean Platelet Volume 12.3 H 7.5-10.5 fL Nucleated Red Blood Cells 0.0 0.0-0.19 % Sodium Level 146 H 136-145 mmol/L Potassium Level 3.2 L 3.5-5.1 mmol/L Chloride Level 110 101-111 mmol/L Carbon Dioxide Level 29 21-32 mmol/L Blood Urea Nitrogen 54 H 7-18 mg/dL Creatinine 2.3 H 0.5-1.0 mg/dL Glomerular Filtration Rate Calc 23 >90 mL/min Random Glucose 78 70-105 mg/dL Total Calcium 7.7 L 8.5-10.1 mg/dL Phosphorus Level 4.7 2.5-4.9 mg/dL Magnesium Level 2.00 1.80-2.40 mg/dL Total Bilirubin 0.3 0.2-1.0 mg/dL Aspartate Amino Transf (AST/SGOT) 19 10-37 U/L Alanine Aminotransferase (ALT/SGPT) 22 12-78 U/L Alkaline Phosphatase 83 50-136 U/L Total Protein 4.7 L 6.0-8.3 g/dL Albumin 1.3 L 3.5-5.0 g/dL Bedside Glucose Comment Notified Nurse ASSESSMENT: Leukocytosis. Acute on chronic renal failure. Heart failure. Multifactorial Encephalopathy. Diabetes mellitus. Iron-deficiency Anemia. Bilateral pleural effusion. Anterior thecal sac compression on lumbar MRI. PLAN: Patient is being discharged to home today. No antibiotics needed on discharge. This case was reviewed and discussed with my supervising physician and the above assessment and plan was formulated and agreed upon. ATTESTATION BY PHYSICIAN I have seen and examined the patient. I reviewed the documentation, medical decision making, and treatment plan as noted by the mid-level provider above. I agree with the findings and plan of care. YUE AKERS MD, MIRTA L FNP Mar 16, 2024 15:40
== END 2024-03-16 15:00 | disposition home or self-care (01) | DRG 871 ==
LOC: EDH 17:11 → EDHIP 20:18 → 2CH 22:43 → 3DH 03-13 13:00
PROVIDERS: ADMIT Internal Medicine; ATTEND Internal Medicine
PROC: 4A00X4Z Measurement of Central Nervous Electrical Activity, External Approach (ICD-10-PCS; principal; 2024-03-10)
DX: A41.9 Sepsis, unspecified organism (principal); G93.41 Metabolic encephalopathy; J18.9 Pneumonia, unspecified organism; I50.33 Acute on chronic diastolic (congestive) heart failure; N17.0 Acute kidney failure with tubular necrosis; J96.01 Acute respiratory failure with hypoxia; J44.0 Chronic obstructive pulmonary disease with (acute) lower respiratory infection; I13.0 Hypertensive heart and chronic kidney disease with heart failure and stage 1 through stage 4 chronic kidney disease, or unspecified chronic kidney disease; J98.11 Atelectasis; D84.9 Immunodeficiency, unspecified; R68.89 Other general symptoms and signs; E11.22 Type 2 diabetes mellitus with diabetic chronic kidney disease; E11.51 Type 2 diabetes mellitus with diabetic peripheral angiopathy without gangrene; E11.65 Type 2 diabetes mellitus with hyperglycemia; E87.6 Hypokalemia; Z68.31 Body mass index [BMI] 31.0-31.9, adult; N18.9 Chronic kidney disease, unspecified; E66.9 Obesity, unspecified; M24.28 Disorder of ligament, vertebrae; I25.10 Atherosclerotic heart disease of native coronary artery without angina pectoris; G89.29 Other chronic pain; M54.9 Dorsalgia, unspecified; D64.9 Anemia, unspecified; D50.9 Iron deficiency anemia, unspecified; R65.20 Severe sepsis without septic shock; M47.816 Spondylosis without myelopathy or radiculopathy, lumbar region; Z86.73 Personal history of transient ischemic attack (TIA), and cerebral infarction without residual deficits; Z83.3 Family history of diabetes mellitus; Z79.82 Long term (current) use of aspirin; Z79.899 Other long term (current) drug therapy
CPT/HCPCS: 36415; 36600; 70450; 70551; 71045; 71250; 72128; 72131; 72148; 80048; 80053; 80305; 81001; 82140; 82308; 82310; 82570; 82728; 82803; 82948; 83036; 83540; 83550; 83605; 83735; 83880; 83935; 83970; 84100; 84145; 84300; 84443; 84484; 85025; 85027; 87040; 87641; 93005; 94640; 94664; 95819; 96372; 96375; 99284; 99285; G0378; J0360; J0456; J0612; J0696; J1100; J1171; J1644; J1756; J1815; J1940; J1956; J2060; J2185; J2270; J2405; J2543; J2919; J3475; J3490; J7030; J3370